=== PATIENT | male | born 1960 | race Hispanic/Latino ===

== ENCOUNTER 2016-12-22 18:03 | Observation (INO) | payer MEDICAID, OTHER ==
[2016-12-22 18:03] VITALS: PULSE 73
[2016-12-22 18:16] VITALS: BMI 27.1
--- NOTE | 2016-12-22 18:36 | ED PDOC ---
Arrival/HPI - General Chief Complaint: Alcohol Ingestion Time Seen by Provider: 12/22/16 18:08 Historian: Patient - History of Present Illness Narrative History of Present Illness (Text): 12/22/16 18:32 56 year old male brought in by ambulance for alcohol intoxication. Patient admits to drinking today. No other complaints at this time. Time/Duration: 24 hours Symptom Onset: Gradual Modifying Factors (Text): None Associated Symptoms (Text): None Past Medical History - Provider Review Nursing Documentation Reviewed: Yes - Past History Past History: Unable to Obtain - Infectious Disease Hx of Infectious Diseases: None - Tetanus Immunization Tetanus Immunization: Unknown - Cardiac Hx Cardiac Disorders: Yes Hx Hypertension: Yes Hx Peripheral Edema: Yes - Pulmonary Hx Respiratory Disorders: No - Neurological Hx Neurological Disorder: No - HEENT Hx HEENT Disorder: No - Renal Hx Renal Disorder: No - Endocrine/Metabolic Hx Endocrine Disorders: No - Hematological/Oncological Hx Cancer: No - Integumentary Hx Dermatological Disorder: No - Musculoskeletal/Rheumatological Hx Musculoskeletal Disorders: Yes Hx Fractures: Yes - Gastrointestinal Hx Gastrointestinal Disorders: No - Genitourinary/Gynecological Hx Genitourinary Disorders: No Hx Reproductive Disorders: No - Psychiatric Hx Psychophysiologic Disorder: Yes Hx Anxiety: Yes Hx Bipolar Disorder: Yes Hx Depression: Yes Hx Substance Use: No - Past Surgical History Past Surgical History: Non-Contributing - Surgical History Hx Orthopedic Surgery: Yes - Anesthesia Hx Anesthesia: Yes Hx Anesthesia Reactions: No - Suicidal Assessment Feels Threatened In Home Enviroment: No Family/Social History - Physician Review Nursing Documentation Reviewed: Yes Family/Social History: Unknown Family HX Smoking Status: cigar Hx Alcohol Use: Yes Amount per day: 10 Hx Substance Use: No Hx Substance Use Treatment: No Allergies/Home Meds Allergies/Adverse Reactions: Allergies No Known Allergies Allergy (Verified 12/22/16 18:11) Home Medications: Home Meds Medication Instructions Recorded Confirmed Aspirin [Aspirin Chewable] 81 mg PO DAILY 10/24/16 10/24/16 Metoprolol Succinate [Toprol XL] 25 mg PO DAILY 10/24/16 10/24/16 QUEtiapine [SEROquel] 0.5 tab PO DAILY 10/24/16 10/24/16 Venlafaxine [Effexor 50 MG] 225 mg PO DAILY 10/24/16 10/24/16 Review of Systems - Physician Review All systems were reviewed & negative as marked: Yes - Review of Systems Respiratory: absent: SOB Cardiovascular: absent: Chest Pain Gastrointestinal: absent: Abdominal Pain Physical Exam - Physical Exam Narrative Physical Exam (Text): Constitutional: No acute distress. Alcohol on breath. Head: Normocephalic. Atraumatic. Eyes: PERRL. ENT: Moist mucous membranes. Neck: Supple. Cardiovascular: Regular rate. Chest: No tenderness. Respiratory: Clear to auscultation bilaterally. GI: Soft. Nontender. Nondistended. Multiple scratch shelton on abdomen. Back: No CVA tenderness. Musculoskeletal: No tenderness or swelling of extremities. Skin: No rash. Neurologic: Alert, no focal deficit. Unsteady gait. Vital Signs Reviewed: Yes Vital Signs Temp Pulse Resp BP Pulse Ox 12/22/16 18:44 97.7 F 12/22/16 18:14 94 H 20 141/80 100 Blood Pressure: Normal Pulse: Regular Respiratory Rate: Normal Appearance: Positive for: Well-Appearing, Non-Toxic, Comfortable Pain Distress: None Mental Status: Positive for: other (Awake, Alert) Finger Stick Blood Glucose: 97 Medical Decision Making ED Course and Treatment: Impression: 56 year old male brought in by ambulance for alcohol intoxication. Plan: -- EKG, Chest X-ray -- Labs -- OBS Progress Notes: ED OBSERVATION Date of observation admission: 12/22/16 Time of observation admission: 18:32 - Observation admission statement Patient is being placed in observation because:: alcohol intoxication - Goals of Observation Goals of observation are:: pending sobriety - Progress Note Progress Note: 12/22/16 18:36 On initial exam patient has unsteady gait, alcohol on breath. 12/22/16 20:46 Patient resting comfortably in no acute distress. 12/22/16 22:30 Unsteady gait. Will sign out to ER night team pending sobriety. - Scribe Statement The provider has reviewed the documentation as recorded by the Josi Phoenix Provider Scribe Attestation: All medical record entries made by the Scribe were at my direction and personally dictated by me. I have reviewed the chart and agree that the record accurately reflects my personal performance of the history, physical exam, medical decision making, and the department course for this patient. I have also personally directed, reviewed, and agree with the discharge instructions and disposition. Disposition/Present on Arrival - Present on Arrival Any Indicators Present on Arrival: No History of DVT/PE: No History of Uncontrolled Diabetes: No Urinary Catheter: No History of Decub. Ulcer: No History Surgical Site Infection Following: None - Disposition Have Diagnosis and Disposition been Completed?: Yes Diagnosis: Alcohol abuse Disposition Time: 18:32 Condition: STABLE
[2016-12-23 04:41] VITALS: BP 122/75; PULSE 112; RESP 18; TEMP 98.5; O2SAT 96
== END 2016-12-23 05:42 | disposition home or self-care (01) ==
LOC: ED 18:03 → EROBSV 18:32
PROVIDERS: ADMIT Student in an Organized Health Care Education/Training Program; ATTEND Student in an Organized Health Care Education/Training Program
DX: F10.10 Alcohol abuse, uncomplicated (principal); Y90.9 Presence of alcohol in blood, level not specified
CPT/HCPCS: 82948; 99283; G0378

== ENCOUNTER 2017-03-04 14:25 | Observation (INO) | payer MEDICAID, OTHER ==
[2017-03-04 14:25] VITALS: PULSE 73
[2017-03-04 14:33] VITALS: BMI 34.0
--- NOTE | 2017-03-04 14:46 | ED PDOC ---
Arrival/HPI - General Chief Complaint: Alcohol Ingestion Time Seen by Provider: 03/04/17 14:30 Historian: Patient - History of Present Illness Narrative History of Present Illness (Text): 03/04/17 15:00 56yo male BIBA for alcohol intoxication. Per the RN EMS states they found patient sleeping in a [place] intoxicated. Patient is a known alcoholic to the ED. He admitted drinking pint of Vodka in ED. He appeared somnolent, but arousable and answering questions. He denies any somatic complaint. Past Medical History - Provider Review Nursing Documentation Reviewed: Yes - Past History Past History: Unable to Obtain - Infectious Disease Hx of Infectious Diseases: None - Tetanus Immunization Tetanus Immunization: Unknown - Cardiac Hx Hypertension: Yes Hx Peripheral Edema: Yes - Pulmonary Hx Tuberculosis: No - Neurological HX Cerebrovascular Accident: No Hx Seizures: No - HEENT Hx HEENT Disorder: No - Renal Hx Renal Disorder: No - Endocrine/Metabolic Hx Endocrine Disorders: No - Hematological/Oncological Hx Cancer: No - Integumentary Hx Dermatological Disorder: No - Musculoskeletal/Rheumatological Hx Fractures: Yes - Gastrointestinal Hx Gastrointestinal Disorders: No - Genitourinary/Gynecological Hx Sexually Transmitted Diseases: No - Psychiatric Hx Anxiety: Yes Hx Bipolar Disorder: Yes Hx Depression: Yes Hx Substance Use: No - Past Surgical History Past Surgical History: Non-Contributing - Surgical History Other/Comment: had sx to drain left elbow infection 10 yrs ago - Anesthesia Hx Anesthesia: Yes Hx Anesthesia Reactions: No Hx Malignant Hyperthermia: No - Suicidal Assessment Feels Threatened In Home Enviroment: No Family/Social History - Physician Review Nursing Documentation Reviewed: Yes Family/Social History: Unknown Family HX Smoking Status: Light Smoker < 10 Cigarettes Daily Hx Alcohol Use: Yes Amount per day: 10 Hx Substance Use: No Hx Substance Use Treatment: No Allergies/Home Meds Allergies/Adverse Reactions: Allergies No Known Allergies Allergy (Verified 12/27/16 12:05) Review of Systems - Review of Systems Systems not reviewed;Unavailable: Intoxicated Physical Exam - Physical Exam Physical Exam Limitations: Intoxication Vital Signs Reviewed: Yes Vital Signs Temp Pulse Resp BP Pulse Ox 03/04/17 17:51 98.3 F 100 H 18 122/79 98 03/04/17 14:41 97.6 F 106 H 16 126/77 94 L Temperature: Afebrile Blood Pressure: Normal Pulse: Regular Respiratory Rate: Normal Appearance: Positive for: Well-Appearing, Non-Toxic, Comfortable, Other ( Alcohol breathe and somnolent) Pain Distress: None Mental Status: Positive for: Alert and Oriented X 3 - Systems Exam Head: Present: Atraumatic, Normocephalic Respiratory/Chest: Present: Clear to Auscultation, Good Air Exchange. No: Respiratory Distress, Accessory Muscle Use Cardiovascular: Present: Regular Rate and Rhythm, Normal S1, S2. No: Murmurs Abdomen: Present: Normal Bowel Sounds. No: Tenderness, Distention, Peritoneal Signs Upper Extremity: Present: Normal Inspection. No: Cyanosis, Edema Lower Extremity: Present: Normal Inspection. No: Edema Neurological: No: Speech Normal (slow) Skin: Present: Warm, Dry, Normal Color, Abrasion (Multiple healing abrasions noted to b/l arm and face). No: Rashes Psychiatric: Present: Intoxicated Medical Decision Making ED Course and Treatment: 03/05/17 01:58 Pt a known alcoholic user to ED, biba for alcohol intoxication. He was lethargic/somnolent on presentation, but became more alert while in ED. He complained of right shoulder pain and was given Tylenol. right shoulder xray and Head Ct was negative. He was noted to be ambulatory with a stable gait in ED. Requested for food and was fed. He demanded to be DC home and was Discharged home. - Medication Orders Current Medication Orders: Discontinued Medications Acetaminophen (Tylenol 325mg Tab) 650 mg PO ONCE STA Stop: 03/04/17 16:35 Last Admin: 03/04/17 16:53 Dose: 650 mg ED OBSERVATION Discharge: Yes Date of observation admission: 03/04/17 Time of observation admission: 14:45 - Observation admission statement Patient is being placed in observation because:: Observe for sobriety - Goals of Observation Goals of observation are:: Observe for sobriety Disposition/Present on Arrival - Present on Arrival Any Indicators Present on Arrival: No History of DVT/PE: No History of Uncontrolled Diabetes: No Urinary Catheter: No History of Decub. Ulcer: No History Surgical Site Infection Following: None - Disposition Have Diagnosis and Disposition been Completed?: Yes Diagnosis: Alcohol intoxication Disposition: HOME/ ROUTINE Disposition Time: 18:15 Patient Plan: Discharge Condition: STABLE
--- NOTE | 2017-03-04 17:23 | CT ---
PROCEDURE: CT HEAD WITHOUT CONTRAST. HISTORY: Head injury COMPARISON: None available. TECHNIQUE: Axial computed tomography images were obtained through the head/brain without intravenous contrast. Radiation dose: Total exam DLP = 822.62 mGy-cm. This CT exam was performed using one or more of the following dose reduction techniques: Automated exposure control, adjustment of the mA and/or kV according to patient size, and/or use of iterative reconstruction technique. FINDINGS: HEMORRHAGE: No intracranial hemorrhage. BRAIN: Lockhart-white matter differentiation is preserved. There is no mass, mass effect or abnormal extra-axial fluid collection. VENTRICLES: The ventricles are normal in size, shape and configuration. CALVARIUM: There is no calvarial fracture or extracranial soft tissue swelling. PARANASAL SINUSES: Predominantly clear. MASTOID AIR CELLS: Predominantly clear. OTHER FINDINGS: None. IMPRESSION: No acute intracranial abnormality.
[2017-03-04 17:53] VITALS: BP 122/79; PULSE 100; RESP 18; TEMP 98.3; O2SAT 98
--- NOTE | 2017-03-05 09:53 | RAD ---
PROCEDURE: Radiographs of the Right Shoulder HISTORY: Shoulder Pain. No history of recent/ related trauma provided COMPARISON: No prior. FINDINGS: BONES: No acute fracture. JOINTS: Preserved glenohumeral relationship, acromioclavicular degenerative change: Mild. SOFT TISSUES: Normal. OTHER FINDINGS: None. IMPRESSION: No acute findings related to/accounting for the clinical presentation.
--- NOTE | 2017-03-05 10:12 | CARD ---
APPROVED REPORT EKG Measurement Heart [id number] <Conclusion> Sinus tachycardia with PVC's RVCD Laftward axis NSSTW changes Prolonged QTc No change
== END 2017-03-04 18:21 | disposition home or self-care (01) ==
LOC: ED 14:25 → EROBSV 14:45
PROVIDERS: ADMIT Student in an Organized Health Care Education/Training Program; ATTEND Student in an Organized Health Care Education/Training Program
DX: F10.129 Alcohol abuse with intoxication, unspecified (principal); F17.210 Nicotine dependence, cigarettes, uncomplicated; I10 Essential (primary) hypertension
CPT/HCPCS: 70450; 73030; 93005; 99282; G0378

== ENCOUNTER 2017-05-16 12:36 | Observation (INO) | payer OTHER ==
[2017-05-16 12:37] VITALS: PULSE 73; BMI 34.0
[2017-05-16 13:00] VITALS: PULSE 72; RESP 16; O2SAT 98
[2017-05-16 13:01] VITALS: BP 90/68; TEMP 98.3
--- NOTE | 2017-05-16 13:01 | ED PDOC ---
Arrival/HPI - General Time Seen by Provider: 05/16/17 12:38 Historian: Patient, EMS - History of Present Illness Narrative History of Present Illness (Text): 05/16/17 12:57 56 y/o male, not on any anticoagulant, biba for etoh intoxication in the public with alcohol on breath. Pt. stated that he did drink today, sleeping on the street, no fall or trauma, no pain or discomfort, last tetanus doesn't remember as he has old abrasion wound on the rt. knee but able to walk without any pain. Pt. has no homicidal or suicidal ideation, no head/neck injury, no auditory or visual hallucination, no night sweat, no rash, no other medical or psychological complaints. Past Medical History - Provider Review Nursing Documentation Reviewed: Yes - Past History Past History: Unable to Obtain - Infectious Disease Hx of Infectious Diseases: None - Tetanus Immunization Tetanus Immunization: Unknown - Cardiac Hx Hypertension: Yes Hx Peripheral Edema: Yes - Pulmonary Hx Tuberculosis: No - Neurological HX Cerebrovascular Accident: No Hx Seizures: No - HEENT Hx HEENT Disorder: No - Renal Hx Renal Disorder: No - Endocrine/Metabolic Hx Endocrine Disorders: No - Hematological/Oncological Hx Cancer: No - Integumentary Hx Dermatological Disorder: No - Musculoskeletal/Rheumatological Hx Fractures: Yes - Gastrointestinal Hx Gastrointestinal Disorders: No - Genitourinary/Gynecological Hx Sexually Transmitted Diseases: No - Psychiatric Hx Anxiety: Yes Hx Bipolar Disorder: Yes Hx Depression: Yes Hx Substance Use: No - Past Surgical History Past Surgical History: Non-Contributing - Surgical History Other/Comment: had sx to drain left elbow infection 10 yrs ago - Anesthesia Hx Anesthesia: Yes Hx Anesthesia Reactions: No Hx Malignant Hyperthermia: No - Suicidal Assessment Feels Threatened In Home Enviroment: No Family/Social History - Physician Review Nursing Documentation Reviewed: Yes Family/Social History: Unknown Family HX Smoking Status: Light Smoker < 10 Cigarettes Daily Hx Alcohol Use: Yes Amount per day: 10 Hx Substance Use: No Hx Substance Use Treatment: No Allergies/Home Meds Allergies/Adverse Reactions: Allergies No Known Allergies Allergy (Verified 12/27/16 12:05) Home Medications: Home Meds Medication Instructions Recorded Confirmed Unobtainable 05/16/17 05/16/17 Review of Systems - Review of Systems Constitutional: absent: Fatigue, Fevers Eyes: absent: Vision Changes ENT: absent: Hearing Changes Respiratory: absent: SOB, Cough Cardiovascular: absent: Chest Pain Gastrointestinal: absent: Abdominal Pain, Diarrhea, Nausea, Vomiting Musculoskeletal: absent: Arthralgias, Back Pain, Myalgias Skin: absent: Rash, Pruritis Neurological: absent: Headache, Focal Weakness, Speech Changes, Facial Droop Physical Exam Vital Signs Temp Pulse Resp BP Pulse Ox 05/16/17 12:55 98.3 F 72 16 90/68 L 98 - Systems Exam Head: Present: Atraumatic, Normocephalic. No: Tenderness, Contusion, Swelling, Ecchymosis, Abrasion, Laceration, Other Pupils: Present: PERRL Extroacular Muscles: Present: EOMI Conjunctiva: Present: Normal Mouth: Present: Moist Mucous Membranes Nose (External): Present: Atraumatic. No: Abrasion, Laceration, Lesions Nose (Internal): Present: Normal Inspection, No Active Bleeding. No: Rhinorrhea , Septal Hematoma, Epistaxis Neck: Present: Normal Range of Motion, Trachea Midline. No: MIDLINE TENDERNESS , Paraspinal Tenderness, Lymphadenopathy Respiratory/Chest: Present: Clear to Auscultation, Good Air Exchange. No: Respiratory Distress, Accessory Muscle Use Cardiovascular: Present: Regular Rate and Rhythm, Normal S1, S2. No: Murmurs Abdomen: Present: Normal Bowel Sounds. No: Tenderness, Distention, Peritoneal Signs Back: Present: Normal Inspection Upper Extremity: Present: Normal Inspection. No: Cyanosis, Edema Lower Extremity: Present: Normal Inspection, Other (Rt. knee: visible superficial healing abrasion approx. 2cm diameter with no cellulitis or streaking, no ulcers, no bony tenderness or deformities, FROM without limitation , sensation intact, motor 5/5, +DPPT pulses, no focal neurological deficits. ). No: Edema Neurological: Present: GCS=15, Speech Normal, Motor Func Grossly Intact, Gait Normal, Memory Normal Skin: Present: Warm, Dry, Normal Color. No: Rashes Psychiatric: Present: Alert, Oriented x 3, Normal Insight, Normal Concentration Medical Decision Making ED Course and Treatment: 05/16/17 13:00 -tdap -wound irrigate with normal saline, clean with betadine, bacitracin and gauze dressing -will check electrolytes and IV banana bag. - Lab Interpretations Lab Results: 05/16/17 13:35 05/16/17 13:35 Lab Results 05/16/17 13:35: Salicylates < 1 L, Acetaminophen < 10.0 L 05/16/17 13:35: Sodium 147, Potassium 3.4 L, Chloride 106, Carbon Dioxide 25, Anion Gap 19, BUN 6 L, Creatinine 1.1, Est GFR ( Amer) > 60, Est GFR (Non -Af Amer) > 60, Random Glucose 97, Calcium 8.6, Magnesium 1.9, Total Bilirubin 0.5, AST 62 H, ALT 47, Alkaline Phosphatase 126, Total Creatine Kinase 187, Total Protein 7.0, Albumin 4.2, Globulin 2.8, Albumin/Globulin Ratio 1.5 05/16/17 13:35: WBC 6.1, RBC 4.60, Hgb 14.3, Hct 40.8 L, MCV 88.7, MCH 31.1, MCHC 35.0, RDW 14.9 H, Plt Count 138, MPV 9.5, Gran % 54.9, Lymph % (Auto) 32.9 , [place] % (Auto) 10.7 H, Eos % (Auto) 1.3 L, Baso % (Auto) 0.2, Gran # 3.32, Lymph # 2.0, [place] # 0.7 H, Eos # 0.1, Baso # 0.01 I have reviewed the lab results: Yes Interpretation: Abnormal lab values (K+ 3.4) - Medication Orders Current Medication Orders: Discontinued Medications Multivitamins/Vitamin C 10 ml/Thiamine HCl 100 mg/ Folic Acid 1 mg/ Dextrose 1, 011.2 mls @ 500 mls/hr IV .Q2H2M ONE Stop: 05/16/17 15:03 Last Admin: 05/16/17 14:02 Dose: 500 mls/hr Potassium Chloride (K-Dur 20 Meq Er Tab) 20 meq PO STAT STA Stop: 05/16/17 13:57 Tetanus/Reduced Diphtheria/Acell Pertussis (Boostrix Vaccine Inj) 0.5 ml IM .ONCE ONE Stop: 05/16/17 13:03 Last Admin: 05/16/17 14:02 Dose: 0.5 ml ED OBSERVATION Date of observation admission: 05/16/17 Time of observation admission: 14:00 - Observation admission statement Patient is being placed in observation because:: alcohol intoxication - Goals of Observation Goals of observation are:: sober - Progress Note Progress Note: 05/16/17 14:00 -Labs are non-significant except K+ 3.4, correct with potassium chloride 20meq po. -Pt. is sleeping well. 05/16/17 16:00 -Pt. is sleeping, no medical or psychological complaints. 05/16/17 17:44 -Pt. is awake from the sleep. -Pt. is sobered, walking with normal gait and posture independently, no tremors or tongue fasciculation, no facial twitching, no nausea or vomiting, no diarrhea , food and juice given which he tolerated well, will discharge home. -Discharge home with education on stay hydrated, avoid drinking and publicly intoxicated, follow up with your own pmd within 2 days, return to the ER for any new or worsening signs or symptoms. - PA / CENTRIFUGAL SEPARATOR / Resident Statement / has reviewed & agrees with the documentation as recorded. Disposition/Present on Arrival - Present on Arrival Any Indicators Present on Arrival: No History of DVT/PE: No History of Uncontrolled Diabetes: No Urinary Catheter: No History of Decub. Ulcer: No History Surgical Site Infection Following: None - Disposition Have Diagnosis and Disposition been Completed?: Yes Diagnosis: Abrasion, Alcohol intoxication, Hypokalemia Disposition: HOME/ ROUTINE Disposition Time: 13:01 Patient Plan: Discharge Patient Problems: Current Active Problems Problem Status Onset Alcohol intoxication Acute Abrasion Acute Hypokalemia Acute Condition: IMPROVED
[2017-05-16] MEDS ORDERED: TDAP Vaccine 0.5 mL Syr IM ONE (13:02)
[2017-05-16] MEDS ORDERED: Multivitamin (MVI) 10 ML, Thiamine 100 MG, Folic Acid 1 MG in Dextrose 5% In Water 1,00... IV ONE (13:02)
[2017-05-16 13:43] LABS: BASO # 0.01 K/mm3 (0.0-2.0); BASO % 0.2 % (0.0-3.0); EOS # 0.1 (0.0-0.7); EOS % 1.3 % (1.5-5.0); GRAN # 3.32 (1.4-6.5); GRAN % 54.9 % (50.0-68.0); HEMATOCRIT 40.8 % (42.0-52.0); LYMPH % 32.9 % (22.0-35.0); MEAN CELL VOLUME 88.7 fl (80.0-105.0); MEAN CORPUSCULAR HEMOGLOBIN 31.1 pg (25.0-35.0); MEAN PLATELET VOLUME 9.5 fl (7.0-11.0); MONO # 0.7 (0.1-0.6); MONO % 10.7 % (1.0-6.0); RED CELL DISTRIBUTION WIDTH 14.9 % (11.5-14.5); WHITE BLOOD COUNT 6.1 10^3/ul (4.5-11.0)
[2017-05-16 13:50] LABS: ALB/GLOB RATIO 1.5 (1.1-1.8); ALKALINE PHOSPHATASE 126 U/L (38-133); ALT/SGPT 47 U/L (7-56); AST/SGOT 62 U/L (15-59); BILIRUBIN,TOTAL 0.5 mg/dL (0.2-1.3); BLOOD UREA NITROGEN 6 mg/dL (7-21); CALCIUM 8.6 mg/dL (8.4-10.5); CARBON DIOXIDE 25 mmol/L (21-33); CHLORIDE 106 mmol/L (98-107); GFR AFRICAN-AMERICAN > 60; GLUCOSE,RANDOM 97 mg/dL (70-110); MAGNESIUM 1.9 mg/dL (1.7-2.2); POTASSIUM 3.4 mmol/L (3.6-5.0); SODIUM 147 mmol/L (132-148)
[2017-05-16] MEDS ORDERED: Potassium Chloride 20 mEq ER Tab PO STA (13:56)
== END 2017-05-16 18:05 | disposition home or self-care (01) ==
LOC: ED 12:36 → EROBSV 14:28
PROVIDERS: ADMIT Student in an Organized Health Care Education/Training Program; ATTEND Student in an Organized Health Care Education/Training Program
DX: F10.129 Alcohol abuse with intoxication, unspecified (principal); E87.6 Hypokalemia; Z23 Encounter for immunization; S80.211A Abrasion, right knee, initial encounter; X58.XXXA Exposure to other specified factors, initial encounter
CPT/HCPCS: 80053; 80329; 82550; 83735; 85025; 90471; 90715; 96360; 96361; 99282; J3411; J7070

== ENCOUNTER 2017-05-16 19:11 | Observation (INO) | payer OTHER ==
[2017-05-16 19:12] VITALS: PULSE 73; BMI 34.0
--- NOTE | 2017-05-16 19:51 | ED PDOC ---
Arrival/HPI - General Chief Complaint: Alcohol Ingestion Time Seen by Provider: 05/16/17 19:12 Historian: Patient - History of Present Illness Narrative History of Present Illness (Text): 05/16/17 19:46 A 56 year old male, whose past medical history includes alcohol abuse, hypertension, CHF, atrial fibrillation and depression, was brought into the emergency department by EMS for alcohol intoxication. Patient was recently discharged from the emergency room earlier this evening. Patient reports he went to the liquor store and purchased more alcohol. He states while walking he stumbled and fell to his knees. Patient is unsure if he hit his head but denies any loss of consciousness, headache, dizziness, visual changes, neck pain, fever , chills, nausea, vomiting, abdominal pain, urinary symptoms, back pain, chest pain, shortness of breath, suicidal ideation, homicidal ideation or any other complaints. Time/Duration: Prior to Arrival Symptom Course: Unchanged Quality: Other Context: Other Past Medical History - Provider Review Nursing Documentation Reviewed: Yes - Past History Past History: Unable to Obtain - Infectious Disease Hx of Infectious Diseases: None - Tetanus Immunization Tetanus Immunization: Unknown - Cardiac Hx Hypertension: Yes Hx Peripheral Edema: Yes - Pulmonary Hx Tuberculosis: No - Neurological HX Cerebrovascular Accident: No Hx Seizures: No - HEENT Hx HEENT Disorder: No - Renal Hx Renal Disorder: No - Endocrine/Metabolic Hx Endocrine Disorders: No - Hematological/Oncological Hx Cancer: No - Integumentary Hx Dermatological Disorder: No - Musculoskeletal/Rheumatological Hx Fractures: Yes - Gastrointestinal Hx Gastrointestinal Disorders: No - Genitourinary/Gynecological Hx Sexually Transmitted Diseases: No - Psychiatric Hx Anxiety: Yes Hx Bipolar Disorder: Yes Hx Depression: Yes Hx Substance Use: No - Past Surgical History Past Surgical History: Non-Contributing - Surgical History Other/Comment: had sx to drain left elbow infection 10 yrs ago - Anesthesia Hx Anesthesia: Yes Hx Anesthesia Reactions: No Hx Malignant Hyperthermia: No - Suicidal Assessment Feels Threatened In Home Enviroment: No Family/Social History - Physician Review Nursing Documentation Reviewed: Yes Family/Social History: No Known Family HX Smoking Status: Light Smoker < 10 Cigarettes Daily Hx Alcohol Use: Yes Amount per day: 10 Hx Substance Use: No Hx Substance Use Treatment: No Allergies/Home Meds Allergies/Adverse Reactions: Allergies No Known Allergies Allergy (Verified 12/27/16 12:05) Home Medications: Home Meds Medication Instructions Recorded Confirmed Unobtainable 05/16/17 05/16/17 Review of Systems - Physician Review All systems were reviewed & negative as marked: Yes - Review of Systems Constitutional: absent: Fevers, Night Sweats Eyes: absent: Vision Changes Respiratory: absent: SOB Cardiovascular: absent: Chest Pain Gastrointestinal: absent: Abdominal Pain, Nausea, Vomiting Musculoskeletal: Other (Bilateral knee pain). absent: Back Pain, Neck Pain Neurological: absent: Headache, Dizziness Psychiatric: absent: Suicidal Ideation (/Homicidal ideation) Physical Exam Vital Signs Reviewed: Yes Vital Signs Temp Pulse Resp BP Pulse Ox 05/17/17 00:00 98.1 F 84 18 122/74 99 05/16/17 22:57 82 16 95/41 L 93 L 05/16/17 19:22 98.2 F 84 18 124/72 100 Temperature: Afebrile Blood Pressure: Normal Pulse: Regular Respiratory Rate: Normal Appearance: Positive for: Other (Alcohol on breath, disheveled) Pain Distress: None Mental Status: Positive for: Alert and Oriented X 3 - Systems Exam Head: Present: Normocephalic, Abrasion (R mid parietal area) Pupils: Present: PERRL Extroacular Muscles: Present: EOMI Conjunctiva: Present: Normal Mouth: Present: Moist Mucous Membranes Pharnyx: No: ERYTHEMA, EXUDATE, TONSILS ENLARGED Neck: Present: Normal Range of Motion Respiratory/Chest: Present: Clear to Auscultation, Good Air Exchange. No: Respiratory Distress, Accessory Muscle Use Cardiovascular: Present: Regular Rate and Rhythm, Normal S1, S2. No: Murmurs Abdomen: Present: Normal Bowel Sounds. No: Tenderness, Distention, Peritoneal Signs Back: Present: Normal Inspection Upper Extremity: Present: Normal Inspection. No: Cyanosis, Edema Lower Extremity: Present: NORMAL PULSES, Normal ROM, Neurovascularly Intact, Other (bilateral infrapatellar abrasions on knees). No: Edema, CALF TENDERNESS , Deformity, Temperature Abnormalties Neurological: Present: GCS=15, CN II-XII Intact, Speech Normal Skin: Present: Warm, Dry, Normal Color. No: Rashes Psychiatric: Present: Alert, Oriented x 3, Normal Insight, Normal Concentration Medical Decision Making ED Course and Treatment: 05/16/17 19:46 Impression: A 56 year old male brought in for alcohol intoxication. Patient notes bilateral knee pain after mechanical fall. Plan: -- Head CT -- Bilateral knee xray -- Reassess and disposition Progress Notes: 05/16/17 21:[address] without contrast: Creator : KAHLIL ADAMS COMPARISON: CT - HEAD W/O CONTRAST 03/04/2017 4:58:05 PM FINDINGS: Brain: Ventricles are normal in size and configuration. There is no midline shift. There are no intra-axial or extra-axial mass lesions or areas of hemorrhage. There are no abnormal fluid collections. Lockhart-white differentiation is maintained. Ventricles: See above. Bones: Cranial vault is intact. Soft tissues: unremarkable Sinuses: There is no acute sinusitis. Ears and mastoids: Middle ears and mastoids are unremarkable Orbits: Orbital contents are unremarkable. Dental: Motion artifact degrades image quality. The Streak artifact from dental fillings degrades image quality. IMPRESSION: Limited by patient motion, no acute intracranial abnormality 05/16/17 21:20 Knee X-ray: No fractures. 05/17/17 06:08 CXR: nad as read by me; EKG: NSR @ 94 with PACs with QTC of 487; no ST/T changes - RAD Interpretation Compressor Engineer: ED Physician (Knee X-ray), Radiologist - Medication Orders Current Medication Orders: Discontinued Medications Chlordiazepoxide (Librium) 25 mg PO STAT STA PRN Reason: Protocol Stop: 05/16/17 22:35 Last Admin: 05/16/17 23:02 Dose: 25 mg Folic Acid 1 mg/ Thiamine HCl 100 mg/ Multivitamins/Vitamin C 10 ml/ Magnesium Sulfate 2 gm/ Dextrose/Sodium Chloride 1,015.2 mls @ 500 mls/hr IV ONCE ONE Stop: 05/17/17 00:34 Last Admin: 05/17/17 00:40 Dose: 500 mls/hr ED OBSERVATION Discharge: Yes Date of observation admission: 05/16/17 Time of observation admission: 19:30 - Observation admission statement Patient is being placed in observation because:: ETOH intoxication - Goals of Observation Goals of observation are:: waiting for sobriety and relief of pain symptoms on bilateral knees - Progress Note Progress Note: 05/16/17 22:36 Patient currently has normal speech and is able to ambulate, but states his legs are weak and his knees are about to give out. 05/17/17 12:20 Labs ordered; unremarkable. Alcohol level of 336; awaiting banana bag 05/17/17 2:10 Resting comfortably, Still receiving banana bag. 05/17/17 04:10 Banana bag near complete; resting comfortably; patient saying he wants inpatient etoh detox. Spoke with [facility] ([facility] who said they have beds, and patient will need PES eval. 05/17/17 06:00 Patient is medically cleared for alcohol detox. PES has seen patient. 05/17/17 07:00 Patient was endorsed to Dr. Goldsmith. - Scribe Statement The provider has reviewed the documentation as recorded by the Scribe Jessica Colby Provider Scribe Attestation: All medical record entries made by the Scribe were at my direction and personally dictated by me. I have reviewed the chart and agree that the record accurately reflects my personal performance of the history, physical exam, medical decision making, and the department course for this patient. I have also personally directed, reviewed, and agree with the discharge instructions and disposition. Disposition/Present on Arrival - Present on Arrival Any Indicators Present on Arrival: No History of DVT/PE: No History of Uncontrolled Diabetes: No Urinary Catheter: No History of Decub. Ulcer: No History Surgical Site Infection Following: None - Disposition Have Diagnosis and Disposition been Completed?: Yes Diagnosis: Alcohol abuse Disposition: Transfer [facility] ([facility] Disposition Time: 07:30 Patient Plan: Transfer To ([facility]) Patient Problems: Current Active Problems Problem Status Onset Abrasion Acute Alcohol intoxication Acute Hypokalemia Acute Condition: FAIR
--- NOTE | 2017-05-16 21:12 | CT ---
EXAM: CT Head Without Intravenous Contrast EXAM DATE/TIME: 05/16/2017 7:40 PM CLINICAL HISTORY: 56 years old, male; Injury or trauma; Fall; Initial encounter; Abrasion; Head, generalized; Additional info: ETOH, fall TECHNIQUE: Axial computed tomography images of the head/brain without intravenous contrast. All CT scans at this facility use one or more dose reduction techniques, viz.: automated exposure control; ma/kV adjustment per patient size (including targeted exams where dose is matched to indication; i.e. head); or iterative reconstruction technique. COMPARISON: CT - HEAD W/O CONTRAST 03/04/2017 4:58:05 PM FINDINGS: Brain: Ventricles are normal in size and configuration. There is no midline shift. There are no intra-axial or extra-axial mass lesions or areas of hemorrhage. There are no abnormal fluid collections. Lockhart-white differentiation is maintained. Ventricles: See above. Bones: Cranial vault is intact. Soft tissues: unremarkable Sinuses: There is no acute sinusitis. Ears and mastoids: Middle ears and mastoids are unremarkable Orbits: Orbital contents are unremarkable. Dental: Motion artifact degrades image quality. The Streak artifact from dental fillings degrades image quality. IMPRESSION: Limited by patient motion, no acute intracranial abnormality
[2017-05-16] MEDS ORDERED: Folic Acid 1 MG, Thiamine 100 MG, Multivitamin (MVI) 10 ML, Magnesium Sulfate 2 GM in D... IV ONE (22:33)
[2017-05-16 23:21] LABS: ALB/GLOB RATIO 1.4 (1.1-1.8); ALKALINE PHOSPHATASE 113 U/L (38-133); ALT/SGPT 46 U/L (7-56); AMYLASE 45 U/L (35-125); AST/SGOT 64 U/L (15-59); BILIRUBIN,TOTAL 0.6 mg/dL (0.2-1.3); BLOOD UREA NITROGEN 6 mg/dL (7-21); CALCIUM 8.5 mg/dL (8.4-10.5); CARBON DIOXIDE 29 mmol/L (21-33); CHLORIDE 104 mmol/L (98-107); GFR AFRICAN-AMERICAN > 60; GLUCOSE,RANDOM 100 mg/dL (70-110); LIPASE 207 U/L (23-300); POTASSIUM 3.9 mmol/L (3.6-5.0); TOTAL PROTEIN 6.9 g/dL (5.8-8.3)
[2017-05-16 23:22] LABS: BASO # 0.02 K/mm3 (0.0-2.0); BASO % 0.2 % (0.0-3.0); EOS # 0.1 (0.0-0.7); EOS % 0.8 % (1.5-5.0); GRAN # 5.75 (1.4-6.5); GRAN % 67.9 % (50.0-68.0); LYMPH # 1.9 (1.2-3.4); MEAN CELL VOLUME 88.9 fl (80.0-105.0); MEAN CORPUSCULAR HEMOGLOBIN 31.1 pg (25.0-35.0); MEAN PLATELET VOLUME 9.9 fl (7.0-11.0); MONO # 0.8 (0.1-0.6); MONO % 9.1 % (1.0-6.0); WHITE BLOOD COUNT 8.5 10^3/ul (4.5-11.0)
[2017-05-16 23:24] LABS: SODIUM 145 mmol/L (132-148)
[2017-05-16 23:30] LABS: INR 0.96 (0.93-1.08); PARTIAL THROMBOPLASTIN TIME 26.1 Seconds (23.7-30.8)
[2017-05-16 23:32] LABS: TROPONIN I < 0.01 ng/mL
[2017-05-17 04:56] LABS: URINE BILIRUBIN NEGATIVE (NEGATIVE); URINE BLOOD NEGATIVE (NEGATIVE); URINE GLUCOSE (UA) NEGATIVE (NEGATIVE); URINE KETONE NEGATIVE (NEGATIVE); URINE LEUKOCYTE ESTERASE NEGATIVE Leu/uL (NEGATIVE); URINE PROTEIN TRACE mg/dL (<30 mg/dL); URINE UROBILINOGEN 0.2 E.U./dL (<1 E.U./dL)
[2017-05-17 05:10] LABS: URINE APPEARANCE CLEAR (CLEAR); URINE COLOR YELLOW (YELLOW)
[2017-05-17 05:11] LABS: URINE RBC 0 - 2 /hpf (0-2)
[2017-05-17 05:12] LABS: URINE BACTERIA RARE (NEG)
[2017-05-17 06:37] VITALS: RESP 18; TEMP 98.1
--- NOTE | 2017-05-17 07:03 | RAD ---
HISTORY: etoh abuse; psych COMPARISON: 05/12/2016 TECHNIQUE: Chest PA and lateral FINDINGS: LUNGS: No active pulmonary disease. PLEURA: No significant pleural effusion identified. No pneumothorax apparent. CARDIOVASCULAR: Normal. OSSEOUS STRUCTURES: No significant abnormalities. VISUALIZED UPPER ABDOMEN: Normal. OTHER FINDINGS: None. IMPRESSION: No active disease. No interval change
--- NOTE | 2017-05-17 07:12 | ED PDOC ---
Physical Exam Vital Signs Temp Pulse Resp BP Pulse Ox 05/17/17 09:23 74 18 150/82 96 05/17/17 07:28 87 18 120/70 98 05/17/17 00:00 98.1 F 84 18 122/74 99 05/16/17 22:57 82 16 95/41 L 93 L 05/16/17 19:22 98.2 F 84 18 124/72 100 Medical Decision Making ED Course and Treatment: 05/17/17 07:00 Patient signed out to me by Dr. Moran. Pending Manuel acceptance for alcohol detox. On reevaluation, patient is in no distress. Patient is A&O x3, no signs or symptoms of ETOH withdrawal. 05/17/17 11:10 Patient medically cleared for psychiatric evaluation 05/17/17 12:28 accepted to detox, pending transport, under Dr. Piña's service (per PES) - Medication Orders Current Medication Orders: Discontinued Medications Chlordiazepoxide (Librium) 25 mg PO STAT STA PRN Reason: Protocol Stop: 05/16/17 22:35 Last Admin: 05/16/17 23:02 Dose: 25 mg Chlordiazepoxide (Librium) 50 mg PO STAT STA PRN Reason: Protocol Stop: 05/17/17 08:52 Last Admin: 05/17/17 09:32 Dose: 50 mg Folic Acid 1 mg/ Thiamine HCl 100 mg/ Multivitamins/Vitamin C 10 ml/ Magnesium Sulfate 2 gm/ Dextrose/Sodium Chloride 1,015.2 mls @ 500 mls/hr IV ONCE ONE Stop: 05/17/17 00:34 Last Admin: 05/17/17 00:40 Dose: 500 mls/hr - Scribe Statement The provider has reviewed the documentation as recorded by the Josi Smyth Provider Scribe Attestation: All medical record entries made by the Scribe were at my direction and personally dictated by me. I have reviewed the chart and agree that the record accurately reflects my personal performance of the history, physical exam, medical decision making, and the department course for this patient. I have also personally directed, reviewed, and agree with the discharge instructions and disposition. Disposition/Present on Arrival - Present on Arrival Any Indicators Present on Arrival: No History of DVT/PE: No History of Uncontrolled Diabetes: No Urinary Catheter: No History of Decub. Ulcer: No History Surgical Site Infection Following: None - Disposition Have Diagnosis and Disposition been Completed?: Yes Diagnosis: Alcohol abuse Disposition: Transfer [facility] Disposition Time: 12:28 Patient Plan: Transfer To ([facility]) Patient Problems: Current Active Problems Problem Status Onset Abrasion Acute Alcohol abuse Acute Alcohol intoxication Acute Hypokalemia Acute Condition: FAIR
[2017-05-17 12:41] VITALS: O2SAT 98
[2017-05-17 14:35] VITALS: BP 134/71; PULSE 74
--- NOTE | 2017-05-17 14:48 | RAD ---
PROCEDURE: Bilateral Knee Radiographs. HISTORY: b/L knee pain s/p fall COMPARISON: None. FINDINGS: BONES: No fracture or subluxation. Each medial femoral compartment joint space appears narrowed. There is bilateral mild valgus orientation also suggested JOINTS: Mild medial femoral tibial bilateral joint space narrowing consistent with degenerative changes SOFT TISSUES: Right Knee: Normal. Left Knee: Normal. JOINT EFFUSION: Right Knee: None. Left Knee: None. OTHER FINDINGS: No patellar subluxation. Possible minimal patellar trochlear joint space narrowing IMPRESSION: No fracture. Bilateral medial femoral tibial compartment dull degenerative joint space narrowing
--- NOTE | 2017-05-17 19:18 | CARD ---
APPROVED REPORT EKG Measurement Heart [id number] <Conclusion> Sinus rhythm with PVCs Prolonged QT Abnormal ECG
== END 2017-05-17 14:40 | disposition short-term general hospital (02) ==
LOC: ED 19:11 → EROBSV 19:30
PROVIDERS: ADMIT Emergency Medicine; ATTEND Emergency Medicine
DX: F10.10 Alcohol abuse, uncomplicated (principal); Y90.8 Blood alcohol level of 240 mg/100 ml or more; I10 Essential (primary) hypertension; I48.91 Unspecified atrial fibrillation
CPT/HCPCS: 36415; 70450; 71020; 73562; 80053; 80320; 80324; 80345; 80346; 80349; 80353; 80358; 80361; 81001; 82150; 82550; 83615; 83690; 83992; 84484; 85025; 85610; 85730; 90791; 93005; 96360; 99284; J3411; J3475

== ENCOUNTER 2017-07-27 22:41 | Emergency (ER) | payer MEDICAID, OTHER ==
[2017-07-27 22:41] VITALS: PULSE 73; BMI 34.0
[2017-07-27 23:07] VITALS: RESP 18; TEMP 97.4
--- NOTE | 2017-07-28 00:06 | ED PDOC ---
Arrival/HPI - General Historian: Patient, Police EM Caveat: Other (low blood pressure ) <SHIRA BLAIR - Last Filed: 07/28/17 00:44> <Jeronimo Patel - Last Filed: 07/28/17 00:47> - General Chief Complaint: Medical Clearance Time Seen by Provider: 07/27/17 22:56 - History of Present Illness Narrative History of Present Illness (Text): 07/28/17 00:10 55 y/o M with PMH HTN, afib, dyslipidemia, DM, alcohol abuse, CHF, and depression, brought in by police, for low blood pressure/medical clearance. Pt currently intoxicated, had 1.5 pint vodka this morning, BP found to be low 88/ 54 with mild dizziness. Currently, pt is asymptomatic, denies dizziness, chest pain, palpitations, sob, abdominal pain, n/v, sob. (SHIRA BLAIR) Past Medical History - Provider Review Nursing Documentation Reviewed: Yes - Past History Past History: Unable to Obtain - Infectious Disease Hx of Infectious Diseases: None - Tetanus Immunization Tetanus Immunization: Unknown - Cardiac Hx Atrial Fibrillation: Yes Hx Hypertension: Yes Hx Peripheral Edema: Yes - Pulmonary Hx Respiratory Disorders: No Hx Tuberculosis: No - Neurological Hx Neurological Disorder: No HX Cerebrovascular Accident: No - HEENT Hx HEENT Disorder: No - Renal Hx Renal Disorder: No - Endocrine/Metabolic Hx Endocrine Disorders: No - Hematological/Oncological Hx Blood Transfusions: No Hx Cancer: No - Integumentary Hx Dermatological Disorder: No - Musculoskeletal/Rheumatological Hx Falls: Yes (05/16/17) - Gastrointestinal Hx Gastrointestinal Disorders: No - Genitourinary/Gynecological Hx Genitourinary Disorders: No Hx Reproductive Disorders: No - Psychiatric Hx Anxiety: Yes Hx Bipolar Disorder: Yes Hx Depression: Yes Hx Substance Use: No - Past Surgical History Past Surgical History: Non-Contributing - Surgical History Hx Orthopedic Surgery: Yes Other/Comment: had sx to drain left elbow infection 10 yrs ago - Anesthesia Hx Anesthesia: Yes Hx Anesthesia Reactions: No Hx Malignant Hyperthermia: No - Suicidal Assessment Feels Threatened In Home Enviroment: No <SHIRA BLAIR - Last Filed: 07/28/17 00:44> Family/Social History - Physician Review Nursing Documentation Reviewed: Yes Family/Social History: No Known Family HX Smoking Status: Light Smoker < 10 Cigarettes Daily Hx Alcohol Use: Yes (holly cabello) Frequency of alcohol use: Daily Amount per day: 10 Hx Substance Use: No Hx Substance Use Treatment: No <JOHNNIESHIRA - Last Filed: 07/28/17 00:44> Allergies/Home Meds <JOHNNIESHIRA - Last Filed: 07/28/17 00:44> <Jeronimo Patel - Last Filed: 07/28/17 00:47> Allergies/Adverse Reactions: Allergies No Known Allergies Allergy (Verified 07/27/17 23:17) Home Medications: Home Meds Medication Instructions Recorded Confirmed Metoprolol Tartrate [Lopressor] 50 mg PO QAM 07/27/17 07/27/17 Venlafaxine [Effexor XR] 150 mg PO QAM 07/27/17 07/27/17 Review of Systems - Physician Review All systems were reviewed & negative as marked: Yes - Review of Systems Constitutional: Normal ENT: absent: Sore Throat, Sinus Congestion Respiratory: absent: SOB, Sputum, Wheezing Cardiovascular: absent: Chest Pain, Palpitations, Syncope Gastrointestinal: absent: Abdominal Pain Skin: absent: Rash Neurological: absent: Headache, Dizziness <JOHNNIESHIRA - Last Filed: 07/28/17 00:44> Physical Exam - Physical Exam Physical Exam Limitations: Intoxication Vital Signs Reviewed: Yes Temperature: Afebrile Blood Pressure: Normal Pulse: Tachycardic Respiratory Rate: Normal Appearance: Positive for: Other (intoxicated, sleepy) Pain Distress: None Mental Status: Positive for: Alert and Oriented X 3 - Systems Exam Head: Present: Atraumatic, Normocephalic Pupils: Present: PERRL Extroacular Muscles: Present: EOMI Conjunctiva: Present: Normal Mouth: Present: Moist Mucous Membranes Pharnyx: Present: Normal. No: ERYTHEMA Neck: No: JVD Respiratory/Chest: Present: Clear to Auscultation Cardiovascular: Present: Irregular Rhythm Abdomen: Present: Normal Bowel Sounds. No: Tenderness, Distention, Rebound Back: Present: Normal Inspection Upper Extremity: Present: Normal Inspection. No: Edema Lower Extremity: Present: Normal Inspection. No: CALF TENDERNESS Neurological: Present: GCS=15 Skin: Present: Warm, Dry Psychiatric: Present: Alert, Oriented x 3, Intoxicated <JOHNNIESHIRA - Last Filed: 07/28/17 00:44> Vital Signs Temp Pulse Resp BP Pulse Ox 07/28/17 00:11 105 H 18 141/95 H 98 07/27/17 23:06 97.4 F L 102 H 18 153/96 H 96 Medical Decision Making <SHIRA BLAIR - Last Filed: 07/28/17 00:44> <Jeronimo Patel - Last Filed: 07/28/17 00:47> ED Course and Treatment: 56 years old intoxicated male, presents for medical clearance: - Vital signs stable, BP 153/96. Pt asymtomatic currently. - Pt medically cleared - Disposition 07/28/17 00:17 (SHIRA BLAIR) Impression: Pt seen and evaluated with medical director. Pt, whose past medical history include alcohol abuse, hypertension, diabetes, hyperlipidemia, presented for medical clearance. As per [place] [employer], pt had low blood pressure earlier tonight. Pt admits to drinking alcohol tonight. Aware and agree with HPI, clinical findings, plan, and management. Plan: -- Reassess and disposition Pt asymptomatic in Emergency department, in no acute distress. Pt medically cleared for incarceration. (Jeronimo Patel) - PA / ANTHROPOLOGIST PHYSICAL / Resident Statement / has reviewed & agrees with the documentation as recorded. / has examined the patient and agrees with the treatment plan. <Jeronimo Patel - Last Filed: 07/28/17 00:47> Disposition/Present on Arrival - Present on Arrival Any Indicators Present on Arrival: No History of DVT/PE: No History of Uncontrolled Diabetes: No Urinary Catheter: No History of Decub. Ulcer: No History Surgical Site Infection Following: None - Disposition Have Diagnosis and Disposition been Completed?: Yes Disposition Time: 00:19 Patient Plan: Discharge <JOHNNIESHIRA - Last Filed: 07/28/17 00:44> <Jeronimo Patel - Last Filed: 07/28/17 00:47> - Disposition Diagnosis: Alcohol intoxication Disposition: RELEASED IN POLICE CUSTODY Patient Problems: Current Active Problems Problem Status Onset Alcohol intoxication Acute Condition: STABLE Discharge Instructions (ExitCare): Alcohol Intoxication (ED) Print Language: ANDORRAN Additional Instructions: Pt normotensive in the emergency room. Pt medically cleared for incarceration. Referrals: Mauricio Mensah MD [Primary Care Provider] - Follow up with primary Alcoholics Anonymous [Outside] - Follow up with primary Forms: [employer] ([place])
[2017-07-28 00:14] VITALS: BP 141/95; PULSE 105; O2SAT 98
== END 2017-07-28 00:54 ==
LOC: ED 22:41
DX: F10.129 Alcohol abuse with intoxication, unspecified (principal); E11.9 Type 2 diabetes mellitus without complications; E78.5 Hyperlipidemia, unspecified; I48.91 Unspecified atrial fibrillation; I50.9 Heart failure, unspecified; I10 Essential (primary) hypertension; F17.210 Nicotine dependence, cigarettes, uncomplicated

== ENCOUNTER 2017-07-28 02:46 | Emergency (ER) | payer OTHER ==
[2017-07-28 02:46] VITALS: PULSE 73
[2017-07-28 02:56] VITALS: BMI 31.6
[2017-07-28 03:02] VITALS: TEMP 98.2; O2SAT 96
--- NOTE | 2017-07-28 03:21 | ED PDOC ---
Arrival/HPI - General Historian: Patient EM Caveat: Intoxicated <SHIRA BLAIR - Last Filed: 07/28/17 06:21> <Jeronimo Patel - Last Filed: 07/28/17 07:05> - General Chief Complaint: Medical Clearance Time Seen by Provider: 07/28/17 02:49 - History of Present Illness Narrative History of Present Illness (Text): 55 y/o M with PMH HTN, afib, dyslipidemia, DM, alcohol abuse, CHF, and depression, brought in by police for mental/psych clearance for incarceration. This evening, pt was brought to the ER and was medically cleared. As per police , pt stated that he is "depressed" and police want the patient to be mentally cleared. Currently, pt is intoxicated and sleepy, unable to answer if he is depressed. (SHIRA BLAIR) Past Medical History - Provider Review Nursing Documentation Reviewed: Yes - Past History Past History: Unable to Obtain - Infectious Disease Hx of Infectious Diseases: None - Tetanus Immunization Tetanus Immunization: Unknown - Cardiac Hx Atrial Fibrillation: Yes Hx Hypertension: Yes Hx Peripheral Edema: Yes - Pulmonary Hx Respiratory Disorders: No Hx Tuberculosis: No - Neurological Hx Neurological Disorder: No HX Cerebrovascular Accident: No - HEENT Hx HEENT Disorder: No - Renal Hx Renal Disorder: No - Endocrine/Metabolic Hx Endocrine Disorders: No - Hematological/Oncological Hx Blood Disorders: No Hx Blood Transfusions: No Hx Cancer: No - Integumentary Hx Dermatological Disorder: No - Musculoskeletal/Rheumatological Hx Falls: Yes (05/16/17) - Gastrointestinal Hx Gastrointestinal Disorders: No - Genitourinary/Gynecological Hx Genitourinary Disorders: No Hx Reproductive Disorders: No - Psychiatric Hx Anxiety: Yes Hx Bipolar Disorder: Yes Hx Depression: Yes Hx Substance Use: No - Past Surgical History Past Surgical History: Non-Contributing - Surgical History Hx Orthopedic Surgery: Yes Other/Comment: had sx to drain left elbow infection 10 yrs ago - Anesthesia Hx Anesthesia: Yes Hx Anesthesia Reactions: No Hx Malignant Hyperthermia: No - Suicidal Assessment Feels Threatened In Home Enviroment: No <SHIRA BLAIR - Last Filed: 07/28/17 06:21> Family/Social History - Physician Review Nursing Documentation Reviewed: Yes Family/Social History: No Known Family HX Smoking Status: Light Smoker < 10 Cigarettes Daily Hx Alcohol Use: Yes (pint vodka) Amount per day: 10 Hx Substance Use: No Hx Substance Use Treatment: No <SHIRA BLAIR - Last Filed: 07/28/17 06:21> Allergies/Home Meds <SHIRA BLAIR - Last Filed: 07/28/17 06:21> <AmandaJeronimo - Last Filed: 07/28/17 07:05> Allergies/Adverse Reactions: Allergies No Known Allergies Allergy (Verified 07/27/17 23:17) Home Medications: Home Meds Medication Instructions Recorded Confirmed Metoprolol Tartrate [Lopressor] 50 mg PO QAM 07/27/17 07/28/17 Venlafaxine [Effexor XR] 150 mg PO QAM 07/27/17 07/28/17 Review of Systems - Review of Systems Systems not reviewed;Unavailable: Intoxicated <SHIRA BLAIR - Last Filed: 07/28/17 06:21> Physical Exam - Physical Exam Physical Exam Limitations: Intoxication Vital Signs Reviewed: Yes Temperature: Afebrile Blood Pressure: Normal Pulse: Regular Respiratory Rate: Normal Appearance: Positive for: Other (intoxicated, sleepy) Pain Distress: None Mental Status: Positive for: Alert and Oriented X 3 - Systems Exam Head: Present: Atraumatic, Normocephalic Pupils: Present: PERRL Extroacular Muscles: Present: EOMI Conjunctiva: Present: Normal Mouth: Present: Moist Mucous Membranes Neck: Present: Normal Range of Motion Respiratory/Chest: Present: Clear to Auscultation, Good Air Exchange. No: Accessory Muscle Use Cardiovascular: Present: Regular Rate and Rhythm, Normal S1, S2. No: Murmurs Abdomen: Present: Normal Bowel Sounds. No: Tenderness, Distention Back: No: CVA Tenderness Upper Extremity: Present: Normal Inspection, NORMAL PULSES. No: Edema Lower Extremity: Present: Normal Inspection, NORMAL PULSES. 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 - Reassess 07/28/17 05:48 Pt's ETOH level low. Called PES to evaluate patient. 07/28/17 05:54 (SHIRA BLAIR) Impression: Pt seen and evaluated with medical sales specialist. Pt, whose past medical history includes hypertension, atrial fibrillation, hyperlipidemia, diabetes, CHF, and depression, brought in under police custody for psychiatric clearance. As per police, patient stated he was depressed. Aware and agree with HPI, clinical findings, plan, and management. Plan: -- EKG -- CXR -- Labs, alcohol level -- Urine drug screen -- Reassess and disposition 07/28/17 07:00 Pt. seen and evaluated by PES.Cleared psychiatrically for discharge. (Jeronimo Patel) - Lab Interpretations Narrative Lab Interpretation (Text): 07/28/17 05:51 Urine tox positive for cocaine. ETOH level 11 (SHIRA BLAIR) Lab Results: 07/28/17 04:00 07/28/17 04:00 Lab Results 07/28/17 04:20: Urine Opiates Screen Negative, Urine Methadone Screen Negative, Ur Barbiturates Screen Negative, Ur Phencyclidine Scrn Negative, Ur Amphetamines Screen Negative, U Benzodiazepines Scrn Negative, U Oth Cocaine Metabols Positive H, U Cannabinoids Screen Negative 07/28/17 04:15: Alcohol, Quantitative 11 H 07/28/17 04:00: Salicylates < 1 L, Acetaminophen < 10.0 L 07/28/17 04:00: Sodium 139, Potassium 4.3, Chloride 105, Carbon Dioxide 21, Anion Gap 17, BUN 16, Creatinine 0.9, Est GFR ( Amer) > 60, Est GFR (Non- Af Amer) > 60, Random Glucose 110, Calcium 9.4, Total Bilirubin 0.8, AST 35, ALT 29, Alkaline Phosphatase 92, Total Protein 7.6, Albumin 4.5, Globulin 3.0, Albumin/Globulin Ratio 1.5 07/28/17 04:00: WBC 7.9, RBC 4.28, Hgb 13.2 L, Hct 38.3 L, MCV 89.5, MCH 30.8, MCHC 34.5, RDW 14.1, Plt Count 153, MPV 10.0, Gran % 70.0 H, Lymph % (Auto) 21.0 L, [place] % (Auto) 8.0 H, Eos % (Auto) 0.9 L, Baso % (Auto) 0.1, Gran # 5.50 , Lymph # 1.7, [place] # 0.6, Eos # 0.1, Baso # 0.01 - RAD Interpretation Narrative RAD Interpretations (Text): 07/28/17 05:53 Chest X-ray neg for acute changes. (SHIRA BLAIR) Radiology Orders: 07/28/17 03:26 CXR (PA/LAT) [CHEST TWO VIEWS (PA/LAT)] [RAD] Stat - EKG Interpretation EKG Interpretation (Text): 07/28/17 05:51 EKG HR 111, Sinus tachy with PVCs (SHIRA BLAIR) - PA / NETWORK PLANNER / Resident Statement / has reviewed & agrees with the documentation as recorded. / has examined the patient and agrees with the treatment plan. <Jeronimo Patel - Last Filed: 07/28/17 07:05> Disposition/Present on Arrival - Present on Arrival Any Indicators Present on Arrival: No History of DVT/PE: No History of Uncontrolled Diabetes: No Urinary Catheter: No History of Decub. Ulcer: No History Surgical Site Infection Following: None - Disposition Have Diagnosis and Disposition been Completed?: No Disposition Time: 07:00 Patient Plan: Discharge <SHIRA BLAIR - Last Filed: 07/28/17 06:21> - Present on Arrival Any Indicators Present on Arrival: No - Disposition Have Diagnosis and Disposition been Completed?: Yes <Jeronimo Patel - Last Filed: 07/28/17 07:05> - Disposition Diagnosis: Depression, Alcohol use disorder Disposition: RELEASED IN POLICE CUSTODY Condition: STABLE Discharge Instructions (ExitCare): Cocaine Abuse (ED), Abuse of Alcohol (ED), Depression (ED) Additional Instructions: Patient medically/psychiatrically cleared for discharge Referrals: Sully Mendiola MD [Primary Care Provider] - Follow up with primary Alcoholics Anonymous [Outside] - Follow up with primary [facility] [Outside] - Follow up with primary Forms: [employer] ([place])
[2017-07-28 04:13] LABS: BASO # 0.01 K/mm3 (0.0-2.0); BASO % 0.1 % (0.0-3.0); EOS # 0.1 (0.0-0.7); EOS % 0.9 % (1.5-5.0); GRAN # 5.5 (1.4-6.5); HEMATOCRIT 38.3 % (42.0-52.0); LYMPH # 1.7 (1.2-3.4); MEAN CELL VOLUME 89.5 fl (80.0-105.0); MEAN CORPUSCULAR HEMOGLOBIN 30.8 pg (25.0-35.0); MEAN CORPUSCULAR HGB CONC 34.5 g/dl (31.0-37.0); MONO # 0.6 (0.1-0.6); RED CELL DISTRIBUTION WIDTH 14.1 % (11.5-14.5); WHITE BLOOD COUNT 7.9 10^3/ul (4.5-11.0)
[2017-07-28 04:29] LABS: ALB/GLOB RATIO 1.5 (1.1-1.8); ALKALINE PHOSPHATASE 92 U/L (38-126); ALT/SGPT 29 U/L (7-56); AST/SGOT 35 U/L (17-59); BILIRUBIN,TOTAL 0.8 mg/dL (0.2-1.3); BLOOD UREA NITROGEN 16 mg/dL (7-21); CALCIUM 9.4 mg/dL (8.4-10.5); CARBON DIOXIDE 21 mmol/L (21-33); CHLORIDE 105 mmol/L (98-107); GFR AFRICAN-AMERICAN > 60; GLUCOSE,RANDOM 110 mg/dL (70-110); POTASSIUM 4.3 mmol/L (3.6-5.0); SODIUM 139 mmol/L (132-148); TOTAL PROTEIN 7.6 g/dL (5.8-8.3)
[2017-07-28 07:24] VITALS: BP 140/72; PULSE 85; RESP 18
--- NOTE | 2017-07-28 08:30 | RAD ---
HISTORY: clearance COMPARISON: 05/17/2017 TECHNIQUE: Chest PA and lateral FINDINGS: LUNGS: No active pulmonary disease. PLEURA: No significant pleural effusion identified. No pneumothorax apparent. CARDIOVASCULAR: Normal. OSSEOUS STRUCTURES: No significant abnormalities. VISUALIZED UPPER ABDOMEN: Normal. OTHER FINDINGS: None. IMPRESSION: No active disease.
--- NOTE | 2017-07-28 20:31 | CARD ---
APPROVED REPORT EKG Measurement Heart [id number] <Conclusion> Sinus tachycardia with frequent PVCs RSR' or QR pattern in V1 suggests right ventricular conduction delay Borderline ECG
== END 2017-07-28 07:18 ==
LOC: ED 02:46
DX: F10.10 Alcohol abuse, uncomplicated (principal); F32.9 Major depressive disorder, single episode, unspecified; E11.9 Type 2 diabetes mellitus without complications; E78.5 Hyperlipidemia, unspecified; F17.210 Nicotine dependence, cigarettes, uncomplicated; I48.91 Unspecified atrial fibrillation; I50.9 Heart failure, unspecified; I10 Essential (primary) hypertension

== ENCOUNTER 2017-07-31 13:35 | Emergency (ER) | payer OTHER ==
[2017-07-31 13:35] VITALS: PULSE 73; BMI 31.6
--- NOTE | 2017-07-31 14:29 | ED PDOC ---
Arrival/HPI - General Chief Complaint: Alcohol Ingestion Time Seen by Provider: 07/31/17 13:36 Historian: EMS, Police EM Caveat: Intoxicated - History of Present Illness Narrative History of Present Illness (Text): 07/31/17 14:27 A 56 year old male, whose past medical history includes hypertension, A- Fib, dyslipidemia, diabetes, alcohol abuse, CHF, and depression, presents to the emergency department for ETOH intoxication. As per [place] [employer] and EMS, the patient was found at his girlfriend's house. She called the [place] [employer] and they called EMS for the patient to be removed from her home and was brought to the emergency department. The HPI and ROS due to patients condition. Time/Duration: Prior to Arrival Symptom Onset: Sudden Symptom Course: Unchanged Context: Other (Girlfriend's House) Past Medical History - Provider Review Nursing Documentation Reviewed: Yes - Past History Past History: Unable to Obtain - Infectious Disease Hx of Infectious Diseases: None - Tetanus Immunization Tetanus Immunization: Unknown - Cardiac Hx Atrial Fibrillation: Yes Hx Hypertension: Yes Hx Peripheral Edema: Yes - Pulmonary Hx Respiratory Disorders: No Hx Tuberculosis: No - Neurological Hx Neurological Disorder: No HX Cerebrovascular Accident: No - HEENT Hx HEENT Disorder: No - Renal Hx Renal Disorder: No - Endocrine/Metabolic Hx Endocrine Disorders: No - Hematological/Oncological Hx Blood Disorders: No Hx Blood Transfusions: No Hx Cancer: No - Integumentary Hx Dermatological Disorder: No - Musculoskeletal/Rheumatological Hx Falls: Yes (05/16/17) - Gastrointestinal Hx Gastrointestinal Disorders: No - Genitourinary/Gynecological Hx Genitourinary Disorders: No Hx Reproductive Disorders: No - Psychiatric Hx Anxiety: Yes Hx Bipolar Disorder: Yes Hx Depression: Yes Hx Substance Use: No - Past Surgical History Past Surgical History: Non-Contributing - Surgical History Hx Orthopedic Surgery: Yes Other/Comment: had sx to drain left elbow infection 10 yrs ago - Anesthesia Hx Anesthesia: Yes Hx Anesthesia Reactions: No Hx Malignant Hyperthermia: No - Suicidal Assessment Feels Threatened In Home Enviroment: No Family/Social History - Physician Review Nursing Documentation Reviewed: Yes Family/Social History: No Known Family HX Smoking Status: Light Smoker < 10 Cigarettes Daily Hx Alcohol Use: Yes (pint vodka) Amount per day: 10 Hx Substance Use: No Hx Substance Use Treatment: No Allergies/Home Meds Allergies/Adverse Reactions: Allergies No Known Allergies Allergy (Verified 08/11/17 15:55) Review of Systems - Physician Review All systems were reviewed & negative as marked: Yes - Review of Systems Systems not reviewed;Unavailable: Intoxicated Physical Exam - Physical Exam Physical Exam Limitations: Intoxication Vital Signs Reviewed: Yes Vital Signs Temp Pulse Resp BP Pulse Ox 07/31/17 21:51 76 16 122/82 99 07/31/17 17:44 98 F 81 20 114/80 98 07/31/17 13:47 97.7 F 88 19 121/63 98 Temperature: Afebrile Blood Pressure: Normal Pulse: Regular Respiratory Rate: Normal Appearance: Positive for: Other (Intoxicated) Pain Distress: None Medical Decision Making ED Course and Treatment: 07/31/17 14:28 Impression: A 56 year old male brought into the emergency department for ETOH intoxication. Plan: -- Brain CT -- EKG -- Labs -- Reassess and disposition Prior Visits: Notes and results from previous visits were reviewed. On 07/28/2017 patient was brought in by police for mental/psych clearance for incarceration. Patient was released in police custody. 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 This represents a new finding compared to the prior CT scans including the most recent examination performed 05/16/2017. EKG: Ordered, reviewed, and independently interpreted the EKG. Rate : 88 BPM Rhythm : NSR Interpretation : QRS, RBBB, ST- normal, T- waves normal. - Lab Interpretations Lab Results: 07/31/17 15:00 07/31/17 15:00 Lab Results 07/31/17 15:00: Alcohol, Quantitative 260 H 07/31/17 15:00: Sodium 143, Potassium 4.5, Chloride 105, Carbon Dioxide 26, Anion Gap 17, BUN 15, Creatinine 1.0, Est GFR ( Amer) > 60, Est GFR (Non- Af Amer) > 60, Random Glucose 89, Calcium 8.7, Total Bilirubin 1.0, AST 39, ALT 26, Alkaline Phosphatase 75, Total Protein 7.7, Albumin 4.5, Globulin 3.2, Albumin/Globulin Ratio 1.4 07/31/17 15:00: WBC 8.3, RBC 4.43, Hgb 13.7 L, Hct 39.8 L, MCV 89.8, MCH 30.9, MCHC 34.4, RDW 13.6, Plt Count 162, MPV 10.2, Gran % 52.0, Lymph % (Auto) 39.8 H , [place] % (Auto) 5.8, Eos % (Auto) 2.2, Baso % (Auto) 0.2, Gran # 4.34, Lymph # 3.3, [place] # 0.5, Eos # 0.2, Baso # 0.02 I have reviewed the lab results: Yes - RAD Interpretation Radiology Orders: 07/31/17 14:20 Brain [HEAD W/O CONTRAST] [CT] Stat - EKG Interpretation Interpreted by ED Physician: Yes Type: 12 lead EKG - Medication Orders Current Medication Orders: Discontinued Medications Multivitamins/Vitamin C 10 ml/Thiamine HCl 100 mg/ Folic Acid 1 mg/ Sodium Chloride 1,011.2 mls @ 1,000 mls/hr IV .Q1H1M ONE Stop: 07/31/17 15:39 Last Admin: 07/31/17 17:41 Dose: 1,000 mls/hr eMAR Start Stop Document 07/31/17 17:41 MR (Rec: 07/31/17 17:42 MR [id number]) Intravenous Solution Start Date 07/31/17 Start Time 16:41 End Date 07/31/17 End time 17:41 Total Infusion Time 60 - Scribe Statement The provider has reviewed the documentation as recorded by the Josi An Provider Scribe Attestation: All medical record entries made by the Scribe were at my direction and personally dictated by me. I have reviewed the chart and agree that the record accurately reflects my personal performance of the history, physical exam, medical decision making, and the department course for this patient. I have also personally directed, reviewed, and agree with the discharge instructions and disposition. Disposition/Present on Arrival - Present on Arrival Any Indicators Present on Arrival: No History of DVT/PE: No History of Uncontrolled Diabetes: No Urinary Catheter: No History of Decub. Ulcer: No History Surgical Site Infection Following: None - Disposition Have Diagnosis and Disposition been Completed?: Yes Diagnosis: Alcohol abuse Disposition: HOME/ ROUTINE Disposition Time: 21:51 Condition: IMPROVED Discharge Instructions (ExitCare): Alcohol Intoxication (ED) Referrals: Sonny Welch [Medical Doctor] - Follow up with primary Forms: [employer] ([place])
[2017-07-31] MEDS ORDERED: Multivitamin (MVI) 10 ML, Thiamine 100 MG, Folic Acid 1 MG in Sodium Chloride 0.9% 1,00... IV ONE (14:39)
[2017-07-31 15:22] LABS: BASO # 0.02 K/mm3 (0.0-2.0); BASO % 0.2 % (0.0-3.0); EOS # 0.2 (0.0-0.7); EOS % 2.2 % (1.5-5.0); GRAN # 4.34 (1.4-6.5); HEMATOCRIT 39.8 % (42.0-52.0); LYMPH # 3.3 (1.2-3.4); LYMPH % 39.8 % (22.0-35.0); MEAN CELL VOLUME 89.8 fl (80.0-105.0); MEAN CORPUSCULAR HEMOGLOBIN 30.9 pg (25.0-35.0); MEAN CORPUSCULAR HGB CONC 34.4 g/dl (31.0-37.0); MEAN PLATELET VOLUME 10.2 fl (7.0-11.0); MONO # 0.5 (0.1-0.6); MONO % 5.8 % (1.0-6.0); RED CELL DISTRIBUTION WIDTH 13.6 % (11.5-14.5); WHITE BLOOD COUNT 8.3 10^3/ul (4.5-11.0)
--- NOTE | 2017-07-31 15:24 | CT ---
PROCEDURE: CT HEAD WITHOUT CONTRAST. HISTORY: mental status change COMPARISON: 03/04/2017, 05/16/[address] scans of the brain. TECHNIQUE: Axial computed tomography images were obtained through the head/brain without intravenous contrast. Radiation dose: Total exam DLP = 823.45 mGy-cm. This CT exam was performed using one or more of the following dose reduction techniques: Automated exposure control, adjustment of the mA and/or kV according to patient size, and/or use of iterative reconstruction technique. FINDINGS: HEMORRHAGE: No intracranial hemorrhage. BRAIN: Small focus of diminished attenuation deep left parietal lobe adjacent to the posterior posterior limb of the internal capsule and posteroanterior horn of the left lateral ventricle likely a small nonhemorrhagic infarcts. The finding was not seen previously. Please refer to axial series 2, image 37. VENTRICLES: Unremarkable. No hydrocephalus. CALVARIUM: Unremarkable. PARANASAL SINUSES: Unremarkable as visualized. No significant inflammatory changes. MASTOID AIR CELLS: Unremarkable as visualized. No inflammatory changes. OTHER FINDINGS: None. 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 This represents a new finding compared to the prior CT scans including the most recent examination performed 05/16/2017.
[2017-07-31 15:35] LABS: ALB/GLOB RATIO 1.4 (1.1-1.8); ALKALINE PHOSPHATASE 75 U/L (38-126); ALT/SGPT 26 U/L (7-56); AST/SGOT 39 U/L (17-59); BLOOD UREA NITROGEN 15 mg/dL (7-21); CALCIUM 8.7 mg/dL (8.4-10.5); CARBON DIOXIDE 26 mmol/L (21-33); CHLORIDE 105 mmol/L (98-107); GFR AFRICAN-AMERICAN > 60; GLUCOSE,RANDOM 89 mg/dL (70-110); POTASSIUM 4.5 mmol/L (3.6-5.0); SODIUM 143 mmol/L (132-148); TOTAL PROTEIN 7.7 g/dL (5.8-8.3)
[2017-07-31 17:44] VITALS: TEMP 98
[2017-07-31 21:51] VITALS: BP 122/82; PULSE 76; RESP 16; O2SAT 99
--- NOTE | 2017-08-01 22:22 | CARD ---
APPROVED REPORT EKG Measurement Heart [id number] <Conclusion> Sinus rhythm with occasional premature ventricular complexes Incomplete right bundle branch block Prolonged QT Abnormal ECG
== END 2017-07-31 21:51 | disposition home or self-care (01) ==
LOC: ED 13:35
DX: F10.10 Alcohol abuse, uncomplicated (principal); Y90.8 Blood alcohol level of 240 mg/100 ml or more; I10 Essential (primary) hypertension; I48.91 Unspecified atrial fibrillation; E11.9 Type 2 diabetes mellitus without complications; F17.210 Nicotine dependence, cigarettes, uncomplicated
CPT/HCPCS: 70450; 80053; 80320; 85025; 93005; 96360; 99283; J3411; J7040

== ENCOUNTER 2017-08-04 16:27 | Inpatient (IN) | payer OTHER ==
[2017-08-04 16:27] VITALS: PULSE 73
[2017-08-04] MEDS ORDERED: Multivitamin (MVI) 10 ML, Thiamine 100 MG, Folic Acid 1 MG in Dextrose 5% In Water 1,00... IV ONE (16:43)
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
[2017-08-04 17:16] LABS: BASO # 0.02 K/mm3 (0.0-2.0); BASO % 0.2 % (0.0-3.0); EOS % 0.5 % (1.5-5.0); GRAN # 4.96 (1.4-6.5); HEMATOCRIT 38.3 % (42.0-52.0); LYMPH # 2.6 (1.2-3.4); LYMPH % 31.3 % (22.0-35.0); MEAN CELL VOLUME 89.9 fl (80.0-105.0); MEAN CORPUSCULAR HEMOGLOBIN 31.2 pg (25.0-35.0); MEAN CORPUSCULAR HGB CONC 34.7 g/dl (31.0-37.0); MEAN PLATELET VOLUME 9.8 fl (7.0-11.0); MONO # 0.7 (0.1-0.6); RED CELL DISTRIBUTION WIDTH 13.9 % (11.5-14.5); WHITE BLOOD COUNT 8.3 10^3/ul (4.5-11.0)
[2017-08-04 17:23] LABS: ALB/GLOB RATIO 1.3 (1.1-1.8); ALKALINE PHOSPHATASE 135 U/L (38-126); ALT/SGPT 50 U/L (7-56); AST/SGOT 53 U/L (17-59); BILIRUBIN,TOTAL 0.8 mg/dL (0.2-1.3); BLOOD UREA NITROGEN 14 mg/dL (7-21); CARBON DIOXIDE 29 mmol/L (21-33); CHLORIDE 103 mmol/L (98-107); GFR AFRICAN-AMERICAN > 60; GLUCOSE,RANDOM 118 mg/dL (70-110); MAGNESIUM 2.1 mg/dL (1.7-2.2); POTASSIUM 3.9 mmol/L (3.6-5.0); SODIUM 143 mmol/L (132-148); TOTAL PROTEIN 7.8 g/dL (5.8-8.3)
[2017-08-04] MEDS ORDERED: Sodium Chloride 0.9% 1,000 ML IV STA (17:26)
[2017-08-04 17:36] LABS: INR 0.96 (0.93-1.08); PARTIAL THROMBOPLASTIN TIME 28.2 Seconds (25.1-36.5)
[2017-08-04 20:06] LABS: TROPONIN I < 0.01 ng/mL
[2017-08-04 20:42] LABS: VENOUS BLOOD GAS BASE EXCESS 5.5 mmol/L (0.0-2.0)
[2017-08-04] MEDS ORDERED: Multivitamin (MVI) 10 ML, Thiamine 100 MG, Folic Acid 1 MG in Sodium Chloride 0.9% 1,00... IV ONE (21:22)
[2017-08-04] MEDS ORDERED: Bacitracin 500 Units/gm Oint Foilpak UD TOP ONE (21:25)
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
[2017-08-05 02:13] VITALS: BMI 31.1
[2017-08-05] MEDS: Insulin Lispro (humaLOG) LOW Coverage SC SCH ×5 (02:16→22:18)
[2017-08-05] MEDS ORDERED: diltiaZEM IVPB 100mg in NS 100 ML IV PRN (04:30)
[2017-08-05] MEDS: Pantoprazole 40 mg EC Tab PO SCH (06:07)
[2017-08-05 06:29] LABS: CHOLESTEROL 145 mg/dL (130-200)
[2017-08-05 07:01] LABS: TROPONIN I < 0.01 ng/mL
[2017-08-05 08:04] LABS: BASO # 0.01 K/mm3 (0.0-2.0); BASO % 0.2 % (0.0-3.0); EOS # 0.1 (0.0-0.7); EOS % 1.3 % (1.5-5.0); GRAN # 2.3 (1.4-6.5); LYMPH # 1.8 (1.2-3.4); LYMPH % 38.9 % (22.0-35.0); MEAN CELL VOLUME 89.8 fl (80.0-105.0); MEAN CORPUSCULAR HEMOGLOBIN 30.3 pg (25.0-35.0); MEAN CORPUSCULAR HGB CONC 33.8 g/dl (31.0-37.0); MONO # 0.5 (0.1-0.6); MONO % 10.6 % (1.0-6.0); RED CELL DISTRIBUTION WIDTH 13.8 % (11.5-14.5); WHITE BLOOD COUNT 4.7 10^3/ul (4.5-11.0)
[2017-08-05 08:12] LABS: ALB/GLOB RATIO 1.3 (1.1-1.8); ALKALINE PHOSPHATASE 92 U/L (38-126); ALT/SGPT 34 U/L (7-56); AST/SGOT 45 U/L (17-59); BILIRUBIN,TOTAL 0.8 mg/dL (0.2-1.3); BLOOD UREA NITROGEN 12 mg/dL (7-21); CALCIUM 8.5 mg/dL (8.4-10.5); CARBON DIOXIDE 26 mmol/L (21-33); CHLORIDE 106 mmol/L (98-107); GFR AFRICAN-AMERICAN > 60; GLUCOSE,RANDOM 109 mg/dL (70-110); PHOSPHOROUS 3.2 mg/dL (2.5-4.5); POTASSIUM 4.2 mmol/L (3.6-5.0); SODIUM 142 mmol/L (132-148); TOTAL PROTEIN 6.5 g/dL (5.8-8.3)
[2017-08-05] MEDS: Enoxaparin 120 mg Syringe SC SCH ×2 (08:19→22:24)
[2017-08-05] MEDS: Metoprolol Succinate 25 mg XL Tab PO SCH ×2 (09:41→17:35)
--- NOTE | 2017-08-05 12:31 | CARD ---
APPROVED REPORT EKG Measurement Heart [id number] <Conclusion> Atrial fibrillation with rapid ventricular response Aberrantly Conducted Beat.
--- NOTE | 2017-08-05 12:58 | CON ---
DATE: 08/05/2017 CONSULTATION INDICATIONS: Atrial fibrillation, rapid ventricular response. HISTORY OF PRESENT ILLNESS: This is a 56-year-old alcoholic, admitted with alcohol intoxication yesterday, found to be in atrial fibrillation. He has a long history of these problems including alcohol related cardiomyopathy. He is admitted to Telemetry. He states that he wishes to go into alcohol detox program. He is in atrial fibrillation with rapid ventricular response, on IV Cardizem drip. There is no chest pain, shortness of breath, orthopnea, PND, syncope, presyncope, lightheadedness, dizziness, vertigo, edema, claudication, fever, chills, cough, sputum production, hemoptysis, abdominal pain, nausea, vomiting, diarrhea, constipation, or melena. MEDICATIONS: Include IV Cardizem, Ativan, Effexor, insulin coverage, Librium, Neurontin, Protonix, IV fluids, metoprolol. ALLERGIES: THERE ARE NO KNOWN MEDICATION ALLERGIES. FAMILY HISTORY: Positive for heart disease. SOCIAL HISTORY: He is homeless. He is a smoker. He drinks daily. He is not employed. REVIEW OF SYSTEMS: Ten-point review of systems is otherwise unremarkable except as noted above. PHYSICAL EXAMINATION: GENERAL: He is a well-developed male, lying in bed on telemetry, in no acute distress. VITAL SIGNS: Heart rate in the 130s and 140s, AFib; afebrile; blood pressure 132/76; respirations 18 to 20; O2 sat 96% to 98%. HEENT: Reveals no neck vein distention, thyromegaly, or carotid bruits. Mucous membranes are moist. Conjunctivae pink. NECK: Supple. LUNGS: Lung krause are clear. HEART: Examination of the heart reveals a rapid irregular rhythm. Soft systolic murmur along the left sternal border. ABDOMEN: Soft. Bowel sounds are present. No mass, organomegaly, tenderness, rebound, guarding, CVA tenderness, or palpable abdominal aortic aneurysm. EXTREMITIES: Revealed no cyanosis, clubbing, or edema. NEUROLOGIC: He is awake, alert. PSYCHIATRIC: Appears depressed. SKIN: Warm and dry. No rash or cellulitis. LABORATORY AND IMAGING: Chest x-ray is not interpreted yet. It was a portable study on 08/04/2017. I do not see evidence of congestive heart failure, infiltrate, or effusion. EKG shows atrial fibrillation with rapid ventricular response. White count is normal, platelet count normal, hemoglobin 13.3, hematocrit 38.3. PT, PTT, INR unremarkable. Blood gases are noted. Electrolytes, BUN, creatinine, blood sugar, LFTs, magnesium are all unremarkable. Three troponins are negative. BNP is 88.3. Total cholesterol 145, triglycerides 295, LDL 49, HDL 67. TSH is normal. IMPRESSION: Ez Hutchinson is a 56-year-old male, alcoholic, who wishes to undergo alcohol detox. He is in atrial fibrillation with rapid ventricular response, on Cardizem drip, on telemetry unit. PLAN: I will review his old records. It is apparent that he has a cardiomyopathy and chronic atrial fibrillation. He has been in the hospital several times over the years. I will review these records. In the meantime, he is getting IV Cardizem, I will increase it to 10 mg/hour. He is getting metoprolol, Protonix, gabapentin, Librium, Ativan, and Effexor. I will add Lovenox to protect him from embolic event while he is in the hospital. Outpatient anticoagulation might be difficult and risky because of his chronic alcoholism. We will monitor inputs and outputs, daily labs. We will keep a watch out for delirium tremens. He is on seizure precautions. I will follow along with you. I will make additional recommendations based on his clinical course. He will have a psychiatric evaluation and referral for alcohol detoxification as appropriate. Jimbo Cheung MD TAMMY
--- NOTE | 2017-08-05 16:05 | CARD ---
APPROVED REPORT EKG Measurement Heart [id number] <Conclusion> Atrial fibrillation with rapid ventricular response Abnormal ECG
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
[2017-08-05] MEDS: diltiaZEM IVPB 100mg in NS 100 ML IV PRN (17:00)
--- NOTE | 2017-08-06 02:10 | CON ---
IDENTIFYING INFORMATION: The patient is a 56-year-old white male with a history of alcohol abuse. HISTORY OF PRESENT ILLNESS: This is a patient who also has paroxysmal atrial fibrillation, congestive heart failure, hypertension, diabetes mellitus, dyslipidemia, had come to the emergency room after having bought the quarter of vodka and was feeling depressed. He stated that he started drinking earlier on the day of his admission. He had been for alcohol detoxification the night previously, but it signed out because he wanted to continue drinking. Indicated he has been drinking and he is depressed because he is homeless, his dog and his girlfriend hates him. He last was detoxed this past April. He drinks approximately half or quarter vodka daily and has done so for the past 40 years. The patient is presently being treated on an Ativan IV push along with Librium, standing order (25 mg q.6 hours) along with Neurontin. He is presently sedate and not readily arousable. He is undergoing detoxification and his progress will be monitored, the more so he is more amenable to more verbal interaction. He has mildly a behavioral problem at the moment. He is presently also wanting Effexor 37.5 mg daily. Ousmane Orozco MD/ PhD
[2017-08-06] MEDS: Pantoprazole 40 mg EC Tab PO SCH (05:32)
[2017-08-06] MEDS: diltiaZEM IVPB 100mg in NS 100 ML IV PRN (05:33)
[2017-08-06 07:09] LABS: BASO # 0.01 K/mm3 (0.0-2.0); BASO % 0.2 % (0.0-3.0); EOS # 0.1 (0.0-0.7); EOS % 2.6 % (1.5-5.0); GRAN # 3.53 (1.4-6.5); HEMATOCRIT 36.5 % (42.0-52.0); LYMPH # 1.3 (1.2-3.4); LYMPH % 23.2 % (22.0-35.0); MEAN CELL VOLUME 88.8 fl (80.0-105.0); MEAN CORPUSCULAR HEMOGLOBIN 30.9 pg (25.0-35.0); MEAN CORPUSCULAR HGB CONC 34.8 g/dl (31.0-37.0); MEAN PLATELET VOLUME 10.5 fl (7.0-11.0); MONO # 0.5 (0.1-0.6); RED CELL DISTRIBUTION WIDTH 13.6 % (11.5-14.5); WHITE BLOOD COUNT 5.4 10^3/ul (4.5-11.0)
[2017-08-06] MEDS: Enoxaparin 120 mg Syringe SC SCH ×2 (07:09→21:48)
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
[2017-08-06 07:23] LABS: ALB/GLOB RATIO 1.3 (1.1-1.8); ALKALINE PHOSPHATASE 121 U/L (38-126); ALT/SGPT 41 U/L (7-56); AST/SGOT 43 U/L (17-59); BILIRUBIN,TOTAL 1.7 mg/dL (0.2-1.3); BLOOD UREA NITROGEN 10 mg/dL (7-21); CALCIUM 9.3 mg/dL (8.4-10.5); CARBON DIOXIDE 26 mmol/L (21-33); CHLORIDE 102 mmol/L (98-107); GFR AFRICAN-AMERICAN > 60; GLUCOSE,RANDOM 128 mg/dL (70-110); MAGNESIUM 1.8 mg/dL (1.7-2.2); PHOSPHOROUS 2.3 mg/dL (2.5-4.5); POTASSIUM 4.2 mmol/L (3.6-5.0); SODIUM 134 mmol/L (132-148); TOTAL PROTEIN 7.2 g/dL (5.8-8.3)
[2017-08-06] MEDS: Insulin Lispro (humaLOG) LOW Coverage SC SCH ×4 (08:00→21:41)
[2017-08-06] MEDS: Metoprolol Succinate 25 mg XL Tab PO SCH ×2 (09:08→18:14)
[2017-08-06] MEDS ORDERED: diltiaZEM IVPB 100mg in NS 100 ML IV PRN (10:00)
[2017-08-06] MEDS: Potassium & Sodium Phosphate PO SCH ×2 (13:58→18:16)
--- NOTE | 2017-08-06 15:39 | CP.PCM.PN ---
<Torito Pimentel - Last Filed: 08/06/17 15:35> Subjective - Date & Time of Evaluation Date of Evaluation: 08/06/17 Time of Evaluation: 15:35 - Subjective Subjective: Medicine Progress Note: Pt seen and examined at bedside. Pt denied any acute overnight events. Pt states that he still feels anxious. Pt HR in 100's overnight, but monitor shows NSR. Pt denied CP, SOB, nausea, vomiting, diarrhea, constipation, abdominal pain , CRANDALL, or dizziness. Objective - Vital Signs/Intake and Output Vital Signs (last 24 hours): Temp Pulse Resp BP Pulse Ox 98.1 F 94 H 18 155/86 H 97 08/06/17 12:00 08/06/17 14:00 08/06/17 12:00 08/06/17 12:00 08/06/17 06:00 Intake and Output: 08/06/17 08/06/17 06:59 18:59 Intake Total 1420 240 Output Total 900 Balance 1420 -660 - Medications Medications: Current Medications Chlordiazepoxide (Librium) 25 mg PO Q6 [facility] PRN Reason: Protocol Last Admin: 08/06/17 11:33 Dose: 25 mg Enoxaparin Sodium (Lovenox) 120 mg SC Q12H [facility] PRN Reason: Protocol Last Admin: 08/06/17 07:09 Dose: 120 mg Folic Acid (Folic Acid) 1 mg PO DAILY [facility] Last Admin: 08/06/17 11:33 Dose: 1 mg Gabapentin (Neurontin) 300 mg PO BID [facility] PRN Reason: Protocol Last Admin: 08/06/17 09:07 Dose: 300 mg diltiaZEM IVPB 100mg in NS (Cardizem 100mg In Ns) 100 mls @ 5 mls/hr IV .Q20H PRN; Protocol; 5 MG/HR PRN Reason: TITRATE PER MD ORDER Insulin Human Lispro (Humalog Low) 0 units SC ACHS [facility] PRN Reason: Protocol Last Admin: 08/06/17 12:20 Dose: Not Given Lorazepam (Ativan) 2 mg IVP Q3 PRN; Protocol PRN Reason: Agitation Last Admin: 08/06/17 13:58 Dose: 2 mg Metoprolol Succinate (Toprol Xl) 50 mg PO BID [facility] Last Admin: 08/06/17 09:08 Dose: 50 mg Multivitamins (Thera Tab) 1 tab PO 0800 [facility] Mupirocin (Bactroban Ointment) 5 gm TOP BID [facility] Last Admin: 08/06/17 09:07 Dose: 5 gm Pantoprazole Sodium (Protonix Ec Tab) 40 mg PO 0600 [facility] Last Admin: 08/06/17 05:32 Dose: 40 mg Potassium Phos/Sodium Phos (Neutra-Phos) 1 pkt PO TID [facility] Stop: 08/07/17 10:01 Last Admin: 08/06/17 13:58 Dose: 1 pkt Thiamine HCl (Vitamin B1 Tab) 100 mg PO DAILY [facility] Last Admin: 08/06/17 11:33 Dose: 100 mg Venlafaxine HCl (Effexor) 37.5 mg PO DAILY [facility] Last Admin: 08/06/17 09:07 Dose: 37.5 mg - Labs Labs: 08/06/17 06:00 08/06/17 06:00 PT 10.4 SECONDS (9.4-12.5) 08/04/17 16:50 INR 0.96 (0.93-1.08) 08/04/17 16:50 APTT 28.2 Seconds (25.1-36.5) 08/04/17 16:50 - Constitutional Appears: No Acute Distress - Head Exam Head Exam: ATRAUMATIC, NORMOCEPHALIC - Eye Exam Eye Exam: EOMI, Normal appearance, PERRL Pupil Exam: NORMAL ACCOMODATION - ENT Exam ENT Exam: Mucous Membranes Moist - Neck Exam Neck Exam: Full ROM. absent: Lymphadenopathy, Tenderness, Thyromegaly - Respiratory Exam Respiratory Exam: Clear to Ausculation Bilateral. absent: Accessory Muscle Use , Decreased Breath Sounds, Rales, Rhonchi, Wheezes, Respiratory Distress - Cardiovascular Exam Cardiovascular Exam: RRR, +S1, +S2. absent: Clicks, Diastolic murmur, Gallop, Rubs, Murmur - GI/Abdominal Exam GI & Abdominal Exam: Soft. absent: Distended, Rigid, Tenderness, Hernia, Rebound - Extremities Exam Extremities Exam: Full ROM Additional comments: b/l UE tremors - Back Exam Back Exam: NORMAL INSPECTION - Neurological Exam Neurological Exam: Alert, Awake, Oriented x3 - Psychiatric Exam Psychiatric exam: Anxious, Normal Affect - Skin Skin Exam: Diaphoretic, Intact, Normal Color, Warm Assessment and Plan - Assessment and Plan (Free Text) Assessment: 56 year old male with past medical history of ETOH abuse, paroxysmal afib (not on AC), CHF, HTN, DM, dyslipidemia presents to the ED for excessive alcohol intake and feeling depressed. Patient was found to be in Rapid Afib, which has resolved. Patient transitioned off of cardizem to metoprolol. Plan: 1. Afib with RVR -EKG showed atrial fibrillation at 147 BPM on admission, however tachycardia, NSR on monitor overnight -Likely 2/2 cardiomyopathy, may have component of holiday heart as patient admits increased amount of drinking (~2x his baseline intake) over last 2-3 days -Hemodynamically stable -Trops negative x3 -Cardio (Dr. Cheung) consulted, appreciate all recs Cardizem held Increased Metoprolol to 50 BID Lovenox 120 mg SC q12h 2. Alcohol intoxication -afebrile -Librium and Ativan maintained at same dose as patient is symptomatic and still requiring Librium increased to 25mg Q6H [facility] Ativan 2mg Q3H prn agitation/withdrawal -Thiamine, Folate, MV PO -Monitor electrolytes -Seizure precautions, fall precautions -CIWA protocol -SW consult ordered 3. Burn on dorsal aspect of L foot -mupricon -Wound care consulted 4. History of Diabetes Mellitus with peripheral neuropathy -HgbA1C 5.7 -Low dose ISS -Accuchecks -Gabapentin 300mg BID 5. History of depression -Continue Effexor 37.5 -Psych consulted, Dr. Orozco, follow recs 6. History Hypertension -Hemodynamically stable -Metoprolol 50mg BID, hold if HR<60, or BP<110 -Continue to monitor 7. History of systolic CHF; Dilated cardiomyopathy -alcohol induced -Last echo 04/2016 showed EF 31%, LV borderline dilated -Continue to monitor 8. History of dyslipidemia -elevated triglycerides and cholesterol, LDL and HDL within acceptable ranges -given hx of alcohol abuse, would be wary of using statins, already at increased risk for rhabdomyolysis and hepatic insult due to drinking -heart-healthy low fat diet Dispo: Telemetry, off drip for AFib with RVR, CIWA protocol for alcohol withdrawal, pending Psych eval and input FEN: Heart-healthy low fat Access: Peripheral IVs Consults: Cardio, Psych Ppx: Protonix for GI, SCDs/Lovenox for DVT Patient seen, reviewed, and discussed with attending, Dr. Dinero. <Farncis Dinero - Last Filed: 08/06/17 16:07> Objective - Vital Signs/Intake and Output Vital Signs (last 24 hours): Temp Pulse Resp BP Pulse Ox 98.1 F 94 H 18 155/86 H 97 08/06/17 12:00 08/06/17 14:00 08/06/17 12:00 08/06/17 12:00 08/06/17 06:00 Intake and Output: 08/06/17 08/06/17 06:59 18:59 Intake Total 1420 240 Output Total 900 Balance 1420 -660 - Medications Medications: Current Medications Chlordiazepoxide (Librium) 25 mg PO Q6 [facility] PRN Reason: Protocol Last Admin: 08/06/17 11:33 Dose: 25 mg Enoxaparin Sodium (Lovenox) 120 mg SC Q12H [facility] PRN Reason: Protocol Last Admin: 08/06/17 07:09 Dose: 120 mg Folic Acid (Folic Acid) 1 mg PO DAILY [facility] Last Admin: 08/06/17 11:33 Dose: 1 mg Gabapentin (Neurontin) 300 mg PO BID [facility] PRN Reason: Protocol Last Admin: 08/06/17 09:07 Dose: 300 mg diltiaZEM IVPB 100mg in NS (Cardizem 100mg In Ns) 100 mls @ 5 mls/hr IV .Q20H PRN; Protocol; 5 MG/HR PRN Reason: TITRATE PER MD ORDER Insulin Human Lispro (Humalog Low) 0 units SC ACHS [facility] PRN Reason: Protocol Last Admin: 08/06/17 12:20 Dose: Not Given Lorazepam (Ativan) 2 mg IVP Q3 PRN; Protocol PRN Reason: Agitation Last Admin: 08/06/17 13:58 Dose: 2 mg Metoprolol Succinate (Toprol Xl) 50 mg PO BID [facility] Last Admin: 08/06/17 09:08 Dose: 50 mg Multivitamins (Thera Tab) 1 tab PO 0800 [facility] Mupirocin (Bactroban Ointment) 5 gm TOP BID [facility] Last Admin: 08/06/17 09:07 Dose: 5 gm Pantoprazole Sodium (Protonix Ec Tab) 40 mg PO 0600 [facility] Last Admin: 08/06/17 05:32 Dose: 40 mg Potassium Phos/Sodium Phos (Neutra-Phos) 1 pkt PO TID [facility] Stop: 08/07/17 10:01 Last Admin: 08/06/17 13:58 Dose: 1 pkt Thiamine HCl (Vitamin B1 Tab) 100 mg PO DAILY [facility] Last Admin: 08/06/17 11:33 Dose: 100 mg Venlafaxine HCl (Effexor) 37.5 mg PO DAILY [facility] Last Admin: 08/06/17 09:07 Dose: 37.5 mg - Labs Labs: 08/06/17 06:00 08/06/17 06:00 PT 10.4 SECONDS (9.4-12.5) 08/04/17 16:50 INR 0.96 (0.93-1.08) 08/04/17 16:50 APTT 28.2 Seconds (25.1-36.5) 08/04/17 16:50 Attending/Attestation - Attestation I have personally seen and examined this patient.: Yes I have fully participated in the care of the patient.: Yes I have reviewed all pertinent clinical information, including history, physical exam and plan: Yes Notes (Text): 08/06/17 16:04 56 year old male with past medical history of alcohol withdrawal, paroxysmal afib, cardiomyopathy, depression and hypertension who presented with alcohol intoxication. He was admitted for Afib with RVR and alcohol withdrawal. Continue with librium and ativan prn for withdrawal symptoms. Continue with multivitamin, folic acid and thiamine. He was counselled on alcohol cessation. Psychiatry and social worker clinical evaluation were appreciated. Cardizem drip has been discontinued as HR was better controlled. Toprol Xl was increased by cardiology. He is not on anticoagulation at home due to chronic ETOH, high risk of falls and noncompliance. Francis Dinero MD Hospitalist.
[2017-08-07] MEDS: Pantoprazole 40 mg EC Tab PO SCH (05:35)
[2017-08-07 06:24] LABS: BASO # 0.01 K/mm3 (0.0-2.0); BASO % 0.2 % (0.0-3.0); EOS # 0.1 (0.0-0.7); EOS % 2.5 % (1.5-5.0); GRAN # 3.09 (1.4-6.5); GRAN % 59.1 % (50.0-68.0); HEMATOCRIT 36.5 % (42.0-52.0); LYMPH # 1.6 (1.2-3.4); LYMPH % 30.5 % (22.0-35.0); MEAN CELL VOLUME 89.5 fl (80.0-105.0); MEAN CORPUSCULAR HEMOGLOBIN 30.4 pg (25.0-35.0); MEAN PLATELET VOLUME 10.2 fl (7.0-11.0); MONO # 0.4 (0.1-0.6); MONO % 7.7 % (1.0-6.0); RED CELL DISTRIBUTION WIDTH 13.6 % (11.5-14.5); WHITE BLOOD COUNT 5.2 10^3/ul (4.5-11.0)
[2017-08-07 06:41] LABS: ALB/GLOB RATIO 1.2 (1.1-1.8); ALKALINE PHOSPHATASE 113 U/L (38-126); ALT/SGPT 45 U/L (7-56); AST/SGOT 42 U/L (17-59); BLOOD UREA NITROGEN 11 mg/dL (7-21); CALCIUM 8.8 mg/dL (8.4-10.5); CARBON DIOXIDE 26 mmol/L (21-33); CHLORIDE 102 mmol/L (98-107); GFR AFRICAN-AMERICAN > 60; GLUCOSE,RANDOM 103 mg/dL (70-110); MAGNESIUM 1.9 mg/dL (1.7-2.2); SODIUM 136 mmol/L (132-148); TOTAL PROTEIN 7.3 g/dL (5.8-8.3)
[2017-08-07] MEDS: Insulin Lispro (humaLOG) LOW Coverage SC SCH ×4 (08:07→21:33)
[2017-08-07] MEDS: Multivitamin Therapeutic Tab PO SCH (09:28)
[2017-08-07] MEDS: Metoprolol Succinate 25 mg XL Tab PO SCH ×2 (09:28→18:12)
[2017-08-07] MEDS: Potassium & Sodium Phosphate PO SCH (09:29)
--- NOTE | 2017-08-07 11:43 | CP.PCM.PN ---
<Torito Pimentel - Last Filed: 08/07/17 11:27> Subjective - Date & Time of Evaluation Date of Evaluation: 08/07/17 Time of Evaluation: 11:27 - Subjective Subjective: Medicine Progress Note: Pt seen and examined at bedside. Pt denied any acute overnight events. Pt states that he's feeling better overall. Pt states that he would like to shower , however it was explained to him that with his current presentation and medications that he's on it would be unsafe. Pt denied CP, SOB, nausea, vomiting , abdominal pain, fever, chills, CRANDALL, fatigue, dizziness. Objective - Vital Signs/Intake and Output Vital Signs (last 24 hours): Temp Pulse Resp BP Pulse Ox 98.0 F 102 H 19 125/88 98 08/07/17 06:00 08/07/17 09:28 08/07/17 06:00 08/07/17 09:28 08/07/17 06:00 - Medications Medications: Current Medications Apixaban (Eliquis) 5 mg PO BID [facility] PRN Reason: Protocol Last Admin: 08/07/17 09:29 Dose: 5 mg Chlordiazepoxide (Librium) 25 mg PO Q8 [facility] PRN Reason: Protocol Folic Acid (Folic Acid) 1 mg PO DAILY [facility] Last Admin: 08/07/17 09:28 Dose: 1 mg Gabapentin (Neurontin) 300 mg PO BID [facility] PRN Reason: Protocol Last Admin: 08/07/17 09:28 Dose: 300 mg diltiaZEM IVPB 100mg in NS (Cardizem 100mg In Ns) 100 mls @ 5 mls/hr IV .Q20H PRN; Protocol; 5 MG/HR PRN Reason: TITRATE PER MD ORDER Insulin Human Lispro (Humalog Low) 0 units SC ACHS [facility] PRN Reason: Protocol Last Admin: 08/07/17 08:07 Dose: Not Given Lorazepam (Ativan) 2 mg IVP Q6 [facility] PRN Reason: Protocol Metoprolol Succinate (Toprol Xl) 50 mg PO BID [facility] Last Admin: 08/07/17 09:28 Dose: 50 mg Multivitamins (Thera Tab) 1 tab PO 0800 [facility] Last Admin: 08/07/17 09:28 Dose: 1 tab Mupirocin (Bactroban Ointment) 5 gm TOP BID [facility] Last Admin: 08/07/17 09:29 Dose: 5 gm Pantoprazole Sodium (Protonix Ec Tab) 40 mg PO 0600 [facility] Last Admin: 08/07/17 05:35 Dose: 40 mg Thiamine HCl (Vitamin B1 Tab) 100 mg PO DAILY [facility] Last Admin: 08/07/17 09:28 Dose: 100 mg Venlafaxine HCl (Effexor) 37.5 mg PO DAILY [facility] Last Admin: 08/07/17 09:29 Dose: 37.5 mg - Labs Labs: 08/07/17 05:30 08/07/17 05:30 PT 10.4 SECONDS (9.4-12.5) 08/04/17 16:50 INR 0.96 (0.93-1.08) 08/04/17 16:50 APTT 28.2 Seconds (25.1-36.5) 08/04/17 16:50 - Constitutional Appears: No Acute Distress - Head Exam Head Exam: ATRAUMATIC, NORMOCEPHALIC - Eye Exam Eye Exam: EOMI, Normal appearance, PERRL - ENT Exam ENT Exam: Mucous Membranes Moist - Neck Exam Neck Exam: Full ROM. absent: Lymphadenopathy, Tenderness, Thyromegaly - Respiratory Exam Respiratory Exam: Clear to Ausculation Bilateral. absent: Accessory Muscle Use , Rales, Rhonchi, Wheezes, Respiratory Distress - Cardiovascular Exam Cardiovascular Exam: Tachycardia, REGULAR RHYTHM, +S1, +S2. absent: Diastolic murmur, Gallop, Rubs, Murmur - GI/Abdominal Exam GI & Abdominal Exam: Soft. absent: Distended, Guarding, Tenderness, Mass, Rebound - Extremities Exam Additional comments: b/l tremor UE - Back Exam Back Exam: NORMAL INSPECTION - Neurological Exam Neurological Exam: Alert, Awake, Oriented x3 - Psychiatric Exam Psychiatric exam: Normal Affect, Normal Mood - Skin Skin Exam: Dry, Intact, Normal Color, Warm Assessment and Plan - Assessment and Plan (Free Text) Assessment: 56 year old male with past medical history of ETOH abuse, paroxysmal afib (not on AC), CHF, HTN, DM, dyslipidemia presents to the ED for excessive alcohol intake and feeling depressed. Patient was found to be in Rapid Afib, which has resolved. Patient transitioned off of cardizem to metoprolol. Plan: 1. Afib with RVR -EKG showed atrial fibrillation at 147 BPM on admission, however tachycardia, NSR on monitor overnight -Likely 2/2 cardiomyopathy, may have component of holiday heart as patient admits increased amount of drinking (~2x his baseline intake) over last 2-3 days -Hemodynamically stable -Trops negative x3 -Cardio (Dr. Cheung) consulted, appreciate all recs Cardizem held Metoprolol 50 mg PO BID Eliquis 5 mg PO BID 2. Alcohol intoxication -Librium and Ativan tapered Librium 25mg Q8H PATRICK Ativan 2mg Q6H prn agitation/withdrawal -Thiamine, Folate, MV PO -Monitor electrolytes -Seizure precautions, fall precautions -CIWA protocol -SW consult ordered 3. Burn on dorsal aspect of L foot -mupricon -Wound care consulted 4. History of Diabetes Mellitus with peripheral neuropathy -HgbA1C 5.7 -Low dose ISS -Accuchecks -Gabapentin 300mg BID 5. History of depression -Continue Effexor 37.5 -Psych consulted, Dr. Orozco, follow recs 6. History Hypertension -Hemodynamically stable -Metoprolol 50mg BID, hold if HR<60, or BP<110 -Continue to monitor 7. History of systolic CHF; Dilated cardiomyopathy -alcohol induced -Last echo 04/2016 showed EF 31%, LV borderline dilated -Continue to monitor 8. History of dyslipidemia -elevated triglycerides and cholesterol, LDL and HDL within acceptable ranges -given hx of alcohol abuse, would be wary of using statins, already at increased risk for rhabdomyolysis and hepatic insult due to drinking -heart-healthy low fat diet Dispo: Telemetry, off drip for AFib with RVR, CIWA protocol for alcohol withdrawal, pending Psych eval and input FEN: Heart-healthy low fat Access: Peripheral IVs Consults: Cardio, Psych Ppx: Protonix for GI, SCDs/Eliquis for DVT Patient seen, reviewed, and discussed with attending, Dr. Dinero. <Francis Dinero - Last Filed: 08/07/17 12:44> Objective - Vital Signs/Intake and Output Vital Signs (last 24 hours): Temp Pulse Resp BP Pulse Ox 97.5 F L 94 H 20 143/81 98 08/07/17 11:43 08/07/17 11:43 08/07/17 11:43 08/07/17 11:43 08/07/17 06:00 - Medications Medications: Current Medications Apixaban (Eliquis) 5 mg PO BID [facility] PRN Reason: Protocol Last Admin: 08/07/17 09:29 Dose: 5 mg Chlordiazepoxide (Librium) 25 mg PO Q8 [facility] PRN Reason: Protocol Folic Acid (Folic Acid) 1 mg PO DAILY [facility] Last Admin: 08/07/17 09:28 Dose: 1 mg Gabapentin (Neurontin) 300 mg PO BID [facility] PRN Reason: Protocol Last Admin: 08/07/17 09:28 Dose: 300 mg diltiaZEM IVPB 100mg in NS (Cardizem 100mg In Ns) 100 mls @ 5 mls/hr IV .Q20H PRN; Protocol; 5 MG/HR PRN Reason: TITRATE PER MD ORDER Insulin Human Lispro (Humalog Low) 0 units SC ACHS [facility] PRN Reason: Protocol Last Admin: 08/07/17 12:13 Dose: 1 units Lorazepam (Ativan) 2 mg IVP Q6 [facility] PRN Reason: Protocol Last Admin: 08/07/17 12:14 Dose: 2 mg Metoprolol Succinate (Toprol Xl) 50 mg PO BID [facility] Last Admin: 08/07/17 09:28 Dose: 50 mg Multivitamins (Thera Tab) 1 tab PO 0800 [facility] Last Admin: 08/07/17 09:28 Dose: 1 tab Mupirocin (Bactroban Ointment) 5 gm TOP BID [facility] Last Admin: 08/07/17 09:29 Dose: 5 gm Pantoprazole Sodium (Protonix Ec Tab) 40 mg PO 0600 [facility] Last Admin: 08/07/17 05:35 Dose: 40 mg Thiamine HCl (Vitamin B1 Tab) 100 mg PO DAILY [facility] Last Admin: 08/07/17 09:28 Dose: 100 mg Venlafaxine HCl (Effexor) 37.5 mg PO DAILY [facility] Last Admin: 08/07/17 09:29 Dose: 37.5 mg - Labs Labs: 08/07/17 05:30 08/07/17 05:30 PT 10.4 SECONDS (9.4-12.5) 08/04/17 16:50 INR 0.96 (0.93-1.08) 08/04/17 16:50 APTT 28.2 Seconds (25.1-36.5) 08/04/17 16:50 Attending/Attestation - Attestation I have personally seen and examined this patient.: Yes I have fully participated in the care of the patient.: Yes I have reviewed all pertinent clinical information, including history, physical exam and plan: Yes Notes (Text): 08/07/17 12:43 56 year old male with past medical history of alcohol withdrawal, paroxysmal afib, cardiomyopathy, depression and hypertension who presented with alcohol intoxication. He was admitted for Afib with RVR and alcohol withdrawal. Continue with librium and ativan prn for withdrawal symptoms. Will begin to taper as tolerated. He is also on multivitamin, folic acid and thiamine. He was counselled on alcohol cessation. Psychiatry and socially responsible investment adviser evaluation were appreciated. He is being followed by cardiology. He is on toprol xl and also started on eliquis by cardiology today. Francis Dinero MD Hospitalist.
--- NOTE | 2017-08-07 15:25 | CON ---
DATE: HISTORY OF PRESENT ILLNESS: The patient is a 56-year-old white male with a history of depression and alcohol dependency who is being seen by Psychiatry because of depression. I reviewed Dr. Orozco's note from 2 days ago and the patient is at bedside today. The patient reports continued depression. He is tolerating his medications. He is also anxious specifically about uncertainly of the future. The patient wants to enter rehab. He is not suicidal. He is not homicidal. As mentioned, he is not hallucinating. Delusions are not listed, he has been in fair control in the unit. He continues to report multiple stressors including his homelessness, of his dog, and relationship issues. Thought process is coherent. Insight and judgment are considered to be fair at this time. Vital signs were reviewed. Labs were also reviewed by this provider. Relevant psychiatric medications include Effexor 37.5 mg p.o. daily. IMPRESSION: Major depression, severe alcohol use disorder, alcohol withdrawal, and substance-induced mood disorder. RECOMMENDATIONS: 1. Should continue handling the patient's alcohol withdrawal and taper benzos as comfort level and vitals tolerate. 2. We will increase Effexor to 75 mg daily. The patient reports prior dose with 150 mg. 3. The patient is open to psychiatric hospitalization once he was medically cleared. No bed is available at this time. Psychiatry will continue to follow up and assess needs for transfer. Carlos Enrique Hebert MD
[2017-08-08] MEDS: Pantoprazole 40 mg EC Tab PO SCH (05:51)
[2017-08-08 06:20] VITALS: O2SAT 98
--- NOTE | 2017-08-08 07:28 | CP.PCM.PN ---
Subjective - Date & Time of Evaluation Date of Evaluation: 08/07/17 Time of Evaluation: 07:00 - Subjective Subjective: Stable on 2R. No CP or SOB. Alert. V/S noted. RSR. No AF. PE: Lungs: clear Cor.: S1S2 Abd.: soft Ext.: no edema Neuro.: alert I/O= 240/900 recorded Labs noted. BC x2 NG at 48 hrs. ECG 08/05: AF with RVR Objective - Vital Signs/Intake and Output Vital Signs (last 24 hours): Temp Pulse Resp BP Pulse Ox 98.0 F 78 19 138/82 98 08/07/17 06:00 08/07/17 06:00 08/07/17 06:00 08/07/17 06:00 08/07/17 06:00 - Medications Medications: Current Medications Chlordiazepoxide (Librium) 25 mg PO Q6 [facility] PRN Reason: Protocol Last Admin: 08/07/17 05:35 Dose: 25 mg Enoxaparin Sodium (Lovenox) 120 mg SC Q12H [facility] PRN Reason: Protocol Last Admin: 08/06/17 21:48 Dose: 120 mg Folic Acid (Folic Acid) 1 mg PO DAILY [facility] Last Admin: 08/06/17 11:33 Dose: 1 mg Gabapentin (Neurontin) 300 mg PO BID [facility] PRN Reason: Protocol Last Admin: 08/06/17 18:55 Dose: 300 mg diltiaZEM IVPB 100mg in NS (Cardizem 100mg In Ns) 100 mls @ 5 mls/hr IV .Q20H PRN; Protocol; 5 MG/HR PRN Reason: TITRATE PER MD ORDER Insulin Human Lispro (Humalog Low) 0 units SC ACHS [facility] PRN Reason: Protocol Last Admin: 08/06/17 21:41 Dose: Not Given Lorazepam (Ativan) 2 mg IVP Q3 PRN; Protocol PRN Reason: Agitation Last Admin: 08/06/17 21:47 Dose: 2 mg Metoprolol Succinate (Toprol Xl) 50 mg PO BID [facility] Last Admin: 08/06/17 18:14 Dose: 50 mg Multivitamins (Thera Tab) 1 tab PO 0800 [facility] Mupirocin (Bactroban Ointment) 5 gm TOP BID [facility] Last Admin: 08/06/17 18:46 Dose: 5 gm Pantoprazole Sodium (Protonix Ec Tab) 40 mg PO 0600 [facility] Last Admin: 08/07/17 05:35 Dose: 40 mg Potassium Phos/Sodium Phos (Neutra-Phos) 1 pkt PO TID [facility] Stop: 08/07/17 10:01 Last Admin: 08/06/17 18:16 Dose: 1 pkt Thiamine HCl (Vitamin B1 Tab) 100 mg PO DAILY [facility] Last Admin: 08/06/17 11:33 Dose: 100 mg Venlafaxine HCl (Effexor) 37.5 mg PO DAILY [facility] Last Admin: 08/06/17 09:07 Dose: 37.5 mg - Labs Labs: 08/07/17 05:30 08/07/17 05:30 PT 10.4 SECONDS (9.4-12.5) 08/04/17 16:50 INR 0.96 (0.93-1.08) 08/04/17 16:50 APTT 28.2 Seconds (25.1-36.5) 08/04/17 16:50 Assessment and Plan - Assessment and Plan (Free Text) Assessment: Acute ETOH intoxication, Chronic Ethanolism Alcohol Withdrawl AF Burn/ulcer left foot CCM, ETOH related HBP Diabetes Depression HLD Smoker Plan: Continue metoprolol 50 BID. As per psychiatry and medical team Switch Lovenox to Eliquis 5 BID while in hospital/rehab. Risk assessment for out -pt A/C at time of discharge home. OOB as jonn. Sedation Watch for DT's. Seizure precautions. Cardiac f/u for CCM upon d/c home.
[2017-08-08 07:34] LABS: BASO # 0.01 K/mm3 (0.0-2.0); BASO % 0.2 % (0.0-3.0); EOS # 0.1 (0.0-0.7); EOS % 1.6 % (1.5-5.0); GRAN # 3.5 (1.4-6.5); GRAN % 63.3 % (50.0-68.0); LYMPH # 1.4 (1.2-3.4); MEAN CELL VOLUME 90.2 fl (80.0-105.0); MEAN CORPUSCULAR HEMOGLOBIN 30.7 pg (25.0-35.0); MEAN CORPUSCULAR HGB CONC 34.1 g/dl (31.0-37.0); MEAN PLATELET VOLUME 9.3 fl (7.0-11.0); MONO # 0.5 (0.1-0.6); MONO % 8.9 % (1.0-6.0); WHITE BLOOD COUNT 5.5 10^3/ul (4.5-11.0)
[2017-08-08 07:55] LABS: ALB/GLOB RATIO 1.2 (1.1-1.8); ALKALINE PHOSPHATASE 99 U/L (38-126); ALT/SGPT 51 U/L (7-56); AST/SGOT 54 U/L (17-59); BILIRUBIN,TOTAL 0.8 mg/dL (0.2-1.3); BLOOD UREA NITROGEN 13 mg/dL (7-21); CALCIUM 9.4 mg/dL (8.4-10.5); CARBON DIOXIDE 29 mmol/L (21-33); CHLORIDE 102 mmol/L (98-107); GFR AFRICAN-AMERICAN > 60; GLUCOSE,RANDOM 116 mg/dL (70-110); MAGNESIUM 1.8 mg/dL (1.7-2.2); PHOSPHOROUS 2.8 mg/dL (2.5-4.5); POTASSIUM 4.5 mmol/L (3.6-5.0); SODIUM 138 mmol/L (132-148); TOTAL PROTEIN 7.3 g/dL (5.8-8.3)
--- NOTE | 2017-08-08 08:06 | CP.PCM.PN ---
Subjective - Date & Time of Evaluation Date of Evaluation: 08/08/17 Time of Evaluation: 07:00 - Subjective Subjective: Stable on 2R. No CP or SOB. Alert. He wants in-patient detox. V/S noted. RSR. No AF. PE: Lungs: clear Cor.: S1S2 Abd.: soft Ext.: no edema Neuro.: alert I/O= 880/[address] = 88.000 BC x2 NG at 3 days ECG 08/05: AF with RVR Objective - Vital Signs/Intake and Output Vital Signs (last 24 hours): Temp Pulse Resp BP Pulse Ox 98.1 F 82 19 144/89 98 08/08/17 06:00 08/08/17 06:00 08/08/17 06:00 08/08/17 06:00 08/08/17 06:00 Intake and Output: 08/08/17 08/08/17 06:59 18:59 Intake Total 280 Output Total 800 Balance -520 - Medications Medications: Current Medications Apixaban (Eliquis) 5 mg PO BID PATRICK PRN Reason: Protocol Last Admin: 08/07/17 18:12 Dose: 5 mg Chlordiazepoxide (Librium) 25 mg PO Q8 PATRICK PRN Reason: Protocol Last Admin: 08/08/17 05:51 Dose: 25 mg Folic Acid (Folic Acid) 1 mg PO DAILY [facility] Last Admin: 08/07/17 09:28 Dose: 1 mg Gabapentin (Neurontin) 300 mg PO BID PATRICK PRN Reason: Protocol Last Admin: 08/07/17 18:12 Dose: 300 mg diltiaZEM IVPB 100mg in NS (Cardizem 100mg In Ns) 100 mls @ 5 mls/hr IV .Q20H PRN; Protocol; 5 MG/HR PRN Reason: TITRATE PER MD ORDER Insulin Human Lispro (Humalog Low) 0 units SC ACHS PATRICK PRN Reason: Protocol Last Admin: 08/07/17 21:33 Dose: Not Given Lorazepam (Ativan) 2 mg IVP Q6 PATRICK PRN Reason: Protocol Last Admin: 08/08/17 05:54 Dose: 2 mg Metoprolol Succinate (Toprol Xl) 50 mg PO BID [facility] Last Admin: 08/07/17 18:12 Dose: 50 mg Multivitamins (Thera Tab) 1 tab PO 0800 PATRICK Last Admin: 08/07/17 09:28 Dose: 1 tab Mupirocin (Bactroban Ointment) 5 gm TOP BID [facility] Last Admin: 08/07/17 18:11 Dose: 5 gm Pantoprazole Sodium (Protonix Ec Tab) 40 mg PO 0600 [facility] Last Admin: 08/08/17 05:51 Dose: 40 mg Thiamine HCl (Vitamin B1 Tab) 100 mg PO DAILY [facility] Last Admin: 08/07/17 09:28 Dose: 100 mg Venlafaxine HCl (Effexor) 37.5 mg PO DAILY [facility] Last Admin: 08/07/17 09:29 Dose: 37.5 mg - Labs Labs: 08/08/17 07:32 08/08/17 07:32 PT 10.4 SECONDS (9.4-12.5) 08/04/17 16:50 INR 0.96 (0.93-1.08) 08/04/17 16:50 APTT 28.2 Seconds (25.1-36.5) 08/04/17 16:50 Assessment and Plan - Assessment and Plan (Free Text) Assessment: Acute ETOH intoxication, Chronic Ethanolism Alcohol Withdrawl AF Burn/ulcer left foot CCM, ETOH related HBP Diabetes Depression HLD Smoker Plan: Continue metoprolol 50 BID. As per psychiatry and medical team Switch Lovenox to Eliquis 5 BID while in hospital/rehab. Risk assessment for out -pt A/C at time of discharge home. OOB as jonn. Sedation as needed EchO: Update LV fx. Cardiac f/u for CCM upon d/c home.
[2017-08-08] MEDS: Insulin Lispro (humaLOG) LOW Coverage SC SCH ×2 (10:30→12:05)
[2017-08-08] MEDS: Multivitamin Therapeutic Tab PO SCH (10:48)
[2017-08-08] MEDS: Metoprolol Succinate 25 mg XL Tab PO SCH (10:51)
--- NOTE | 2017-08-08 11:57 | CP.PCM.PN ---
<Flo Serra - Last Filed: 08/08/17 19:26> Subjective - Date & Time of Evaluation Date of Evaluation: 08/08/17 Time of Evaluation: 08:10 - Subjective Subjective: IM Progress Note for Hospitalist Service Patient seen and examined at bedside. No acute complaints overnight. Still feels slightly tremulous, but feeling better overall. States less depressed, but still depressed overall and wishes to follow up with Psych. Informed Psych would be around later in the day to re-evaluated and determine if he meets criteria for psych floor admission. Patient was informed that he had been started on a blood thinner due to his Atrial Fibrilation, but was told that unless he remains off of alcohol, he would not be discharged with the blood thinner as the risk of bleeding in alcoholism and non-compliance outweighed any benefit afforded by the medication. Patient was agreeable to remaining off of alcohol, stating he wanted to quit for good, and once again expressed his hope to find a detox bed somewhere after being discharged. Objective - Vital Signs/Intake and Output Vital Signs (last 24 hours): Temp Pulse Resp BP Pulse Ox 98.1 F 82 19 144/89 98 08/08/17 06:00 08/08/17 06:00 08/08/17 06:00 08/08/17 06:00 08/08/17 06:00 Intake and Output: 08/08/17 08/08/17 06:59 18:59 Intake Total 280 Output Total 800 Balance -520 - Medications Medications: Current Medications Apixaban (Eliquis) 5 mg PO BID PATRICK PRN Reason: Protocol Last Admin: 08/08/17 10:48 Dose: 5 mg Chlordiazepoxide (Librium) 25 mg PO Q8 PATRICK PRN Reason: Protocol Last Admin: 08/08/17 05:51 Dose: 25 mg Folic Acid (Folic Acid) 1 mg PO DAILY [facility] Last Admin: 08/08/17 10:48 Dose: 1 mg Gabapentin (Neurontin) 300 mg PO BID [facility] PRN Reason: Protocol Last Admin: 08/08/17 10:53 Dose: 300 mg diltiaZEM IVPB 100mg in NS (Cardizem 100mg In Ns) 100 mls @ 5 mls/hr IV .Q20H PRN; Protocol; 5 MG/HR PRN Reason: TITRATE PER MD ORDER Insulin Human Lispro (Humalog Low) 0 units SC ACHS [facility] PRN Reason: Protocol Last Admin: 08/08/17 10:30 Dose: Not Given Lorazepam (Ativan) 2 mg IVP Q6 [facility] PRN Reason: Protocol Last Admin: 08/08/17 05:54 Dose: 2 mg Metoprolol Succinate (Toprol Xl) 50 mg PO BID [facility] Last Admin: 08/08/17 10:51 Dose: 50 mg Multivitamins (Thera Tab) 1 tab PO 0800 [facility] Last Admin: 08/08/17 10:48 Dose: 1 tab Mupirocin (Bactroban Ointment) 5 gm TOP BID [facility] Last Admin: 08/08/17 10:50 Dose: 5 gm Pantoprazole Sodium (Protonix Ec Tab) 40 mg PO 0600 [facility] Last Admin: 08/08/17 05:51 Dose: 40 mg Thiamine HCl (Vitamin B1 Tab) 100 mg PO DAILY [facility] Last Admin: 08/08/17 10:48 Dose: 100 mg Venlafaxine HCl (Effexor) 37.5 mg PO DAILY [facility] Last Admin: 08/08/17 10:48 Dose: 37.5 mg - Labs Labs: 08/08/17 07:32 08/08/17 07:32 PT 10.4 SECONDS (9.4-12.5) 08/04/17 16:50 INR 0.96 (0.93-1.08) 08/04/17 16:50 APTT 28.2 Seconds (25.1-36.5) 08/04/17 16:50 - Additional Findings Additional findings: - Constitutional Appears: Non-toxic, No Acute Distress, Chronically Ill - Head Exam Head Exam: ATRAUMATIC, NORMAL INSPECTION, NORMOCEPHALIC - Eye Exam Eye Exam: EOMI, Normal appearance. absent: Conjunctival injection, Scleral icterus Pupil Exam: absent: Irregular, Unequal - ENT Exam ENT Exam: Mucous Membranes Moist - Neck Exam Neck Exam: Full ROM, Normal Inspection - Respiratory Exam Respiratory Exam: Decreased Breath Sounds (mildly decreased breath sounds in all krause), Clear to Ausculation Bilateral, NORMAL BREATHING PATTERN. absent: Rales, Rhonchi, Wheezes - Cardiovascular Exam Cardiovascular Exam: Irregular Rhythm, +S1, +S2. absent: Bradycardia, REGULAR RHYTHM, JVD, RRR, +S4 - GI/Abdominal Exam GI & Abdominal Exam: Soft, Normal Bowel Sounds. absent: Distended, Firm, Rigid , Tenderness, Diminished Bowel Sounds, Hyperactive Bowel Sounds, Hypoactive Bowel Sounds - Extremities Exam Extremities Exam: Tenderness (at site of left foot dorsum wound). absent: Calf Tenderness, Joint Swelling, Pedal Edema wound at left foot dorsum, irregular circular wound, granular appearing, poorly healed, surrounding erythema 1-2 distant from wound borders, now bandaged - Neurological Exam Neurological Exam: Alert, Awake, Oriented x3 Neuro motor strength exam: Left Upper Extremity: 4, Right Upper Extremity: 4, Left Lower Extremity: 4, Right Lower Extremity: 4 Able to move all extremities independently, motor and sensory grossly intact and equal bilaterally no overt tremor in bilateral UE when holding up parallel to the ground, no intention tremor noted - Psychiatric Exam Psychiatric exam: Flat Affect - Skin Skin Exam: Dry, Intact (except for wound described in extremities section), Normal Color, Warm Assessment and Plan - Assessment and Plan (Free Text) Assessment: 56 year old male with past medical history of ETOH abuse, paroxysmal afib (not on AC), CHF, HTN, DM, dyslipidemia presents to the ED for excessive alcohol intake and feeling depressed. Rapid AFib has resolved, depression improved but patient still requesting psych eval and admission. Pending re-evaluation by Psych service. Plan: 1. Afib with RVR - resolved -EKG showed atrial fibrillation at 147 BPM on admission; borderline sinus tachy with HR high 90's to low 100's on tele monitor -Likely 2/2 cardiomyopathy, may have component of holiday heart as patient admits increased amount of drinking (~2x his baseline intake) over last 2-3 days prior to admission -Hemodynamically stable -Trops negative x3 -Cardio (Dr. Cheung) consulted, appreciate all recs; Cardizem held, Metoprolol 50 mg PO BID, Eliquis 5 mg PO BID -Patient informed if he is non-compliant with medications or if he is going to resume drinking, he will not be discharged with the Eliquis, as bleeding risks outweigh any benefit in that scenario, patient re-iterates that he wants to stop using alcohol completely 2. Alcohol intoxication -Librium and Ativan tapered, Librium 25mg Q8H PATRICK, decreased Ativan 2mg IVP Q6H PATRICK to 1mg PATRICK and 1mg PO PRN (both Q6H), will attempt to further wean librium next -Thiamine, Folate, MV PO -Monitor electrolytes -Seizure precautions, fall precautions -CIWA protocol -SW consult ordered 3. Burn on dorsal aspect of L foot -mupricon -Wound care consulted 4. History of Diabetes Mellitus with peripheral neuropathy -HgbA1C 5.7 -Low dose ISS -Accuchecks -Gabapentin 300mg BID 5. History of depression -Continue Effexor 37.5 -Psych consulted, Dr. Orozco, follow recs -Pending re-evaluation for possible psych admission 6. History Hypertension -Hemodynamically stable -Metoprolol 50mg BID, hold if HR<60, or BP<110 -Continue to monitor 7. History of systolic CHF; Dilated cardiomyopathy -alcohol induced -Last echo 04/2016 showed EF 31%, LV borderline dilated -Continue to monitor 8. History of dyslipidemia -elevated triglycerides and cholesterol, LDL and HDL within acceptable ranges -given hx of alcohol abuse, would be wary of using statins, already at increased risk for rhabdomyolysis and hepatic insult due to drinking -heart-healthy low fat diet Dispo: Telemetry, on PO rate control medications now that RVR is resolved, [facility] protocol for alcohol withdrawal, pending Psych eval and input FEN: Heart-healthy low fat Access: Peripheral IVs Consults: Cardio, Psych Ppx: Protonix for GI, SCDs/Eliquis for DVT Patient seen, reviewed, and discussed with attending, Dr. Ochoa. <Marjorie Ochoa - Last Filed: 08/09/17 13:58> Objective - Vital Signs/Intake and Output Vital Signs (last 24 hours): Temp Pulse Resp BP Pulse Ox 97.3 F L 93 H 21 127/84 98 08/08/17 12:00 08/08/17 14:00 08/08/17 12:00 08/08/17 12:00 08/08/17 06:00 - Labs Labs: 08/08/17 07:32 08/08/17 07:32 PT 10.4 SECONDS (9.4-12.5) 08/04/17 16:50 INR 0.96 (0.93-1.08) 08/04/17 16:50 APTT 28.2 Seconds (25.1-36.5) 08/04/17 16:50 Attending/Attestation - Attestation I have personally seen and examined this patient.: Yes I have fully participated in the care of the patient.: Yes I have reviewed all pertinent clinical information, including history, physical exam and plan: Yes Notes (Text): 08/09/17 13:52 Patient was seen and examined with durable medical equipment technician. Patient is feeling better.Alcohol withdrawals are improved. Patient is ambulatory, there is no tremor, he is alert,awake and oriented. AF , rate is controlled.The issue of anticoagulation was discussed in detail with patient.The risk of stroke was discussed.Risk and benefit was discussed in detail.Patient was advised not to drink alcohol while he is on anticoagulation.Patient has promised that he is not going to drink alcohol.He was advised that anticoagulation will not be safe for him if he would start drinking again.As patient has promised that he would not drink and want to go on anticoagulation, will continue Apixiban. Management plan was discussed in detail with patient Education was provided.
[2017-08-08 12:08] VITALS: BP 127/84; PULSE 93; RESP 21; TEMP 97.3
--- NOTE | 2017-08-08 16:12 | CP.PCM.PCO ---
Physician Communication Note - Physician Communication Note Physician Communication Note: pt will be f/u tomorrow
--- NOTE | 2017-08-09 08:47 | CP.PCM.PCO ---
Physician Communication Note - Physician Communication Note Physician Communication Note: pt was d/c
--- NOTE | 2017-08-09 08:47 | PN ---
DATE: 08/08/2017 SUBJECTIVE: The patient is a 56-year-old, who is depressed right now with a history of alcohol abuse. PHYSICAL EXAMINATION: GENERAL: Patient is alert, oriented. His mood and affect have improved significantly, but always still feels somewhat depressed. He is not however homicidal or suicidal. He and his family are requesting hospital stay so that he can stay here until a rehab facility becomes available to him if they are concern that he will have an alcohol relapse. Unfortunately, the patient's level of acuity did not meet standards of continued inpatient stay. I have discussed the case with Social Work. Ousmane Orozco MD/ PhD
--- NOTE | 2017-08-09 08:56 | PN ---
DATE: 08/08/2017 Addendum The patient is also homeless. I am concerned that the patient is seeking a more comfortable with domicile than a [facility]. Ousmane Orozco MD/ PhD
--- NOTE | 2017-08-09 09:30 | CARD ---
APPROVED REPORT EXAM: Two-dimensional and M-mode echocardiogram with Doppler and color Doppler. Other Information Quality : FairRhythm : INDICATION Cardiomyopathy , PAF, ETOH 2D DIMENSIONS Left Atrium (2D)3.9 (1.6-4.0cm)IVSd1.1 (0.7-1.1cm) LVDd5.3 (3.9-5.9cm)PWd1.2 (0.7-1.1cm) LVDs4.0 (2.5-4.0cm)FS (%) 25.8 % LVEF (%)50.0 (>50%) M-Mode DIMENSIONS Aortic Root3.10 (2.2-3.7cm)Aortic Cusp Exc.2.30 (1.5-2.0cm) Aortic Valve AoV Peak Hhweeiwd538.0cm/s Mitral Valve E/A ratio0.0 TDI E/Lateral E'0.0E/Medial E'0.0 Tricuspid Valve TR Peak [id number]/sRAP [id number] Peak Gr.8mmHg [id number] LEFT VENTRICLE The left ventricle is normal size. There is normal left ventricular wall thickness. The left ventricular function is normal. The left ventricular ejection fraction is low normal (- 50%) There is normal LV segmental wall motion (on a limited study). RIGHT VENTRICLE The right ventricle is normal size. ATRIA The left atrium size is normal. The right atrium size is normal. The interatrial septum is intact with no evidence for an atrial septal defect. AORTIC VALVE The aortic valve is mildly calcified. MITRAL VALVE The mitral valve is normal in structure. TRICUSPID VALVE The tricuspid valve is normal in structure. There is trace tricuspid regurgitation. PULMONIC VALVE The pulmonic valve is not well visualized. There is trace pulmonic valvular regurgitation. GREAT VESSELS The aortic root is normal in size. PERICARDIAL EFFUSION There is no pericardial effusion. <Conclusion> The left ventricle is normal size. There is normal left ventricular wall thickness. The left ventricular function is normal. The left ventricular ejection fraction is low normal (- 50%) There is normal LV segmental wall motion (on a limited study).
--- NOTE | 2017-08-09 17:30 | CP.PCM.DIS ---
Provider - Provider Date of Admission: 08/05/17 16:50 Attending physician: Francis Dinero MD Primary care physician: Sully Mendiola MD Consults: Psych: Ernesto Cardio: Jonatan Time Spent in preparation of Discharge (in minutes): 35 Diagnosis - Discharge Diagnosis (1) Alcohol dependence Status: Chronic Priority: Medium (2) Alcohol withdrawal Status: Resolved Priority: High (3) MDD (major depressive disorder) Status: Chronic Priority: High (4) Rapid atrial fibrillation Status: Resolved Priority: High Hospital Course - Lab Results Lab Results: Most Recent Lab Values WBC 5.5 10^3/ul (4.5-11.0) 08/08/17 07:32 RBC 4.10 10^6/uL (3.5-6.1) 08/08/17 07:32 Hgb 12.6 g/dL (14.0-18.0) L 08/08/17 07:32 Hct 37.0 % (42.0-52.0) L 08/08/17 07:32 MCV 90.2 fl (80.0-105.0) 08/08/17 07:32 MCH 30.7 pg (25.0-35.0) 08/08/17 07:32 MCHC 34.1 g/dl (31.0-37.0) 08/08/17 07:32 RDW 14.0 % (11.5-14.5) 08/08/17 07:32 Plt Count 88 10^3/uL (120.0-450.0) L 08/08/17 07:32 MPV 9.3 fl (7.0-11.0) 08/08/17 07:32 Gran % 63.3 % (50.0-68.0) 08/08/17 07:32 Lymph % (Auto) 26.0 % (22.0-35.0) 08/08/17 07:32 Payne % (Auto) 8.9 % (1.0-6.0) H 08/08/17 07:32 Eos % (Auto) 1.6 % (1.5-5.0) 08/08/17 07:32 Baso % (Auto) 0.2 % (0.0-3.0) 08/08/17 07:32 Gran # 3.50 (1.4-6.5) 08/08/17 07:32 Lymph # 1.4 (1.2-3.4) 08/08/17 07:32 Payne # 0.5 (0.1-0.6) 08/08/17 07:32 Eos # 0.1 (0.0-0.7) 08/08/17 07:32 Baso # 0.01 K/mm3 (0.0-2.0) 08/08/17 07:32 PT 10.4 SECONDS (9.4-12.5) 08/04/17 16:50 INR 0.96 (0.93-1.08) 08/04/17 16:50 APTT 28.2 Seconds (25.1-36.5) 08/04/17 16:50 pO2 133 mm/Hg (30-55) H 08/04/17 20:37 VBG pH 7.50 (7.32-7.43) H 08/04/17 20:37 VBG pCO2 37.0 (40-60) L 08/04/17 20:37 VBG HCO3 28.9 mmol/l (21-28) H 08/04/17 20:37 VBG Total CO2 30.0 mmol.L (22-28) H 08/04/17 20:37 VBG O2 Sat (Calc) 98.4 % (40-65) H 08/04/17 20:37 VBG Base Excess 5.5 mmol/L (0.0-2.0) H 08/04/17 20:37 VBG Potassium 3.8 mmol/L (3.6-5.2) 08/04/17 20:37 Sodium 142.0 mmol/L (132-148) 08/04/17 20:37 Chloride 108.0 mmol/L (98-107) H 08/04/17 20:37 Glucose 99 mg/dl (75-110) 08/04/17 20:37 Lactate 2.6 mmol/L (0.7-2.1) H 08/04/17 20:37 FiO2 21.0 % 08/04/17 20:37 Sodium 138 mmol/L (132-148) 08/08/17 07:32 Potassium 4.5 mmol/L (3.6-5.0) 08/08/17 07:32 Chloride 102 mmol/L (98-107) 08/08/17 07:32 Carbon Dioxide 29 mmol/L (21-33) 08/08/17 07:32 Anion Gap 12 (10-20) 08/08/17 07:32 BUN 13 mg/dL (7-21) 08/08/17 07:32 Creatinine 1.0 mg/dL (0.8-1.5) 08/08/17 07:32 Est GFR ( Amer) > 60 08/08/17 07:32 Est GFR (Non-Af Amer) > 60 08/08/17 07:32 POC Glucose (mg/dL) 117 mg/dL (65-110) H 08/08/17 16:47 Random Glucose 116 mg/dL (70-110) H 08/08/17 07:32 Hemoglobin A1c 5.7 % (4.2-6.5) 08/05/17 06:00 Calcium 9.4 mg/dL (8.4-10.5) 08/08/17 07:32 Phosphorus 2.8 mg/dL (2.5-4.5) 08/08/17 07:32 Magnesium 1.8 mg/dL (1.7-2.2) 08/08/17 07:32 Total Bilirubin 0.8 mg/dL (0.2-1.3) 08/08/17 07:32 AST 54 U/L (17-59) 08/08/17 07:32 ALT 51 U/L (7-56) 08/08/17 07:32 Alkaline Phosphatase 99 U/L (38-126) 08/08/17 07:32 Lactate Dehydrogenase 723 U/L (333-699) H 08/04/17 16:50 Total Creatine Kinase 435 U/L (35-230) H 08/04/17 16:50 CK-MB (CK-2) 4.4 ng/mL (0.0-3.6) H 08/04/17 16:50 CK-MB (CK-2) % Cancelled 08/04/17 16:50 Troponin I < 0.01 ng/mL 08/05/17 06:00 NT-Pro-B Natriuret Pep 88.3 pg/mL (0-450) 08/04/17 16:50 Total Protein 7.3 g/dL (5.8-8.3) 08/08/17 07:32 Albumin 4.0 g/dL (3.0-4.8) 08/08/17 07:32 Globulin 3.4 gm/dL 08/08/17 07:32 Albumin/Globulin Ratio 1.2 (1.1-1.8) 08/08/17 07:32 Triglycerides 296 mg/dL (35-160) H 08/05/17 06:00 Cholesterol 145 mg/dL (130-200) 08/05/17 06:00 LDL Cholesterol Direct 49 mg/dL (0-129) 08/05/17 06:00 HDL Cholesterol 67 mg/dL (29-60) H 08/05/17 06:00 TSH 3rd Generation 1.25 mIU/mL (0.46-4.68) 08/05/17 06:00 Venous Blood Potassium 3.8 mmol/L (3.6-5.2) 08/04/17 20:37 Alcohol, Quantitative 297 mg/dL (0-10) H 08/04/17 16:50 - Hospital Course Hospital Course: 56 year old male with past medical history of ETOH abuse, paroxysmal afib (not on AC), CHF, HTN, DM, dyslipidemia presents to the ED for excessive alcohol intake and feeling depressed. While here, patient was seen by Cardio and Psych. As per Cardio, he was converted from rapid AFib on Cardizem, then switched to Metoprolol 50mg BID, and was started on Eliquis anticoagulation for his rapid AFib. Patient was informed if he is non-compliant with medications or if he is going to resume drinking, he will not be discharged with the Eliquis , as bleeding risks outweigh any benefit in that scenario, but he re-iterated that he wants to stop using alcohol completely. Psych cleared for discharge, stating he did not qualify for Psych admission. He was given the number for a group home, and was given follow up instructions for detox centers by Case management/social group worker. He was then discharged. Patient seen, reviewed, and discussed with attending, Dr. Ochoa. Discharge Exam - Additional Findings Additional findings: Please see hospitalist service progress note for 08/08/17 for exam details Discharge Plan - Discharge Medications Prescriptions: Apixaban [Eliquis] 5 mg PO BID 60 Days tab Multivitamin Therapeutic Tab [Thera Tab] 1 tab PO 0800 7 Days tab Thiamine [Vitamin B1 Tab] 100 mg PO DAILY 7 Days tab - Follow Up Plan Condition: GUARDED Disposition: HOME/ ROUTINE Instructions: Atrial Fibrillation (DC), Heart Healthy Diet (DC), Narcotic Abuse (DC), Abuse of Alcohol (DC) Referrals: Sully Mendiola MD [Primary Care Provider] -
== END 2017-08-08 19:00 | disposition home or self-care (01) | DRG 544 ==
LOC: ED 16:27 → ERH 20:33 → 2RSO 22:12 → OBSVTOIN 08-05 16:50
PROVIDERS: ADMIT Internal Medicine; ATTEND Internal Medicine
PROC: HZ2ZZZZ Detoxification Services for Substance Abuse Treatment (ICD-10-PCS; principal; 2017-08-04)
DX: I48.0 Paroxysmal atrial fibrillation (principal); F10.239 Alcohol dependence with withdrawal, unspecified; I50.22 Chronic systolic (congestive) heart failure; I42.6 Alcoholic cardiomyopathy; I11.0 Hypertensive heart disease with heart failure; E11.42 Type 2 diabetes mellitus with diabetic polyneuropathy; L97.529 Non-pressure chronic ulcer of other part of left foot with unspecified severity; E11.621 Type 2 diabetes mellitus with foot ulcer; F10.24 Alcohol dependence with alcohol-induced mood disorder; E78.5 Hyperlipidemia, unspecified; I48.2 Chronic atrial fibrillation; F32.9 Major depressive disorder, single episode, unspecified; Y90.8 Blood alcohol level of 240 mg/100 ml or more; F17.210 Nicotine dependence, cigarettes, uncomplicated; Z59.0 Homelessness; Z91.81 History of falling

== ENCOUNTER 2018-03-26 05:42 | Emergency (ER) | payer OTHER ==
[2018-03-26 05:42] VITALS: PULSE 73; BMI 31.1
--- NOTE | 2018-03-26 05:54 | ED PDOC ---
Arrival/HPI - General Chief Complaint: Alcohol Ingestion Time Seen by Provider: 03/26/18 05:51 Historian: Patient - History of Present Illness Narrative History of Present Illness (Text): 03/26/18 05:52 57 year old male, with past medical history includes hypertension, depression and alcohol abuse, presents to the Emergency department s/p public intoxication prior to arrival. Patient admits to drinking tonight and requests a place to stay. Patient denies any fever, chill, nausea, vomiting, diarrhea, abdominal pain, chest pain, shortness of breath or any other somatic complaints. Patient denies any suicidal or homicidal ideation. Time/Duration: Prior to Arrival Symptom Onset: Gradual Symptom Course: Unchanged Activities at Onset: Other (Drinking) Past Medical History - Provider Review Nursing Documentation Reviewed: Yes - Past History Past History: Unable to Obtain - Infectious Disease Hx of Infectious Diseases: None - Tetanus Immunization Tetanus Immunization: Unknown - Cardiac Hx Atrial Fibrillation: Yes Hx Hypertension: Yes Hx Peripheral Edema: Yes - Pulmonary Hx Respiratory Disorders: No Hx Tuberculosis: No - Neurological Hx Neurological Disorder: No HX Cerebrovascular Accident: No - HEENT Hx HEENT Disorder: No - Renal Hx Renal Disorder: No - Endocrine/Metabolic Hx Endocrine Disorders: Yes - Hematological/Oncological Hx Blood Disorders: No Hx Blood Transfusions: No Hx Cancer: No - Integumentary Hx Dermatological Disorder: No - Musculoskeletal/Rheumatological Hx Falls: No - Gastrointestinal Hx Gastrointestinal Disorders: No - Genitourinary/Gynecological Hx Genitourinary Disorders: No Hx Reproductive Disorders: No - Psychiatric Hx Anxiety: Yes Hx Bipolar Disorder: Yes Hx Depression: Yes Hx Substance Use: No (denies) - Past Surgical History Past Surgical History: Non-Contributing - Surgical History Hx Orthopedic Surgery: Yes Other/Comment: had sx to drain left elbow infection 10 yrs ago - Anesthesia Hx Anesthesia: Yes Hx Anesthesia Reactions: No Hx Malignant Hyperthermia: No - Suicidal Assessment Feels Threatened In Home Enviroment: No Family/Social History - Physician Review Nursing Documentation Reviewed: Yes Family/Social History: No Known Family HX Smoking Status: Current Some Days Smoker Hx Alcohol Use: Yes Amount per day: 10 Hx Substance Use: No (denies) Hx Substance Use Treatment: No Allergies/Home Meds Allergies/Adverse Reactions: Allergies No Known Allergies Allergy (Verified 08/11/17 15:55) Home Medications: Home Meds Medication Instructions Recorded Confirmed Unobtainable 07/31/17 07/31/17 Review of Systems - Physician Review All systems were reviewed & negative as marked: Yes - Review of Systems Constitutional: Other (Intoxicated). absent: Fevers Eyes: Normal ENT: Normal Respiratory: Normal. absent: SOB Cardiovascular: Normal. absent: Chest Pain Gastrointestinal: Normal. absent: Abdominal Pain, Diarrhea, Nausea, Vomiting Genitourinary Male: Normal Musculoskeletal: Normal Skin: Normal Neurological: Normal Endocrine: Normal Hemo/Lymphatic: Normal Psychiatric: Normal. absent: Suicidal Ideation Physical Exam Vital Signs Reviewed: Yes Vital Signs Temp Pulse Resp BP Pulse Ox 03/26/18 05:42 97.8 F 88 18 135/84 97 Temperature: Afebrile Blood Pressure: Normal Pulse: Regular Respiratory Rate: Normal Appearance: Positive for: Well-Appearing, Non-Toxic, Comfortable Pain Distress: None Mental Status: Positive for: Alert and Oriented X 3 - Systems Exam Head: Present: Atraumatic, Normocephalic Pupils: Present: PERRL Extroacular Muscles: Present: EOMI Conjunctiva: Present: Normal Neck: Present: Normal Range of Motion Respiratory/Chest: Present: Clear to Auscultation, Good Air Exchange. No: Respiratory Distress, Accessory Muscle Use Cardiovascular: Present: Regular Rate and Rhythm, Normal S1, S2. No: Murmurs Abdomen: No: Tenderness, Distention, Peritoneal Signs Back: Present: Normal Inspection Upper Extremity: Present: Normal Inspection. No: Cyanosis, Edema Lower Extremity: Present: Normal Inspection. No: Edema Neurological: Present: GCS=15, CN II-XII Intact, Speech Normal Skin: Present: Warm, Dry, Normal Color. No: Rashes Psychiatric: Present: Alert, Oriented x 3, Normal Insight, Normal Concentration Medical Decision Making ED Course and Treatment: 03/26/18 05:56 Impression: 57 year old male presents to the Emergency department s/p public intoxication. Differential Diagnosis included but are not limited to: alcohol intoxication Plan: -- Reassess and disposition Prior Visits: Notes and results from previous visits were reviewed. Progress Notes: 03/26/18 07:00 Case endorsed to /pending sobriety/reassess/final disposition - Scribe Statement The provider has reviewed the documentation as recorded by the Scribe Palak Corley. All medical record entries made by the Scribe were at my direction and personally dictated by me. I have reviewed the chart and agree that the record accurately reflects my personal performance of the history, physical exam, medical decision making, and the department course for this patient. I have also personally directed, reviewed, and agree with the discharge instructions and disposition. Disposition/Present on Arrival - Present on Arrival Any Indicators Present on Arrival: No History of DVT/PE: No History of Uncontrolled Diabetes: No Urinary Catheter: No History of Decub. Ulcer: No History Surgical Site Infection Following: None - Disposition Have Diagnosis and Disposition been Completed?: No Diagnosis: Alcohol intoxication Disposition Time: 07:00 Patient Problems: Current Active Problems Problem Status Onset Alcohol intoxication Acute Condition: STABLE Forms: [employer] (French)
--- NOTE | 2018-03-26 07:39 | ED PDOC ---
Physical Exam Vital Signs Reviewed: Yes Vital Signs Temp Pulse Resp BP Pulse Ox 03/26/18 08:21 98 F 70 18 130/66 98 03/26/18 07:30 76 17 128/72 97 03/26/18 05:42 97.8 F 88 18 135/84 97 Temperature: Afebrile Blood Pressure: Normal Pulse: Regular Respiratory Rate: Normal Appearance: Positive for: Well-Appearing, Non-Toxic, Comfortable Pain Distress: None Mental Status: Positive for: Alert and Oriented X 3 - Systems Exam Head: Present: Atraumatic, Normocephalic Pupils: Present: PERRL Extroacular Muscles: Present: EOMI Conjunctiva: Present: Normal Mouth: Present: Moist Mucous Membranes Neck: Present: Normal Range of Motion. No: Meningeal Signs, MIDLINE TENDERNESS , Paraspinal Tenderness Respiratory/Chest: Present: Clear to Auscultation, Good Air Exchange. No: Respiratory Distress, Accessory Muscle Use Cardiovascular: Present: Regular Rate and Rhythm, Normal S1, S2. No: Murmurs Abdomen: No: Tenderness, Distention, Peritoneal Signs Back: Present: Normal Inspection. No: CVA Tenderness, Midline Tenderness Upper Extremity: Present: Normal Inspection. No: Cyanosis, Edema Lower Extremity: Present: Normal Inspection. No: Edema, CALF TENDERNESS Neurological: Present: GCS=15, CN II-XII Intact, Speech Normal Skin: Present: Warm, Dry, Normal Color. No: Rashes Psychiatric: Present: Alert, Oriented x 3, Normal Insight, Normal Concentration Medical Decision Making ED Course and Treatment: 03/26/18 07:38 Pt signed out to me by Dr. Patel, pending sobriety/reassess/final disposition. 03/26/18 08:23 Patient is awake, alert, oriented and speaking full sentences. Pt is sober and stable for d/c. - Scribe Statement The provider has reviewed the documentation as recorded by the Scribgail Abdul All medical record entries made by the Scribe were at my direction and personally dictated by me. I have reviewed the chart and agree that the record accurately reflects my personal performance of the history, physical exam, medical decision making, and the department course for this patient. I have also personally directed, reviewed, and agree with the discharge instructions and disposition. Disposition/Present on Arrival - Present on Arrival Any Indicators Present on Arrival: No History of DVT/PE: No History of Uncontrolled Diabetes: No Urinary Catheter: No History of Decub. Ulcer: No History Surgical Site Infection Following: None - Disposition Have Diagnosis and Disposition been Completed?: Yes Diagnosis: Alcohol intoxication Disposition: HOME/ ROUTINE Disposition Time: 08:00 Condition: STABLE Discharge Instructions (ExitCare): Alcohol Abuse and Alcoholism (DC) Additional Instructions: return to er with worsening symptoms or concerns. Referrals: Alcoholics Anonymous [Outside] - Follow up with primary Sully Mendiola MD [Primary Care Provider] - Follow up with primary Forms: [employer] (Italian)
[2018-03-26 08:22] VITALS: BP 130/66; PULSE 70; RESP 18; TEMP 98; O2SAT 98
== END 2018-03-26 08:24 | disposition home or self-care (01) ==
LOC: ED 05:42
DX: F10.129 Alcohol abuse with intoxication, unspecified (principal)

== ENCOUNTER 2018-04-18 16:35 | Emergency (ER) | payer OTHER ==
[2018-04-18 16:35] VITALS: PULSE 73; BMI 31.6
[2018-04-18 16:49] VITALS: TEMP 98.5
[2018-04-18] MEDS ORDERED: Sodium Chloride 0.9% 1,000 ML IV STA (17:12)
--- NOTE | 2018-04-18 17:12 | ED PDOC ---
Arrival/HPI - General Chief Complaint: Alcohol Ingestion Time Seen by Provider: 04/18/18 17:07 Historian: Patient, EMS - History of Present Illness Narrative History of Present Illness (Text): 04/18/18 17:08 57 y/o male, pmh including a.fibb?, psychiatric history including alcohol intoxication and abuse, nkda, +etoh on breath, biba c/o alcohol intoxication in public. Pt. stated that he was drinking today, walk to the homeless assisted which they called for the ambulance to bring to the ER for evaluation as he had a fall today on the frontal head but not on any antiplatete or anticoagulant, stated that he has headache from the fall today, no numbness or tingling, no LOC , able to recall the whole event from the fall, no change in vision, no neck or back pain, no palpitation, no night sweat, no other medical or psychological complaints. Past Medical History - Provider Review Nursing Documentation Reviewed: Yes - Past History Past History: Unable to Obtain - Infectious Disease Hx of Infectious Diseases: None - Tetanus Immunization Tetanus Immunization: Unknown - Cardiac Hx Atrial Fibrillation: Yes Hx Cardiac Arrhythmia: Yes (afib) Hx Hypertension: Yes Hx Peripheral Edema: Yes - Pulmonary Hx Respiratory Disorders: No Hx Tuberculosis: No - Neurological Hx Neurological Disorder: No HX Cerebrovascular Accident: No - HEENT Hx HEENT Disorder: No - Renal Hx Renal Disorder: No - Endocrine/Metabolic Hx Endocrine Disorders: Yes - Hematological/Oncological Hx Blood Disorders: No - Integumentary Hx Dermatological Disorder: No - Musculoskeletal/Rheumatological Hx Fractures: Yes - Gastrointestinal Hx Gastrointestinal Disorders: No - Genitourinary/Gynecological Hx Genitourinary Disorders: No Hx Reproductive Disorders: No - Psychiatric Hx Anxiety: Yes Hx Bipolar Disorder: Yes Hx Depression: Yes Hx Substance Use: No (denies) - Past Surgical History Past Surgical History: Non-Contributing - Surgical History Hx Orthopedic Surgery: Yes Other/Comment: had sx to drain left elbow infection 10 yrs ago - Anesthesia Hx Anesthesia: Yes Hx Anesthesia Reactions: No Hx Malignant Hyperthermia: No - Suicidal Assessment Feels Threatened In Home Enviroment: No Family/Social History - Physician Review Nursing Documentation Reviewed: Yes Family/Social History: Unknown Family HX Smoking Status: Light Smoker < 10 Cigarettes Daily Hx Alcohol Use: Yes Frequency of alcohol use: Daily Amount per day: 10 Hx Substance Use: No (denies) Hx Substance Use Treatment: No Allergies/Home Meds Allergies/Adverse Reactions: Allergies No Known Allergies Allergy (Verified 04/17/18 12:00) Home Medications: Home Meds Medication Instructions Recorded Confirmed Gabapentin 300 mg PO TID 04/17/18 04/17/18 Venlafaxine [Effexor] 37.5 mg PO DAILY 04/17/18 04/17/18 Review of Systems - Review of Systems Constitutional: absent: Fatigue, Fevers Eyes: absent: Vision Changes ENT: absent: Hearing Changes Respiratory: absent: SOB, Cough Cardiovascular: absent: Chest Pain Gastrointestinal: absent: Abdominal Pain, Nausea, Vomiting Musculoskeletal: absent: Arthralgias, Back Pain Skin: absent: Rash, Pruritis Neurological: Headache Psychiatric: absent: Anxiety, Depression Physical Exam Vital Signs Reviewed: Yes Vital Signs Temp Pulse Resp BP Pulse Ox 04/18/18 19:56 90 14 90/42 L 95 04/18/18 18:37 96 H 18 121/68 97 04/18/18 16:35 98.5 F 99 H 18 108/56 L 93 L Temperature: Afebrile Pulse: Regular Respiratory Rate: Normal Appearance: Positive for: Well-Appearing, Non-Toxic, Comfortable Pain Distress: Mild Mental Status: Positive for: Alert and Oriented X 3 - Systems Exam Head: Present: Atraumatic, Normocephalic, Other (Facial: no bony tenderness or swelling, no deformity, no abrasion or laceration. ). No: Tenderness, Contusion , Swelling, Ecchymosis, Abrasion, Laceration Pupils: Present: PERRL Extroacular Muscles: Present: EOMI Conjunctiva: Present: Normal Ears: Present: NORMAL TM, Normal Canal. No: Erythema Mouth: Present: Moist Mucous Membranes Pharnyx: No: ERYTHEMA, EXUDATE, TONSILS ENLARGED Nose (External): Present: Atraumatic. No: Abrasion, Contusion, Laceration Nose (Internal): Present: Normal Inspection, No Active Bleeding. No: Rhinorrhea , Septal Hematoma, Epistaxis Neck: Present: Normal Range of Motion. No: MIDLINE TENDERNESS, Paraspinal Tenderness Respiratory/Chest: Present: Clear to Auscultation, Good Air Exchange. No: Respiratory Distress, Accessory Muscle Use Cardiovascular: Present: Regular Rate and Rhythm, Normal S1, S2. No: Murmurs Abdomen: No: Tenderness, Distention, Peritoneal Signs, Rebound, Guarding Back: Present: Normal Inspection. No: Midline Tenderness, Paraspinal Tenderness Upper Extremity: Present: Normal Inspection, Normal ROM, NORMAL PULSES, Neurovascularly Intact, Capillary Refill < 2s. No: Cyanosis, Edema, Deformity Lower Extremity: Present: Normal Inspection, NORMAL PULSES, Normal ROM, Neurovascularly Intact, Capillary Refill < 2 s. No: Edema, Deformity Neurological: Present: GCS=15, CN II-XII Intact, Speech Normal, Motor Func Grossly Intact, Memory Normal Skin: Present: Warm, Dry, Normal Color. No: Rashes Psychiatric: Present: Alert, Oriented x 3, Normal Insight, Normal Concentration Medical Decision Making ED Course and Treatment: 04/18/18 17:19 Differential: ICH vs. Rhabdomylosis vs. Dehydration -Labs -CT head -IV banana bag -Observe and reassess 04/18/18 17:35 -Pt. walking with normal gait and posture, no focal neurological deficits, no signs of withdrawals, aox4, refused blood work and hydration, convinced him to only agreed to CT head and refused all other labs/radiology testing. 04/18/18 17:55 -FS 77 -Pt. finally agreed to lab work and chest xray with CT head 04/18/18 21:09 -CT head: No acute intracranial pathology. -Chest xray: No active disease. -Labs are non-significant except elevated ast/alt to 100s which likely from the alcohol drinkin, pt. walking with normal gait and posture, no focal neurological deficits, no signs of withdrawals, aox4 -Headache resolved after sleeping and hydration -Discharge home with education on follow up with your own pmd and neurologist within 2 days, avoid public intoxication, return to the ER for any new or worsening signs or symptoms. - Lab Interpretations Lab Results: 04/18/18 18:10 04/18/18 18:10 Lab Results 04/18/18 18:10: Sodium 143, Potassium 4.1, Chloride 106, Carbon Dioxide 24, Anion Gap 17, BUN 10, Creatinine 1.0, Est GFR ( Amer) > 60, Est GFR (Non- Af Amer) > 60, Random Glucose 86, Calcium 8.7, Magnesium 2.1, Total Bilirubin 0.6, AST 108 H D, ALT 103 H, Alkaline Phosphatase 90, Total Creatine Kinase 203 , Total Protein 6.9, Albumin 4.1, Globulin 2.9, Albumin/Globulin Ratio 1.4 04/18/18 18:10: WBC 4.4 L, RBC 3.94, Hgb 12.3 L, Hct 35.5 L, MCV 90.1, MCH 31.2 , MCHC 34.6, RDW 16.4 H, Plt Count 128, MPV 9.7, Gran % 45.8 L, Lymph % (Auto) 40.1 H, Otero % (Auto) 12.5 H, Eos % (Auto) 1.4 L, Baso % (Auto) 0.2, Gran # 2.02 , Lymph # (Auto) 1.8, Otero # (Auto) 0.6, Eos # (Auto) 0.1, Baso # (Auto) 0.01 04/18/18 17:54: POC Glucose (mg/dL) 77 - RAD Interpretation Radiology Orders: 04/18/18 17:12 HEAD W/O CONTRAST [CT] Stat 04/18/18 17:14 CHEST ONE VIEW [RAD] Stat CT Head: COMPARISON: CT head dated 07/31/2017. TECHNIQUE: Axial computed tomography images were obtained through the head/brain without intravenous contrast. Radiation dose: Total exam DLP = 967.8 mGy-cm. This CT exam was performed using one or more of the following dose reduction techniques: Automated exposure control, adjustment of the mA and/or kV according to patient size, and/or use of iterative reconstruction technique. FINDINGS: HEMORRHAGE: No intracranial hemorrhage. BRAIN: No mass effect or edema. Mild atrophy. Mild chronic microvascular ischemic changes. VENTRICLES: Mildly prominent. No hydrocephalus. CALVARIUM: Unremarkable. PARANASAL SINUSES: Unremarkable as visualized. No significant inflammatory changes. MASTOID AIR CELLS: Unremarkable as visualized. No inflammatory changes. OTHER FINDINGS: None. IMPRESSION: No acute intracranial pathology. Age-related changes. No significant interval change. Chest xray: HISTORY: medical clearance COMPARISON: Chest radiograph dated 08/04/2017. FINDINGS: LUNGS: Clear. PLEURA: No pneumothorax or pleural fluid seen. CARDIOVASCULAR: Normal. OSSEOUS STRUCTURES: Unchanged. VISUALIZED UPPER ABDOMEN: Normal. OTHER FINDINGS: None. IMPRESSION: No active disease. 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 Disposition/Present on Arrival - Present on Arrival Any Indicators Present on Arrival: No History of DVT/PE: No History of Uncontrolled Diabetes: No Urinary Catheter: No History of Decub. Ulcer: No History Surgical Site Infection Following: None - Disposition Have Diagnosis and Disposition been Completed?: Yes Diagnosis: Fall, Alcohol intoxication Disposition: HOME/ ROUTINE Disposition Time: 21:09 Patient Plan: Discharge Patient Problems: Current Active Problems Problem Status Onset Alcohol intoxication Acute Fall Acute Condition: IMPROVED Additional Instructions: -Discharge home with education on follow up with your own pmd and neurologist within 2 days, avoid public intoxication, return to the ER for any new or worsening signs or symptoms. Referrals: Inocencia Marsh MD [Staff Provider] - Follow up with primary Forms: [employer] ([employer]), WORK NOTE
[2018-04-18] MEDS ORDERED: Multivitamin (MVI) 10 ML, Thiamine 100 MG, Folic Acid 1 MG in Sodium Chloride 0.9% 1,00... IV ONE (17:13)
--- NOTE | 2018-04-18 18:40 | CT ---
Date of service: 04/18/2018 PROCEDURE: CT HEAD WITHOUT CONTRAST. HISTORY: etoh, headache COMPARISON: CT head dated 07/31/2017. TECHNIQUE: Axial computed tomography images were obtained through the head/brain without intravenous contrast. Radiation dose: Total exam DLP = 967.8 mGy-cm. This CT exam was performed using one or more of the following dose reduction techniques: Automated exposure control, adjustment of the mA and/or kV according to patient size, and/or use of iterative reconstruction technique. FINDINGS: HEMORRHAGE: No intracranial hemorrhage. BRAIN: No mass effect or edema. Mild atrophy. Mild chronic microvascular ischemic changes. VENTRICLES: Mildly prominent. No hydrocephalus. CALVARIUM: Unremarkable. PARANASAL SINUSES: Unremarkable as visualized. No significant inflammatory changes. MASTOID AIR CELLS: Unremarkable as visualized. No inflammatory changes. OTHER FINDINGS: None. IMPRESSION: No acute intracranial pathology. Age-related changes. No significant interval change.
[2018-04-18 18:42] LABS: BASO # 0.01 K/mm3 (0.0-2.0); BASO % 0.2 % (0.0-3.0); EOS # 0.1 (0.0-0.7); EOS % 1.4 % (1.5-5.0); GRAN # 2.02 (1.4-6.5); GRAN % 45.8 % (50.0-68.0); HEMOGLOBIN 12.3 g/dL (14.0-18.0); LYMPH # 1.8 (1.2-3.4); LYMPH % 40.1 % (22.0-35.0); MEAN CELL VOLUME 90.1 fl (80.0-105.0); MEAN CORPUSCULAR HEMOGLOBIN 31.2 pg (25.0-35.0); MEAN CORPUSCULAR HGB CONC 34.6 g/dl (31.0-37.0); MEAN PLATELET VOLUME 9.7 fl (7.0-11.0); MONO # 0.6 (0.1-0.6); MONO % 12.5 % (1.0-6.0); RBC 3.94 10^6/uL (3.5-6.1); RED CELL DISTRIBUTION WIDTH 16.4 % (11.5-14.5); WHITE BLOOD COUNT 4.4 10^3/ul (4.5-11.0)
--- NOTE | 2018-04-18 18:43 | RAD ---
Date of service: 04/18/2018 PROCEDURE: CHEST RADIOGRAPH, 1 VIEW HISTORY: medical clearance COMPARISON: Chest radiograph dated 08/04/2017. FINDINGS: LUNGS: Clear. PLEURA: No pneumothorax or pleural fluid seen. CARDIOVASCULAR: Normal. OSSEOUS STRUCTURES: Unchanged. VISUALIZED UPPER ABDOMEN: Normal. OTHER FINDINGS: None. IMPRESSION: No active disease.
[2018-04-18 18:49] LABS: ALB/GLOB RATIO 1.4 (1.1-1.8)
[2018-04-18 18:50] LABS: ALBUMIN 4.1 g/dL (3.0-4.8); ALT/SGPT 103 U/L (7-56); AST/SGOT 108 U/L (17-59); BLOOD UREA NITROGEN 10 mg/dL (7-21); CALCIUM 8.7 mg/dL (8.4-10.5); GFR AFRICAN-AMERICAN > 60; GFR NON-AFRICAN AMERICAN > 60
[2018-04-18 21:34] VITALS: BP 130/83; PULSE 83; RESP 18; O2SAT 96
== END 2018-04-18 21:32 | disposition home or self-care (01) ==
LOC: ED 16:35
DX: F10.129 Alcohol abuse with intoxication, unspecified (principal); F17.210 Nicotine dependence, cigarettes, uncomplicated; I10 Essential (primary) hypertension; I48.91 Unspecified atrial fibrillation
CPT/HCPCS: 70450; 71045; 80053; 82550; 82948; 83735; 85025; 96360; 99285; J3411; J7030

== ENCOUNTER 2018-04-21 00:08 | Emergency (ER) | payer OTHER ==
[2018-04-21 00:09] VITALS: PULSE 73
[2018-04-21 00:18] VITALS: BMI 32.1
[2018-04-21 00:22] VITALS: O2SAT 98
--- NOTE | 2018-04-21 00:39 | ED PDOC ---
Arrival/HPI - General Chief Complaint: Psychiatric Evaluation Time Seen by Provider: 04/21/18 00:12 Historian: EMS EM Caveat: Intoxicated - History of Present Illness Narrative History of Present Illness (Text): 04/21/18 00:35 57 year old male, whose past medical history includes hypertension, depression and alcohol abuse, presents to the emergency department by EMS for public intoxication. Patient was found outside of a alevism sleeping and [employer] was called. Patient admits drinking tonight, but denies any drug use. HPI and ROS limited due to patient's state of intoxication. Past Medical History - Provider Review Nursing Documentation Reviewed: Yes - Past History Past History: Unable to Obtain - Infectious Disease Hx of Infectious Diseases: None - Tetanus Immunization Tetanus Immunization: Unknown - Cardiac Hx Atrial Fibrillation: Yes Hx Cardiac Arrhythmia: Yes (afib) Hx Hypertension: Yes Hx Peripheral Edema: Yes - Pulmonary Hx Respiratory Disorders: No Hx Tuberculosis: No - Neurological Hx Neurological Disorder: No HX Cerebrovascular Accident: No - HEENT Hx HEENT Disorder: No - Renal Hx Renal Disorder: No - Endocrine/Metabolic Hx Endocrine Disorders: Yes - Hematological/Oncological Hx Blood Disorders: No - Integumentary Hx Dermatological Disorder: No - Musculoskeletal/Rheumatological Hx Fractures: Yes - Gastrointestinal Hx Gastrointestinal Disorders: No - Genitourinary/Gynecological Hx Genitourinary Disorders: No Hx Reproductive Disorders: No - Psychiatric Hx Anxiety: Yes Hx Bipolar Disorder: Yes Hx Depression: Yes Hx Substance Use: No (denies) - Past Surgical History Past Surgical History: Non-Contributing - Surgical History Hx Orthopedic Surgery: Yes Other/Comment: had sx to drain left elbow infection 10 yrs ago - Anesthesia Hx Anesthesia: Yes Hx Anesthesia Reactions: No Hx Malignant Hyperthermia: No - Suicidal Assessment Feels Threatened In Home Enviroment: No Family/Social History - Physician Review Nursing Documentation Reviewed: Yes Family/Social History: No Known Family HX Smoking Status: Light Smoker < 10 Cigarettes Daily Hx Alcohol Use: Yes Amount per day: 10 Hx Substance Use: No (denies) Hx Substance Use Treatment: No Allergies/Home Meds Allergies/Adverse Reactions: Allergies No Known Allergies Allergy (Verified 04/17/18 12:00) Home Medications: Home Meds Medication Instructions Recorded Confirmed Gabapentin 300 mg PO TID 04/17/18 04/17/18 Venlafaxine [Effexor] 37.5 mg PO DAILY 04/17/18 04/17/18 Review of Systems - Physician Review All systems were reviewed & negative as marked: Yes - Review of Systems Systems not reviewed;Unavailable: Intoxicated Physical Exam Vital Signs Reviewed: Yes Vital Signs Temp Pulse Resp BP Pulse Ox 04/21/18 00:56 97.5 F L 98 H 18 137/70 98 04/21/18 00:18 97.6 F 102 H 16 138/92 H 98 Temperature: Afebrile Blood Pressure: Hypertensive Pulse: Tachycardic Respiratory Rate: Normal Appearance: Positive for: Well-Appearing, Non-Toxic, Comfortable Pain Distress: None Mental Status: Positive for: other (Alert and intoxicated ) - Systems Exam Head: Present: Atraumatic, Normocephalic Pupils: Present: PERRL Extroacular Muscles: Present: EOMI Conjunctiva: Present: Normal Mouth: Present: Moist Mucous Membranes, Other (Alcohol on breath) Neck: Present: Normal Range of Motion Respiratory/Chest: Present: Clear to Auscultation, Good Air Exchange. No: Respiratory Distress, Accessory Muscle Use Cardiovascular: Present: Regular Rate and Rhythm, Normal S1, S2. No: Murmurs Abdomen: No: Tenderness, Distention, Peritoneal Signs Back: Present: Normal Inspection Upper Extremity: Present: Normal Inspection. No: Cyanosis, Edema Lower Extremity: Present: Normal Inspection. No: Edema Neurological: Present: GCS=15, CN II-XII Intact Skin: Present: Warm, Dry, Normal Color. No: Rashes Psychiatric: Present: Alert, Intoxicated Medical Decision Making ED Course and Treatment: 04/21/18 00:40 Impression: 57 year old male presents for public intoxication. Admits to drinking tonight. Plan: -- Reassess and disposition Prior Visits: Notes and results from previous visits were reviewed. Patient was last seen in the emergency department on 04/21/18 presents for alcohol intoxication and fall today. Patient was discharged. Progress Notes: - Scribe Statement The provider has reviewed the documentation as recorded by the Josi Baker Provider Scribe Attestation: All medical record entries made by the Scribgail were at my direction and personally dictated by me. I have reviewed the chart and agree that the record accurately reflects my personal performance of the history, physical exam, medical decision making, and the department course for this patient. I have also personally directed, reviewed, and agree with the discharge instructions and disposition. Disposition/Present on Arrival - Present on Arrival Any Indicators Present on Arrival: No History of DVT/PE: No History of Uncontrolled Diabetes: No Urinary Catheter: No History of Decub. Ulcer: No History Surgical Site Infection Following: None - Disposition Have Diagnosis and Disposition been Completed?: Yes Diagnosis: Alcohol intoxication Disposition: HOME/ ROUTINE Disposition Time: 00:20 Condition: GOOD Discharge Instructions (ExitCare): Alcohol Abuse and Alcoholism (DC) Additional Instructions: EULOGIO ZUÑIGA, thank you for letting us take care of you today. The emergency medical care you received today was directed at your acute symptoms. If you were prescribed any medication, please fill it and take as directed. It may take several days for your symptoms to resolve. Return to the Emergency Department if your symptoms worsen, do not improve, or if you have any other problems. Please contact your doctor or call one of the physicians/clinics you have been referred to that are listed on the Patient Visit Information form that is included in your discharge packet. Bring any paperwork you were given at discharge with you along with any medications you are taking to your follow up visit. Our treatment cannot replace ongoing medical care by a primary care provider outside of the emergency department. Thank you for allowing the [facility] team to be part of your care today. Do not drink too much alcohol at once. Follow up with the clinic in 3-4 days for outpatient care. Referrals: Alcoholics Anonymous [Outside] - Follow up with primary [facility] [Outside] - Follow up with primary Lizeth Goins MD [Staff Provider] - Follow up with primary Forms: [employer] (Romanian)
[2018-04-21 01:25] VITALS: BP 137/70; PULSE 98; RESP 18; TEMP 97.5
== END 2018-04-21 01:05 | disposition home or self-care (01) ==
LOC: ED 00:08
DX: F10.129 Alcohol abuse with intoxication, unspecified (principal)

== ENCOUNTER 2018-06-24 21:52 | Emergency (ER) | payer OTHER ==
[2018-06-24 22:13] VITALS: BMI 29.8
--- NOTE | 2018-06-24 22:23 | ED PDOC ---
Arrival/HPI - General Time Seen by Provider: 06/24/18 22:19 Historian: Patient - History of Present Illness Narrative History of Present Illness (Text): 06/24/18 22:19 57 y/o male, very uncooperative patient, nkda, under arrest, c/o nasal congestion/coughing x 1 week. Pt. stated that he has been having nasal congestion, associated with productive coughing, no night sweat or fever, no palpitation, no chest pain, no dizziness, no night sweat, no rash, no abdominal or pelvic pain, no other medical or psychological complaints. I reviewed the triage note from the PROOF INSPECTOR, patient disagreed with the triage as well. Past Medical History - Provider Review Nursing Documentation Reviewed: Yes - Psychiatric Hx Substance Use: No - Anesthesia Hx Anesthesia: No Family/Social History - Physician Review Nursing Documentation Reviewed: Yes Family/Social History: Unknown Family HX Smoking Status: Unknown If Ever Smoked Hx Alcohol Use: Yes Hx Substance Use: No Allergies/Home Meds Allergies/Adverse Reactions: Allergies bee venom protein (honey bee) Allergy (Verified 05/26/18 23:56) URTICARIA Review of Systems - Review of Systems Constitutional: Fevers. absent: Fatigue Eyes: absent: Vision Changes ENT: Rhinorrhea. absent: Hearing Changes Respiratory: Cough, Sputum, Wheezing. absent: SOB Cardiovascular: absent: Chest Pain Gastrointestinal: absent: Abdominal Pain, Nausea, Vomiting Musculoskeletal: absent: Arthralgias, Back Pain Skin: absent: Rash, Pruritis, Skin Lesions Psychiatric: absent: Anxiety, Depression, Suicidal Ideation Physical Exam - Systems Exam Head: Present: Atraumatic, Normocephalic Pupils: Present: PERRL Extroacular Muscles: Present: EOMI Conjunctiva: Present: Normal Ears: Present: NORMAL TM, Normal Canal. No: Erythema Mouth: Present: Moist Mucous Membranes Pharnyx: Present: Normal. No: ERYTHEMA, EXUDATE, TONSILS ENLARGED Nose (External): Present: Atraumatic. No: Abrasion, Contusion, Laceration, Lesions Nose (Internal): Present: Normal Inspection, No Active Bleeding, Rhinorrhea. No: Septal Hematoma, Epistaxis Neck: Present: Normal Range of Motion, Trachea Midline. No: Meningeal Signs, MIDLINE TENDERNESS, Paraspinal Tenderness, Lymphadenopathy Respiratory/Chest: Present: Clear to Auscultation, Good Air Exchange, Wheezes (rt. lower lobe), Rhonchi. No: Respiratory Distress, Accessory Muscle Use, Decreased Breath Sounds, Rales, Retracting, Tachypneic, Tender to Palpation Cardiovascular: Present: Regular Rate and Rhythm, Normal S1, S2. No: Murmurs Abdomen: No: Tenderness, Distention, Peritoneal Signs Back: Present: Normal Inspection. No: CVA Tenderness, Midline Tenderness, Paraspinal Tenderness, Pain with Leg Raise, Decubitus Ulcer Upper Extremity: Present: Normal Inspection. No: Cyanosis, Edema Lower Extremity: Present: Normal Inspection. No: Edema Neurological: Present: GCS=15, CN II-XII Intact, Speech Normal, Motor Func Grossly Intact, Gait Normal, Memory Normal Skin: Present: Warm, Dry, Normal Color. No: Rashes Psychiatric: Present: Alert, Oriented x 3, Normal Insight, Normal Concentration Medical Decision Making ED Course and Treatment: 06/24/18 22:31 -labs/ua -CXR -IVF/duoneb/prednisone 06/25/18 00:06 -Chest xray wet read: no active disease -Labs show no acute findings with the vital signs are stable -BNP and troponin within normal limit after 1 week of coughing -All labs and radiology results discussed with the patient. Pt. is agitated, cursing at me, making racist comment towards me, spitting at me and the ER staffs, and threatened to punch me, yelling at the ER staffs and the assigned PROOF INSPECTOR Benjamin as well. Pt. is here with the police with incarceration. Pt. refused further care and evaluation as he wants to leave the ER now, he is medically clear and stable at this time to leave. -Lung's wheezing and rhonchi resolved with the medications given in the ER, talking and yelling without shortness of breath. -Pt. feels well, will discharge home since he refused to further evaluate. -Pt. is medically clear and stable at this time for incarceration but bring the patient back for any new or worsening signs or symptoms. Discharge the patient with prednisone, albuterol MDI, zithromax, follow up with your own pmd within 2 days, return to the ER for any new or worsening signs or symptoms. - PA / SENIOR MEDIA PLANNER / Resident Statement MD/DO has reviewed & agrees with the documentation as recorded. Disposition/Present on Arrival - Present on Arrival Any Indicators Present on Arrival: No History of DVT/PE: No History of Uncontrolled Diabetes: No Urinary Catheter: No History of Decub. Ulcer: No History Surgical Site Infection Followin - Disposition Have Diagnosis and Disposition been Completed?: Yes Diagnosis: URI (upper respiratory infection) Disposition: HOME/ ROUTINE Disposition Time: 00:10 Patient Plan: Discharge Condition: IMPROVED Additional Instructions: -Pt. is medically clear and stable at this time for incarceration but bring the patient back for any new or worsening signs or symptoms. Discharge the patient with prednisone, albuterol MDI, zithromax, follow up with your own pmd within 2 days, return to the ER for any new or worsening signs or symptoms. Prescriptions: Albuterol HFA [Ventolin HFA 90 mcg/actuation (8 g)] 2 puff IH [id number] PRN #1 in PRN Reason: Other Azithromycin [Zithromax] 250 mg PO DAILY #4 tab Prednisone 50 mg PO DAILY #4 tab Referrals: Marjorie Moncada MD [Staff Provider] - Follow up with primary [facility] [Outside] - Follow up with primary Forms: WORK NOTE
[2018-06-24] MEDS ORDERED: Albuterol-Ipratrop 3 mg / 0.5 (3 ml) UD IH STA (22:25)
[2018-06-24 22:34] VITALS: RESP 18; TEMP 98.1
[2018-06-24 23:31] LABS: BASO # 0.04 K/mm3 (0.0-2.0); BASO % 0.6 % (0.0-3.0); EOS # 0.2 (0.0-0.7); EOS % 2.5 % (1.5-5.0); GRAN # 3.17 (1.4-6.5); GRAN % 46.7 % (50.0-68.0); HEMOGLOBIN 13.2 g/dL (14.0-18.0); LYMPH # 2.8 (1.2-3.4); LYMPH % 41.8 % (22.0-35.0); MEAN CELL VOLUME 93.2 fl (80.0-105.0); MEAN CORPUSCULAR HEMOGLOBIN 31.9 pg (25.0-35.0); MEAN CORPUSCULAR HGB CONC 34.2 g/dl (31.0-37.0); MEAN PLATELET VOLUME 10.2 fl (7.0-11.0); MONO # 0.6 (0.1-0.6); MONO % 8.4 % (1.0-6.0); RBC 4.14 10^6/uL (3.5-6.1); RED CELL DISTRIBUTION WIDTH 14.3 % (11.5-14.5); WHITE BLOOD COUNT 6.8 10^3/ul (4.5-11.0)
[2018-06-24 23:41] LABS: ALB/GLOB RATIO 1.5 (1.1-1.8); ALBUMIN 4.3 g/dL (3.0-4.8); ALT/SGPT 42 U/L (7-56); AST/SGOT 44 U/L (17-59); BLOOD UREA NITROGEN 18 mg/dL (7-21); CALCIUM 8.9 mg/dL (8.4-10.5); GFR NON-AFRICAN AMERICAN > 60
[2018-06-24 23:52] LABS: B-TYPE NATRIURETIC PEPTIDE 155 pg/mL (0-450); TROPONIN I < 0.01 ng/mL
[2018-06-25 01:45] VITALS: BP 138/78; PULSE 85; O2SAT 100
--- NOTE | 2018-06-25 10:18 | RAD ---
Date of service: 06/24/2018 HISTORY: cough and congestion COMPARISON: No prior. FINDINGS: LUNGS: No active pulmonary disease. PLEURA: No significant pleural effusion identified, no pneumothorax apparent. CARDIOVASCULAR: Normal. OSSEOUS STRUCTURES: No significant abnormalities. VISUALIZED UPPER ABDOMEN: Normal. OTHER FINDINGS: None. IMPRESSION: No active disease. Concordant results with the preliminary interpretation rendered by the emergency department physician procedure.
== END 2018-06-25 00:17 | disposition home or self-care (01) ==
LOC: MERGE 21:52 → ED 21:52
DX: Z02.89 Encounter for other administrative examinations (principal); J06.9 Acute upper respiratory infection, unspecified

== ENCOUNTER 2018-07-09 16:54 | Emergency (ER) | payer OTHER ==
[2018-07-09 16:55] VITALS: PULSE 73; BMI 35.9
[2018-07-09] MEDS ORDERED: Multivitamin (MVI) 10 ML, Thiamine 100 MG, Folic Acid 1 MG in Dextrose 5% In Water 1,00... IV ONE (17:16)
--- NOTE | 2018-07-09 17:22 | ED PDOC ---
Arrival/HPI <Perez Pacheco - Last Filed: 07/09/18 18:30> - History of Present Illness Narrative History of Present Illness (Text): 07/09/18 17:18 57 yo M with Past medical history of alcohol abuse, depression, HTN, DM brought into ED under police custody for alcohol intoxication and public uri nation. Awaiting medical clearance for incarceration. HPI and ROS unattainable due to clinical status. Time/Duration: Prior to Arrival Symptom Onset: Sudden Symptom Course: Unchanged Quality: Unable to Describe Activities at Onset: Light <Ian Fernandes - Last Filed: 07/09/18 18:33> - General Chief Complaint: Alcohol Ingestion Time Seen by Provider: 07/09/18 16:58 Past Medical History - Provider Review Nursing Documentation Reviewed: Yes - Past History Past History: Unable to Obtain - Infectious Disease Hx of Infectious Diseases: None - Tetanus Immunization Tetanus Immunization: Unknown - Cardiac Hx Cardiac Disorders: Yes - Pulmonary Hx Respiratory Disorders: No - Neurological Hx Neurological Disorder: No - HEENT Hx HEENT Disorder: No - Renal Hx Renal Disorder: No - Endocrine/Metabolic Hx Endocrine Disorders: Yes - Hematological/Oncological Hx Blood Disorders: No - Integumentary Hx Dermatological Disorder: No - Musculoskeletal/Rheumatological Hx Musculoskeletal Disorders: Yes - Gastrointestinal Hx Gastrointestinal Disorders: No - Genitourinary/Gynecological Hx Genitourinary Disorders: No - Psychiatric Hx Psychophysiologic Disorder: Yes Hx Substance Use: No (denies) - Past Surgical History Past Surgical History: Non-Contributing - Surgical History Hx Orthopedic Surgery: Yes Other/Comment: had sx to drain left elbow infection 10 yrs ago - Anesthesia Hx Anesthesia: Yes - Suicidal Assessment Feels Threatened In Home Enviroment: No <Ian Fernandes - Last Filed: 07/09/18 18:33> Family/Social History - Physician Review Nursing Documentation Reviewed: Yes Family/Social History: Unknown Family HX Smoking Status: Light Smoker < 10 Cigarettes Daily Hx Alcohol Use: Yes Frequency of alcohol use: Daily Amount per day: 10 Hx Substance Use: No (denies) Hx Substance Use Treatment: No <Ian Fernandes - Last Filed: 07/09/18 18:33> Allergies/Home Meds <Perez Pacheco - Last Filed: 07/09/18 18:30> <Ian Fernandes - Last Filed: 07/09/18 18:33> Allergies/Adverse Reactions: Allergies bee venom protein (honey bee) Allergy (Verified 07/09/18 17:05) URTICARIA Home Medications: Home Meds Medication Instructions Recorded Confirmed Gabapentin 300 mg PO TID 04/17/18 07/09/18 Venlafaxine [Effexor] 37.5 mg PO DAILY 04/17/18 07/09/18 Review of Systems - Review of Systems Systems not reviewed;Unavailable: Intoxicated <Ian Fernandes - Last Filed: 07/09/18 18:33> Physical Exam Vital Signs Resp Pulse Ox 07/09/18 17:26 19 98 <Perez Pacheco - Last Filed: 07/09/18 18:30> - Physical Exam Physical Exam Limitations: Intoxication, Uncooperative <Ian Fernandes - Last Filed: 07/09/18 18:33> Medical Decision Making - Lab Interpretations Lab Results: 07/09/18 18:00 07/09/18 18:00 Lab Results 07/09/18 18:00: WBC 7.2, RBC 3.95, Hgb 12.6 L, Hct 37.0 L, MCV 93.7, MCH 31.9, MCHC 34.1, RDW 13.7, Plt Count 160, MPV 10.5, Gran % 59.9, Lymph % (Auto) 29.0, [place] % (Auto) 8.8 H, Eos % (Auto) 2.0, Baso % (Auto) 0.3, Gran # 4.29, Lymph # (Auto) 2.1, [place] # (Auto) 0.6, Eos # (Auto) 0.1, Baso # (Auto) 0.02 07/09/18 18:00: Sodium 141, Potassium 4.6, Chloride 108 H, Carbon Dioxide 25, An ion Gap 13, BUN 18, Creatinine 0.8, Est GFR ( Amer) > 60, Est GFR (Non-Af Amer) > 60, Random Glucose 100, Calcium 8.5, Phosphorus 2.7, Magnesium 2.1, Total Bilirubin 0.3, AST 47, ALT 37, Alkaline Phosphatase 117, Total Protein 7.1, Albumin 4.1, Globulin 3.1, Albumin/Globulin Ratio 1.3 07/09/18 18:00: Alcohol, Quantitative 196 H <Perez Pacheco - Last Filed: 07/09/18 18:30> ED Course and Treatment: 07/09/18 17:21 Impression: 57 yo M brought in under police custody for alcohol intoxication and public urination. Awaiting medical clearance for incarceration Plan: --CMP --fingerstick glucose --IV banana bag --alcohol serum --reassess and disposition - Medication Orders Current Medication Orders: Multivitamins/Vitamin C 10 ml/Thiamine HCl 100 mg/ Folic Acid 1 mg/ Dextrose 1,011.2 mls @ 1,000 mls/hr IV .[id number] ONE Stop: 07/09/18 18:16 <Ian Fernandes - Last Filed: 07/09/18 18:33> Disposition/Present on Arrival - Present on Arrival Any Indicators Present on Arrival: No - Disposition Have Diagnosis and Disposition been Completed?: Yes Disposition Time: 18:31 Patient Plan: Discharge <Perez Pacheco - Last Filed: 07/09/18 18:30> - Present on Arrival Any Indicators Present on Arrival: No History of DVT/PE: No History of Uncontrolled Diabetes: No Urinary Catheter: No History of Decub. Ulcer: No History Surgical Site Infection Following: None - Disposition Have Diagnosis and Disposition been Completed?: Yes Patient Plan: Discharge <Ian Fernandes - Last Filed: 07/09/18 18:33> - Disposition Diagnosis: Alcohol abuse Disposition: HOME/ ROUTINE Patient Problems: Current Active Problems Problem Status Onset Alcohol abuse Acute Condition: STABLE Discharge Instructions (ExitCare): Alcohol Abuse and Alcoholism (DC) Referrals: Lizeth Goins MD [Medical Doctor] - Follow up with primary [facility] - Follow up with primary Forms: [employer] ([place]ese)
[2018-07-09 17:28] VITALS: RESP 19
[2018-07-09 18:11] LABS: BASO # 0.02 K/mm3 (0.0-2.0); BASO % 0.3 % (0.0-3.0); EOS # 0.1 (0.0-0.7); GRAN # 4.29 (1.4-6.5); GRAN % 59.9 % (50.0-68.0); HEMOGLOBIN 12.6 g/dL (14.0-18.0); LYMPH # 2.1 (1.2-3.4); MEAN CELL VOLUME 93.7 fl (80.0-105.0); MEAN CORPUSCULAR HEMOGLOBIN 31.9 pg (25.0-35.0); MEAN CORPUSCULAR HGB CONC 34.1 g/dl (31.0-37.0); MEAN PLATELET VOLUME 10.5 fl (7.0-11.0); MONO # 0.6 (0.1-0.6); MONO % 8.8 % (1.0-6.0); RBC 3.95 10^6/uL (3.5-6.1); RED CELL DISTRIBUTION WIDTH 13.7 % (11.5-14.5); WHITE BLOOD COUNT 7.2 10^3/ul (4.5-11.0)
[2018-07-09 18:21] LABS: ALB/GLOB RATIO 1.3 (1.1-1.8); ALBUMIN 4.1 g/dL (3.0-4.8); ALT/SGPT 37 U/L (7-56); AST/SGOT 47 U/L (17-59); BLOOD UREA NITROGEN 18 mg/dL (7-21); CALCIUM 8.5 mg/dL (8.4-10.5); GFR NON-AFRICAN AMERICAN > 60
[2018-07-09 18:43] VITALS: BP 129/53; PULSE 85; TEMP 98; O2SAT 99
== END 2018-07-09 18:44 ==
LOC: ED 16:54
DX: F10.129 Alcohol abuse with intoxication, unspecified (principal); I10 Essential (primary) hypertension; E11.9 Type 2 diabetes mellitus without complications; F17.210 Nicotine dependence, cigarettes, uncomplicated

== ENCOUNTER 2018-07-14 00:42 | Emergency (ER) | payer OTHER ==
[2018-07-14 00:44] VITALS: PULSE 73
[2018-07-14 00:49] VITALS: BMI 30.4
--- NOTE | 2018-07-14 01:32 | ED PDOC ---
Arrival/HPI - General Chief Complaint: Alcohol Ingestion Time Seen by Provider: 07/14/18 01:22 Historian: Patient, EMS - History of Present Illness Narrative History of Present Illness (Text): 07/14/18 01:30 A 57 year old male, whose past medical history includes alcohol abuse, depression, hypertension, and diabetes, presents to the emergency department brought in by EMS for alcohol intoxication earlier tonight. EMS reports they found the patient intoxicated and sleeping in a garcia. Patient denies any fever, chills, shortness of breath, chest pain, diarrhea, nausea, vomiting, urinary symptoms, back pain, neck pain, headache, dizziness, or any other complaints. Time/Duration: 4-6 hours (earlier) Symptom Onset: Gradual Symptom Course: Unchanged Activities at Onset: Light Context: Street Past Medical History - Provider Review Nursing Documentation Reviewed: Yes - Past History Past History: Unable to Obtain - Infectious Disease Hx of Infectious Diseases: None - Tetanus Immunization Tetanus Immunization: Unknown - Cardiac Hx Cardiac Disorders: Yes - Pulmonary Hx Respiratory Disorders: No - Neurological Hx Neurological Disorder: No - HEENT Hx HEENT Disorder: No - Renal Hx Renal Disorder: No - Endocrine/Metabolic Hx Endocrine Disorders: Yes - Hematological/Oncological Hx Blood Disorders: No - Integumentary Hx Dermatological Disorder: No - Musculoskeletal/Rheumatological Hx Musculoskeletal Disorders: Yes - Gastrointestinal Hx Gastrointestinal Disorders: No - Genitourinary/Gynecological Hx Genitourinary Disorders: No - Psychiatric Hx Psychophysiologic Disorder: Yes Hx Substance Use: No (denies) - Past Surgical History Past Surgical History: Non-Contributing - Surgical History Hx Orthopedic Surgery: Yes Other/Comment: had sx to drain left elbow infection 10 yrs ago - Anesthesia Hx Anesthesia: Yes - Suicidal Assessment Feels Threatened In Home Enviroment: No Family/Social History - Physician Review Nursing Documentation Reviewed: Yes Family/Social History: Unknown Family HX Smoking Status: Light Smoker < 10 Cigarettes Daily Hx Alcohol Use: Yes Frequency of alcohol use: Daily Amount per day: 10 Hx Substance Use: No (denies) Hx Substance Use Treatment: No Allergies/Home Meds Allergies/Adverse Reactions: Allergies bee venom protein (honey bee) Allergy (Verified 07/15/18 15:34) URTICARIA Home Medications: Home Meds Medication Instructions Recorded Confirmed RX: Gabapentin 300 mg PO TID 04/17/18 07/15/18 Venlafaxine [Effexor] 37.5 mg PO DAILY 04/17/18 07/15/18 Review of Systems - Physician Review All systems were reviewed & negative as marked: Yes - Review of Systems Constitutional: absent: Fevers, Night Sweats Respiratory: absent: SOB Cardiovascular: absent: Chest Pain Gastrointestinal: absent: Diarrhea, Nausea, Vomiting Genitourinary Male: absent: Urinary Output Changes Musculoskeletal: absent: Back Pain, Neck Pain Neurological: absent: Headache, Dizziness Physical Exam Vital Signs Reviewed: Yes Temperature: Afebrile Blood Pressure: Normal Pulse: Regular Respiratory Rate: Normal Appearance: Positive for: Non-Toxic, Ill-Appearing, Unkept, Other (+Inebriated) Pain Distress: None Mental Status: Positive for: Alert and Oriented X 3 - Systems Exam Head: Present: Atraumatic, Normocephalic Pupils: Present: PERRL Extroacular Muscles: Present: EOMI Conjunctiva: Present: Normal Mouth: Present: Moist Mucous Membranes Neck: Present: Normal Range of Motion Respiratory/Chest: Present: Clear to Auscultation, Good Air Exchange. No: Respiratory Distress, Accessory Muscle Use Cardiovascular: Present: Regular Rate and Rhythm, Normal S1, S2. No: Murmurs Abdomen: No: Tenderness, Distention, Peritoneal Signs Back: Present: Normal Inspection Upper Extremity: Present: Normal Inspection. No: Cyanosis, Edema Lower Extremity: Present: Normal Inspection. No: Edema Neurological: Present: GCS=15, CN II-XII Intact, Speech Normal Skin: Present: Warm, Dry, Normal Color. No: Rashes Psychiatric: Present: Alert, Oriented x 3, Intoxicated Medical Decision Making ED Course and Treatment: 07/14/18 01:32 Impression: 57 year old presenting to the emergency department by EMS for alcohol intoxication. Plan: -- Accucheck -- Obs in ED, reassess and disposition Prior Visits: Notes and results from previous visits were reviewed. Progress Notes: Accucheck is 94. 07/14/18 06:48 Patient awake and alert x 3, ambulating with a steady gait, speech is clear and coherent. Patient has no complaints. Patient is stable for discharge home. He verbalized understanding of his d/c instructions to f/u w/his pcp and to RTED for any new or concerning symptoms. - Scribe Statement The provider has reviewed the documentation as recorded by the Scribgail Smyth All medical record entries made by the Scribe were at my direction and personally dictated by me. I have reviewed the chart and agree that the record accurately reflects my personal performance of the history, physical exam, medical decision making, and the department course for this patient. I have also personally directed, reviewed, and agree with the discharge instructions and disposition. Disposition/Present on Arrival - Present on Arrival Any Indicators Present on Arrival: No History of DVT/PE: No History of Uncontrolled Diabetes: No Urinary Catheter: No History of Decub. Ulcer: No History Surgical Site Infection Following: None - Disposition Have Diagnosis and Disposition been Completed?: Yes Diagnosis: Alcohol intoxication, Alcohol dependence Disposition: HOME/ ROUTINE Disposition Time: 06:51 Patient Plan: Discharge Condition: STABLE Discharge Instructions (ExitCare): Alcohol Abuse and Alcoholism (DC) Referrals: Sully Mendiola MD [Primary Care Provider] - Follow up with primary Forms: [employer] (Swedish)
[2018-07-14 02:56] VITALS: RESP 18; TEMP 97.7
[2018-07-14 06:47] VITALS: BP 118/79; PULSE 90; O2SAT 98
== END 2018-07-14 06:48 | disposition home or self-care (01) ==
LOC: ED 00:42
DX: F10.229 Alcohol dependence with intoxication, unspecified (principal); E11.9 Type 2 diabetes mellitus without complications; I10 Essential (primary) hypertension; F17.210 Nicotine dependence, cigarettes, uncomplicated

== ENCOUNTER 2018-07-15 15:26 | Emergency (ER) | payer OTHER ==
[2018-07-15 15:27] VITALS: PULSE 73; BMI 30.4
--- NOTE | 2018-07-15 15:43 | ED PDOC ---
Arrival/HPI <Ethan Parker - Last Filed: 07/15/18 16:17> - General Historian: Patient - History of Present Illness Narrative History of Present Illness (Text): 07/15/18 15:38 57 y/o male with PMH of alcohol abuse, depression, HTN, DM presents to the ED vis EMS for acute alcohol intoxication. Pt was found unconscious behind an apartment building with abrasions on his face and head. Pt unable to tell me how he acquired the abrasions. He was seen here early this morning for alcohol intoxication and discharged home. ROS limited secondary to intoxication and uncooperative nature of pt. Denies SI, HI, hallucinations, delusions, chest pain, abdominal pain, SOB, headache, vision changes. <Sheri Amaral - Last Filed: 07/15/18 21:01> - General Time Seen by Provider: 07/15/18 15:29 Past Medical History - Provider Review Nursing Documentation Reviewed: Yes - Past History Past History: Unable to Obtain - Infectious Disease Hx of Infectious Diseases: None - Tetanus Immunization Tetanus Immunization: Unknown - Cardiac Hx Cardiac Disorders: Yes - Pulmonary Hx Respiratory Disorders: No - Neurological Hx Neurological Disorder: No - HEENT Hx HEENT Disorder: No - Renal Hx Renal Disorder: No - Endocrine/Metabolic Hx Endocrine Disorders: Yes - Hematological/Oncological Hx Blood Disorders: No - Integumentary Hx Dermatological Disorder: No - Musculoskeletal/Rheumatological Hx Musculoskeletal Disorders: Yes - Gastrointestinal Hx Gastrointestinal Disorders: No - Genitourinary/Gynecological Hx Genitourinary Disorders: No - Psychiatric Hx Psychophysiologic Disorder: Yes Hx Substance Use: No (denies) - Past Surgical History Past Surgical History: Non-Contributing - Surgical History Hx Orthopedic Surgery: Yes Other/Comment: had sx to drain left elbow infection 10 yrs ago - Anesthesia Hx Anesthesia: Yes - Suicidal Assessment Feels Threatened In Home Enviroment: No <Sheri Amaral - Last Filed: 07/15/18 21:01> Family/Social History - Physician Review Nursing Documentation Reviewed: Yes Family/Social History: No Known Family HX Smoking Status: Light Smoker < 10 Cigarettes Daily Hx Alcohol Use: Yes Frequency of alcohol use: Daily Amount per day: 10 Hx Substance Use: No (denies) Hx Substance Use Treatment: No <Sheri Amaral - Last Filed: 07/15/18 21:01> Allergies/Home Meds <Ethan Parker - Last Filed: 07/15/18 16:17> <Sheri Amaral - Last Filed: 07/15/18 21:01> Allergies/Adverse Reactions: Allergies bee venom protein (honey bee) Allergy (Verified 07/15/18 15:34) URTICARIA Home Medications: Home Meds Medication Instructions Recorded Confirmed Gabapentin 300 mg PO TID 04/17/18 07/15/18 Venlafaxine [Effexor] 37.5 mg PO DAILY 04/17/18 07/15/18 Review of Systems - Physician Review All systems were reviewed & negative as marked: Yes - Review of Systems Systems not reviewed;Unavailable: Intoxicated Constitutional: absent: Fevers Eyes: absent: Vision Changes Respiratory: absent: SOB, Cough Cardiovascular: absent: Chest Pain, Palpitations Gastrointestinal: absent: Abdominal Pain, Nausea, Vomiting Musculoskeletal: Neck Pain. absent: Back Pain Skin: Other (abrasions on face and head) Neurological: absent: Headache, Dizziness Psychiatric: absent: Anxiety <Sheri Amaral - Last Filed: 07/15/18 21:01> Physical Exam Vital Signs Reviewed: Yes Temperature: Afebrile Blood Pressure: Normal Pulse: Regular Respiratory Rate: Normal Appearance: Positive for: Non-Toxic, Unkept, Uncomfortable Pain Distress: None Mental Status: Positive for: Confused, Agitated, other (intoxicated) - Systems Exam Head: Present: Normocephalic, Abrasion (nose, left chin, left forehead). No: Contusion, Swelling, Ecchymosis, Laceration Pupils: Present: PERRL Extroacular Muscles: Present: EOMI Conjunctiva: Present: Normal Mouth: Present: Moist Mucous Membranes Nose (External): Present: Abrasion Nose (Internal): Present: No Active Bleeding, Other (dried blood). No: Septal Hematoma Neck: Present: Normal Range of Motion. No: Meningeal Signs, MIDLINE TENDERNESS, Paraspinal Tenderness Respiratory/Chest: Present: Clear to Auscultation, Good Air Exchange. No: Respiratory Distress, Accessory Muscle Use Cardiovascular: Present: Regular Rate and Rhythm, Normal S1, S2. No: Murmurs Abdomen: No: Tenderness, Distention, Peritoneal Signs Back: Present: Normal Inspection. No: Midline Tenderness, Paraspinal Tenderness Upper Extremity: Present: Normal Inspection, Normal ROM, NORMAL PULSES, Neurovascularly Intact. No: Cyanosis, Edema, Tenderness, Swelling, Deformity Lower Extremity: Present: Normal Inspection, NORMAL PULSES, Normal ROM, Neurovascularly Intact. No: Edema, Tenderness, Swelling, Deformity Neurological: Present: GCS=15, CN II-XII Intact, Speech Normal, Motor Func Grossly Intact, Normal Sensory Function Skin: Present: Warm, Dry, Normal Color. No: Rashes Psychiatric: Present: Alert, Oriented x 3, Normal Insight, Normal Concentration, Intoxicated. No: Suicidal Ideation, Homicidal Ideation, Delusional, Hallucinations, Lethargic <Sheri Amaral - Last Filed: 07/15/18 21:01> Medical Decision Making - RAD Interpretation Radiology Orders: 07/15/18 15:43 CERVICAL SPINE W/O CONTRAST [CT] Stat HEAD W/O CONTRAST [CT] Stat MAXILLOFACIAL W/O CONTRAST [CT] Stat <TolericoEthan - Last Filed: 07/15/18 16:17> ED Course and Treatment: 07/15/18 19:01 Initial Plan: --CT head w/o contrast --CT cervical spine w/o contrast --CT maxillofacial w/o contrast --Reassess and disposition --Discharge when clinically sober 07/15/18 19:06 Pt resting comfortably in bed, sleeping. No physical complaints. Abrasions on face cleaned with saline. Impression: Nasal fracture, Alcohol intoxication, Alcohol abuse Plan: --Decrease alcohol consumption --Seek AA --Followup with ENT within 2 days --Followup with primary doctor within 2 days --Return to ED for new or worsening symptoms Pt endorsed to Dr. Patel who will discharge pt when clinically sober with steady gait. Re-evaluation Time: 19:29 Reassessment Condition: Improving,but remains with symptoms - RAD Interpretation Narrative RAD Interpretations (Text): 07/15/2018 18:[address] IMPRESSION: No acute fracture or dislocation. Hypertrophic and degenerative changes at the C5-C6 and C6-C7 levels. Head tilt to the left. Clinical correlation advised. Dictator: Ori Sorenson MD 07/15/2018 18:[address] IMPRESSION: Minimal right nasal bone fracture suggested. Minimal polypoid thickening right maxillary sinus. Dictator: Ori Sorenson MD 07/15/2018 18:[address] IMPRESSION: No acute intracranial abnormality. Dictator: Ori Sorenson MD <Sheri Amaral - Last Filed: 07/15/18 21:01> - PA / CHANGE MANAGEMENT SPECIALIST / Resident Statement / has reviewed & agrees with the documentation as recorded. <Ethan Parker - Last Filed: 07/15/18 16:17> Disposition/Present on Arrival <Ethan Parker - Last Filed: 07/15/18 16:17> - Present on Arrival Any Indicators Present on Arrival: No History of DVT/PE: No History of Uncontrolled Diabetes: No Urinary Catheter: No History of Decub. Ulcer: No History Surgical Site Infection Following: None - Disposition Have Diagnosis and Disposition been Completed?: Yes Disposition Time: 18:45 Patient Plan: Discharge <Sheri Amaral - Last Filed: 07/15/18 21:01> - Disposition Diagnosis: Alcohol abuse, Nasal bone fracture, Alcohol intoxication, Abrasion Disposition: HOME/ ROUTINE Condition: IMPROVED Discharge Instructions (ExitCare): Nose Fracture, Alcohol Abuse and Alcoholism (DC) Additional Instructions: --Decrease alcohol consumption --Seek AA --Followup with ENT within 2 days --Followup with primary doctor within 2 days --Return to ED for new or worsening symptoms Referrals: Sully Mendiola MD [Primary Care Provider] - Follow up with primary Jacobo Moreno DO [Doctor Osteopathy] - Follow up with primary Alcoholics Anonymous [Outside] - Follow up with primary
[2018-07-15 16:52] VITALS: RESP 19; TEMP 98
[2018-07-15 20:14] VITALS: BP 127/62; PULSE 88; O2SAT 99
--- NOTE | 2018-07-16 08:15 | CT ---
Date of service: 07/15/2018 PROCEDURE: CT HEAD WITHOUT CONTRAST. HISTORY: intoxicated, facial injuries COMPARISON: 04/18/2018 TECHNIQUE: Axial computed tomography images were obtained through the head/brain without intravenous contrast. Supplemental Coronal and Sagittal projections created and reviewed. Radiation dose: Total exam DLP = 1106.30 mGy-cm. This CT exam was performed using one or more of the following dose reduction techniques: Automated exposure control, adjustment of the mA and/or kV according to patient size, and/or use of iterative reconstruction technique. FINDINGS: HEMORRHAGE: No intracranial hemorrhage. BRAIN: No mass effect or edema. No atrophy or chronic microvascular ischemic changes. VENTRICLES: Unremarkable. No hydrocephalus. CALVARIUM: Unremarkable. PARANASAL SINUSES: Unremarkable as visualized. No significant inflammatory changes. MASTOID AIR CELLS: Unremarkable as visualized. No inflammatory changes. OTHER FINDINGS: None. IMPRESSION: No acute intracranial abnormalities. No significant findings to account for the clinical presentation. No significant interval change compared to the prior examination(s). Concordant results (preliminary interpretation) provided by [email or web address]. Procedure Completed: 17:21. Preliminary Report: Dictated and Authenticated: 18:51. Final Interpretation: 08:10 July 16, 2018
--- NOTE | 2018-07-16 08:20 | CT ---
Date of service: 07/15/2018 PROCEDURE: CT MAXILLOFACIAL BONES WITHOUT CONTRAST HISTORY: intoxicated, facial injury COMPARISON: None available. TECHNIQUE: Contiguous axial CT images of the maxillofacial bones were obtained. Coronal and sagittal reformats were generated. Radiation dose: Total exam DLP = 883.96 mGy-cm. This CT exam was performed using one or more of the following dose reduction techniques: Automated exposure control, adjustment of the mA and/or kV according to patient size, and/or use of iterative reconstruction technique. FINDINGS: NASAL BONES: Acute fracture of the nasal bones new the bony nasal septum. The finding is marked on the study for review. associated soft tissue swelling noted. Evidence of old nasal bone fractures seen on prior CTs including 04/18/2018. ORBITS: Unremarkable. PARANASAL SINUSES/ MASTOIDS: Clear. MAXILLA: Unremarkable. MANDIBLE/ TEMPOROMANDIBULAR JOINTS: Unremarkable. SKULL BASE: Unremarkable. TEMPORAL BONES: Middle ears and mastoid grossly unremarkable. OTHER FINDINGS: Soft tissue swelling noted about the nose and maxilla. IMPRESSION: Acute nasal bone fractures. Associated facial soft tissue swelling. Concordant results (preliminary interpretation) provided by [facility]. Procedure Completed: 17:24. Preliminary Report: Dictated and Authenticated: 18:52. Final Interpretation: 08:16. July 16, 2018
--- NOTE | 2018-07-16 08:47 | CT ---
Date of service: 07/15/2018 PROCEDURE: CT Cervical Spine without contrast HISTORY: intoxicated, facial injury COMPARISON: None available. TECHNIQUE: Axial computed tomography images were obtained of the cervical spine without the use of intravenous contrast. Coronal and sagittal reformatted images were created and reviewed. Radiation dose: Total exam DLP = 718.07 mGy-cm. This CT exam was performed using one or more of the following dose reduction techniques: Automated exposure control, adjustment of the mA and/or kV according to patient size, and/or use of iterative reconstruction technique. FINDINGS: VERTEBRAE: No fracture. Rotary scoliosis. No destructive bony lesion. DISCS/SPINAL CANAL/NEURAL FORAMINA: Multilevel degenerative changes, uncovertebral hypertrophy. PARASPINAL SOFT TISSUES: Unremarkable. OTHER FINDINGS: None. IMPRESSION: No acute findings related to/accounting for the clinical presentation. Additional benign and/or incidental findings described above. Concordant results (preliminary interpretation) provided by [facility]. Procedure Completed: 17:28 Preliminary Report: Dictated and Authenticated: 18:42. Final Interpretation: 08:43. July 16, 2018
== END 2018-07-15 20:09 | disposition home or self-care (01) ==
LOC: ED 15:26
DX: F10.129 Alcohol abuse with intoxication, unspecified (principal); S02.2XXA Fracture of nasal bones, initial encounter for closed fracture; S00.81XA Abrasion of other part of head, initial encounter; X58.XXXA Exposure to other specified factors, initial encounter; I10 Essential (primary) hypertension; E11.9 Type 2 diabetes mellitus without complications; F17.210 Nicotine dependence, cigarettes, uncomplicated

== ENCOUNTER 2018-07-18 13:42 | Emergency (ER) | payer OTHER ==
[2018-07-18 13:43] VITALS: PULSE 73
[2018-07-18 13:53] VITALS: BMI 29.6
--- NOTE | 2018-07-18 14:20 | ED PDOC ---
Arrival/HPI - General Chief Complaint: Alcohol Ingestion Time Seen by Provider: 07/18/18 14:10 Historian: EMS EM Caveat: Intoxicated - History of Present Illness Associated Symptoms (Text): A 57 year old male, whose past medical history includes alcohol abuse, depression, hypertension, and diabetes, brought to ER by EMS from his doctor's office after patient was noted to walk into the office visibly intoxicated. Per ER nurse, patient admitted to drinking 2 bottles of beer. Upon provider interview, patient is uncooperative and states "I am deep in prayer"; patient declines to answer questions and states "I'll take the 5th." A full HPI & ROS is unavailable as patient is uncooperative. Past Medical History - Provider Review Nursing Documentation Reviewed: Yes - Past History Past History: Unable to Obtain - Infectious Disease Hx of Infectious Diseases: None - Tetanus Immunization Tetanus Immunization: Unknown - Cardiac Hx Cardiac Disorders: Yes Other/Comment: "i take metoprolol" - Pulmonary Hx Respiratory Disorders: No - Neurological Hx Neurological Disorder: No - HEENT Hx HEENT Disorder: No - Renal Hx Renal Disorder: No - Endocrine/Metabolic Hx Endocrine Disorders: Yes - Hematological/Oncological Hx Blood Disorders: No - Integumentary Hx Dermatological Disorder: No - Musculoskeletal/Rheumatological Hx Musculoskeletal Disorders: Yes - Gastrointestinal Hx Gastrointestinal Disorders: No - Genitourinary/Gynecological Hx Genitourinary Disorders: No - Psychiatric Hx Psychophysiologic Disorder: Yes Hx Substance Use: No (denies) - Past Surgical History Past Surgical History: Non-Contributing - Surgical History Hx Orthopedic Surgery: Yes Other/Comment: had sx to drain left elbow infection 10 yrs ago - Anesthesia Hx Anesthesia: Yes - Suicidal Assessment Feels Threatened In Home Enviroment: No Family/Social History - Physician Review Nursing Documentation Reviewed: Yes Family/Social History: Unknown Family HX Smoking Status: Light Smoker < 10 Cigarettes Daily Hx Alcohol Use: Yes Amount per day: 10 Hx Substance Use: No (denies) Hx Substance Use Treatment: No Allergies/Home Meds Allergies/Adverse Reactions: Allergies bee venom protein (honey bee) Allergy (Verified 07/15/18 15:34) URTICARIA Home Medications: Home Meds Medication Instructions Recorded Confirmed Gabapentin 300 mg PO TID 04/17/18 07/15/18 Venlafaxine [Effexor] 37.5 mg PO DAILY 04/17/18 07/15/18 Review of Systems - Review of Systems Systems not reviewed;Unavailable: Uncooperative Physical Exam - Physical Exam Narrative Physical Exam (Text): Patient declined physical exam. Vital Signs Reviewed: Yes Temperature: Afebrile Blood Pressure: Normal Pulse: Regular Respiratory Rate: Normal Appearance: Positive for: Other (Alcohol on breath) Pain Distress: None - Systems Exam Head: Present: Abrasion (healing abrasions noted to left periorbital area as well as bridge of nose; consistent with patient's ER visit on 07/15/18) Pupils: Present: PERRL Extroacular Muscles: Present: EOMI Mouth: Present: Other (Alcohol on breath) Neck: Present: Normal Range of Motion Respiratory/Chest: Present: Clear to Auscultation, Good Air Exchange. No: Respiratory Distress, Accessory Muscle Use Cardiovascular: Present: Regular Rate and Rhythm, Normal S1, S2. No: Murmurs Abdomen: No: Tenderness, Distention, Peritoneal Signs Back: Present: Normal Inspection Upper Extremity: Present: Normal Inspection. No: Cyanosis, Edema Lower Extremity: Present: Normal Inspection. No: Edema Neurological: Present: GCS=15, CN II-XII Intact, Speech Normal Skin: Present: Warm, Dry, Normal Color. No: Rashes Psychiatric: Present: Alert Medical Decision Making ED Course and Treatment: Impression: 57yo male brought to ER due to alcohol intoxication Plan: -- Per THIRD HELPER, pt agreed to blood draw * Labs * UDS * Urinalysis -- Reassess and disposition Prior Visits: Notes and results from previous visits were reviewed. Patient was last seen in the emergency department on 07/15 for alcohol intoxication, fall, abrasions on head. Patient was discharged home. Progress Notes: 07/18/18 19:00 Patient states feeling better and would like to go home. Patient is very well appearing and non-toxic. Vital signs are stable. I discussed the results of the work-up, diagnosis and treatment. Written discharge instructions were provided to patient. Additional verbal instructions were given and discussed with patient. We discussed the importance of follow up with PCP/consultants. I also reiterated reasons to immediately return to the ER including: worsening in current symptoms and/or new, continued, or concerning symptoms. Pt understood and agreed. - Scribe Statement The provider has reviewed the documentation as recorded by the Josi Garcia Provider Scribe Attestation: All medical record entries made by the Scribe were at my direction and perso nura dictated by me. I have reviewed the chart and agree that the record accurately reflects my personal performance of the history, physical exam, medical decision making, and the department course for this patient. I have also personally directed, reviewed, and agree with the discharge instructions and disposition. Disposition/Present on Arrival - Present on Arrival History of DVT/PE: No History of Uncontrolled Diabetes: No Urinary Catheter: No History of Decub. Ulcer: No History Surgical Site Infection Following: None - Disposition Diagnosis: Alcohol intoxication Disposition: HOME/ ROUTINE Disposition Time: 19:01 Patient Problems: Current Active Problems Problem Status Onset Alcohol intoxication Acute Condition: STABLE Discharge Instructions (ExitCare): Alcohol Abuse and Alcoholism (DC) Additional Instructions: EULOGIO ZUÑIGA, thank you for letting us take care of you today. Your provider was Liliana Russ MD and you were treated for ETOH. The emergency medical care you received today was directed at your acute symptoms. If you were prescribed any medication, please fill it and take as directed. It may take several days for your symptoms to resolve. Return to the Emergency Department if your symptoms worsen, do not improve, or if you have any other problems. Please contact your doctor for a follow up appointment in 1 day. Bring any paperwork you were given at discharge with you along with any medications you are taking to your follow up visit. Our treatment cannot replace ongoing medical care by a primary care provider outside of the emergency department. Thank you for allowing the [facility] team to be part of your care today. Referrals: Sully Mendiola MD [Primary Care Provider] - Follow up with primary Forms: [employer] (V[place]an)
[2018-07-18 15:07] VITALS: RESP 18; O2SAT 96
[2018-07-18 15:31] LABS: BASO # 0.01 K/mm3 (0.0-2.0); BASO % 0.2 % (0.0-3.0); EOS # 0.2 (0.0-0.7); EOS % 3.7 % (1.5-5.0); GRAN # 3.1 (1.4-6.5); GRAN % 53.9 % (50.0-68.0); HEMOGLOBIN 12.9 g/dL (14.0-18.0); LYMPH % 35.1 % (22.0-35.0); MEAN CELL VOLUME 95.8 fl (80.0-105.0); MEAN CORPUSCULAR HEMOGLOBIN 32.2 pg (25.0-35.0); MEAN CORPUSCULAR HGB CONC 33.6 g/dl (31.0-37.0); MEAN PLATELET VOLUME 9.5 fl (7.0-11.0); MONO # 0.4 (0.1-0.6); MONO % 7.1 % (1.0-6.0); RBC 4.01 10^6/uL (3.5-6.1); RED CELL DISTRIBUTION WIDTH 14.1 % (11.5-14.5); WHITE BLOOD COUNT 5.8 10^3/ul (4.5-11.0)
[2018-07-18 15:40] LABS: ACETAMINOPHEN < 10.0 ug/ml (10.0-20.0); SALICYLATE < 1 mg/dL (2.0-20.0)
[2018-07-18 16:25] LABS: ALB/GLOB RATIO 1.4 (1.1-1.8); ALT/SGPT 39 U/L (7-56); AST/SGOT 37 U/L (17-59); BLOOD UREA NITROGEN 17 mg/dL (7-21); CALCIUM 8.8 mg/dL (8.4-10.5); GFR NON-AFRICAN AMERICAN > 60
[2018-07-18 19:18] VITALS: BP 122/82; PULSE 96; TEMP 97.7
== END 2018-07-18 19:15 | disposition home or self-care (01) ==
LOC: ED 13:42
DX: F10.129 Alcohol abuse with intoxication, unspecified (principal); E11.9 Type 2 diabetes mellitus without complications; I10 Essential (primary) hypertension; F17.210 Nicotine dependence, cigarettes, uncomplicated

== ENCOUNTER 2018-07-19 09:30 | Emergency (ER) | payer OTHER ==
[2018-07-19 09:30] VITALS: PULSE 73; BMI 29.6
--- NOTE | 2018-07-19 11:24 | ED PDOC ---
Addendum entered and electronically signed by Clari Santos PA 07/19/18 18:54: Addendum Addendum: 07/19/18 18:53 Pt bib EMS for alcohol intoxication He slept comfortably in ED He was Observed in ED for hours On re evaluation he had a stable gait without help. He was AAOx3 and requested to be DC home and he was DC, Original Note: Arrival/HPI - General Historian: Patient - History of Present Illness Narrative History of Present Illness (Text): 07/19/18 11:15 57yo male with pmhx of alcohol abuse bib EMS for alcohol intoxication. Per the EMS pt was picked up from the street, where he was laying down drunk on the street. Pt is well known to this ED for alcohol intoxication. His last visit to the ED was on 07/18/18 for same complaint. Pt is not answering any questions in ED. He is rude and obnxious. States he wants to sleep. <Clari Santos A - Last Filed: 07/19/18 17:37> <Porsha Cabrera - Last Filed: 07/19/18 17:42> - General Chief Complaint: Alcohol Ingestion Time Seen by Provider: 07/19/18 09:33 Past Medical History - Provider Review Nursing Documentation Reviewed: Yes - Past History Past History: Unable to Obtain - Infectious Disease Hx of Infectious Diseases: None - Tetanus Immunization Tetanus Immunization: Unknown - Cardiac Hx Cardiac Disorders: Yes Other/Comment: "i take metoprolol" - Pulmonary Hx Respiratory Disorders: No - Neurological Hx Neurological Disorder: No - HEENT Hx HEENT Disorder: No - Renal Hx Renal Disorder: No - Endocrine/Metabolic Hx Endocrine Disorders: Yes - Hematological/Oncological Hx Blood Disorders: No - Integumentary Hx Dermatological Disorder: No - Musculoskeletal/Rheumatological Hx Musculoskeletal Disorders: Yes - Gastrointestinal Hx Gastrointestinal Disorders: No - Genitourinary/Gynecological Hx Genitourinary Disorders: No - Psychiatric Hx Psychophysiologic Disorder: Yes Hx Substance Use: No (denies) - Past Surgical History Past Surgical History: Non-Contributing - Surgical History Hx Orthopedic Surgery: Yes Other/Comment: had sx to drain left elbow infection 10 yrs ago - Anesthesia Hx Anesthesia: Yes - Suicidal Assessment Feels Threatened In Home Enviroment: No <Clari Santos - Last Filed: 07/19/18 17:37> Family/Social History - Physician Review Nursing Documentation Reviewed: Yes Family/Social History: Unknown Family HX Smoking Status: Light Smoker < 10 Cigarettes Daily Hx Alcohol Use: Yes Frequency of alcohol use: Daily Amount per day: 10 Hx Substance Use: No (denies) Hx Substance Use Treatment: No <Clari Santos A - Last Filed: 07/19/18 17:37> Allergies/Home Meds <TomClari A - Last Filed: 07/19/18 17:37> <Porsha Cabrera A - Last Filed: 07/19/18 17:42> Allergies/Adverse Reactions: Allergies bee venom protein (honey bee) Allergy (Verified 07/19/18 09:36) URTICARIA Home Medications: Home Meds Medication Instructions Recorded Confirmed RX: Gabapentin 300 mg PO TID 04/17/18 07/19/18 Venlafaxine [Effexor] 37.5 mg PO DAILY 04/17/18 07/19/18 Review of Systems - Review of Systems Systems not reviewed;Unavailable: Intoxicated <TomClari A - Last Filed: 07/19/18 17:37> Physical Exam - Physical Exam Physical Exam Limitations: Intoxication, Uncooperative Vital Signs Temp Pulse Resp BP Pulse Ox 07/19/18 09:34 98.3 F 88 18 132/80 98 <TomClari A - Last Filed: 07/19/18 17:37> Vital Signs Temp Pulse Resp BP Pulse Ox 07/19/18 14:55 98.0 F 93 H 18 129/91 H 98 07/19/18 11:32 98.2 F 99 H 18 139/96 H 99 07/19/18 09:34 98.3 F 88 18 132/80 98 <Porsha Cabrera A - Last Filed: 07/19/18 17:42> - PA / SHORT ORDER COOK / Resident Statement MD/DO has reviewed & agrees with the documentation as recorded. <Porsha Cabrera - Last Filed: 07/19/18 17:42> Disposition/Present on Arrival - Present on Arrival Any Indicators Present on Arrival: No History of DVT/PE: No History of Uncontrolled Diabetes: No Urinary Catheter: No History of Decub. Ulcer: No History Surgical Site Infection Following: None - Disposition Have Diagnosis and Disposition been Completed?: Yes Disposition Time: 17:40 Patient Plan: Discharge <mingoClari - Last Filed: 07/19/18 17:37> - Disposition Have Diagnosis and Disposition been Completed?: Yes <Porsha Cabrera - Last Filed: 07/19/18 17:42> - Disposition Diagnosis: Alcohol intoxication Disposition: HOME/ ROUTINE Condition: STABLE Discharge Instructions (ExitCare): Alcohol Abuse and Alcoholism (DC) Additional Instructions: Stop drinking alcohol and join AA Follow up with your Doctor Return to ED or any new symptoms Referrals: Sully Mendiola MD [Primary Care Provider] - Follow up with primary Alcoholics Anonymous [Outside] - Follow up with primary Forms: [employer] (Greek)
[2018-07-19 16:48] VITALS: TEMP 98; O2SAT 98
[2018-07-19 18:00] VITALS: BP 130/69; PULSE 90; RESP 19
== END 2018-07-19 17:59 | disposition home or self-care (01) ==
LOC: ED 09:30
DX: F10.129 Alcohol abuse with intoxication, unspecified (principal)

== ENCOUNTER 2018-07-20 22:12 | Emergency (ER) | payer OTHER ==
[2018-07-20 22:12] VITALS: PULSE 73; BMI 29.6
--- NOTE | 2018-07-20 22:33 | ED PDOC ---
Arrival/HPI - General Chief Complaint: Alcohol Ingestion Time Seen by Provider: 07/20/18 22:15 Historian: Patient, EMS - History of Present Illness Narrative History of Present Illness (Text): 07/20/18 22:30 57 year old male, with a past medical history of alcohol abuse, presents to the emergency department by EMS for alcohol intoxication. Patient has a history of recurrent visits to the emergency department for alcohol abuse. Patient admits to drinking alcohol today, doesn't know how much. Patient denies any complaints and states "I want to leave". Patient denies any fevers, chills, headache, dizziness, chest pain, shortness of breath, cough, abdominal pain, nausea, vomiting, diarrhea, back pain, neck pain, urinary/bowel changes, or any other complaint. Time/Duration: Prior to Arrival Past Medical History - Provider Review Nursing Documentation Reviewed: Yes - Past History Past History: Unable to Obtain - Infectious Disease Hx of Infectious Diseases: None - Tetanus Immunization Tetanus Immunization: Unknown - Cardiac Hx Cardiac Disorders: Yes - Pulmonary Hx Respiratory Disorders: No - Neurological Hx Neurological Disorder: No - HEENT Hx HEENT Disorder: No - Renal Hx Renal Disorder: No - Endocrine/Metabolic Hx Endocrine Disorders: Yes - Hematological/Oncological Hx Blood Disorders: No - Integumentary Hx Dermatological Disorder: No - Musculoskeletal/Rheumatological Hx Musculoskeletal Disorders: Yes - Gastrointestinal Hx Gastrointestinal Disorders: No - Genitourinary/Gynecological Hx Genitourinary Disorders: No - Psychiatric Hx Psychophysiologic Disorder: Yes Hx Substance Use: No (denies) - Past Surgical History Past Surgical History: Non-Contributing - Surgical History Hx Orthopedic Surgery: Yes Other/Comment: had sx to drain left elbow infection 10 yrs ago - Anesthesia Hx Anesthesia: Yes - Suicidal Assessment Feels Threatened In Home Enviroment: No Family/Social History - Physician Review Nursing Documentation Reviewed: Yes Family/Social History: No Known Family HX Smoking Status: Light Smoker < 10 Cigarettes Daily Hx Alcohol Use: Yes Frequency of alcohol use: Daily Amount per day: 10 Hx Substance Use: No (denies) Hx Substance Use Treatment: No Allergies/Home Meds Allergies/Adverse Reactions: Allergies bee venom protein (honey bee) Allergy (Verified 07/19/18 09:36) URTICARIA Home Medications: Home Meds Medication Instructions Recorded Confirmed Gabapentin 300 mg PO TID 04/17/18 07/19/18 Venlafaxine [Effexor] 37.5 mg PO DAILY 04/17/18 07/19/18 Review of Systems - Physician Review All systems were reviewed & negative as marked: Yes - Review of Systems Constitutional: absent: Fevers, Night Sweats Respiratory: absent: SOB, Cough Cardiovascular: absent: Chest Pain Gastrointestinal: absent: Abdominal Pain, Diarrhea, Nausea, Vomiting Genitourinary Male: absent: Urinary Output Changes Musculoskeletal: absent: Back Pain, Neck Pain Neurological: absent: Headache, Dizziness Physical Exam Vital Signs Reviewed: Yes Temperature: Afebrile Blood Pressure: Normal Pulse: Regular Respiratory Rate: Normal Appearance: Positive for: Well-Appearing, Non-Toxic, Comfortable Pain Distress: None Mental Status: Positive for: Alert and Oriented X 3 - Systems Exam Head: Present: Atraumatic, Normocephalic Pupils: Present: PERRL Extroacular Muscles: Present: EOMI Conjunctiva: Present: Normal Mouth: Present: Moist Mucous Membranes Neck: Present: Normal Range of Motion Respiratory/Chest: Present: Clear to Auscultation, Good Air Exchange. No: Respiratory Distress, Accessory Muscle Use Cardiovascular: Present: Regular Rate and Rhythm, Normal S1, S2. No: Murmurs Abdomen: No: Tenderness, Distention, Peritoneal Signs Back: Present: Normal Inspection Upper Extremity: Present: Normal Inspection. No: Cyanosis, Edema Lower Extremity: Present: Normal Inspection. No: Edema Neurological: Present: GCS=15, CN II-XII Intact, Speech Normal Skin: Present: Warm, Dry, Normal Color. No: Rashes Psychiatric: Present: Alert, Oriented x 3, Intoxicated Medical Decision Making ED Course and Treatment: 07/20/18 22:35 Impression: 57 year old male presents for alcohol intoxication. Plan: -- Reassess and disposition Prior Visits: Notes and results from previous visits were reviewed. Progress Notes: 07/20/18 22:40 In the emergency department, patient was seen attempting to leave, staggering towards the doors. Patient was non compliant when told to wait in his room and had to be restrained and sedated for his own protection. 07/21/18 06:35 Patient is awake alert,sober with steady gait in ED. - Medication Orders Current Medication Orders: Discontinued Medications Ziprasidone (Geodon Inj) 20 mg IM STAT STA; Protocol Stop: 07/20/18 22:21 - Scribe Statement The provider has reviewed the documentation as recorded by the Josi Curry Provider Scribe Attestation: All medical record entries made by the Scribe were at my direction and personally dictated by me. I have reviewed the chart and agree that the record accurately reflects my personal performance of the history, physical exam, medical decision making, and the department course for this patient. I have also personally directed, reviewed, and agree with the discharge instructions and disposition. Disposition/Present on Arrival - Present on Arrival Any Indicators Present on Arrival: No History of DVT/PE: No History of Uncontrolled Diabetes: No Urinary Catheter: No History of Decub. Ulcer: No History Surgical Site Infection Following: None - Disposition Have Diagnosis and Disposition been Completed?: Yes Diagnosis: Alcohol abuse Disposition: HOME/ ROUTINE Disposition Time: 06:40 Patient Plan: Discharge Condition: GOOD Discharge Instructions (ExitCare): Alcohol Abuse and Alcoholism (DC) Referrals: Alcoholics Anonymous [Outside] - Follow up with primary Forms: [employer] (Macedonian)
[2018-07-21 06:40] VITALS: BP 132/82; PULSE 88; RESP 17; TEMP 98.2; O2SAT 99
== END 2018-07-21 06:40 | disposition home or self-care (01) ==
LOC: ED 22:12
DX: F10.10 Alcohol abuse, uncomplicated (principal)
CPT/HCPCS: 96372; 99283; J3486

== ENCOUNTER 2018-07-29 22:22 | Emergency (ER) | payer OTHER ==
[2018-07-29 22:23] VITALS: PULSE 73; BMI 29.6
--- NOTE | 2018-07-29 22:51 | ED PDOC ---
Arrival/HPI - General Chief Complaint: Alcohol Ingestion Time Seen by Provider: 07/29/18 22:25 Historian: Patient, EMS EM Caveat: Intoxicated - History of Present Illness Narrative History of Present Illness (Text): 07/29/18 22:45 57 year old male, whose past medical history includes alcohol abuse, hypertension, and depression, presents to the emergency department by EMS for public intoxication. Patient admits to drinking tonight. Patient has a history of recurrent visits to the emergency department for alcohol abuse. HPI and ROS limited due to patient's intoxicated state. Symptom Onset: Gradual Context: Street Past Medical History - Provider Review Nursing Documentation Reviewed: Yes - Past History Past History: Unable to Obtain - Infectious Disease Hx of Infectious Diseases: None - Tetanus Immunization Tetanus Immunization: Unknown - Cardiac Hx Cardiac Disorders: Yes Other/Comment: "i take metoprolol" - Pulmonary Hx Respiratory Disorders: No - Neurological Hx Neurological Disorder: No - HEENT Hx HEENT Disorder: No - Renal Hx Renal Disorder: No - Endocrine/Metabolic Hx Endocrine Disorders: Yes - Hematological/Oncological Hx Blood Disorders: No - Integumentary Hx Dermatological Disorder: No - Musculoskeletal/Rheumatological Hx Musculoskeletal Disorders: Yes - Gastrointestinal Hx Gastrointestinal Disorders: No - Genitourinary/Gynecological Hx Genitourinary Disorders: No - Psychiatric Hx Psychophysiologic Disorder: Yes Hx Substance Use: No (denies) - Past Surgical History Past Surgical History: Non-Contributing - Surgical History Hx Orthopedic Surgery: Yes Other/Comment: had sx to drain left elbow infection 10 yrs ago - Anesthesia Hx Anesthesia: Yes - Suicidal Assessment Feels Threatened In Home Enviroment: No Family/Social History - Physician Review Nursing Documentation Reviewed: Yes Family/Social History: No Known Family HX Smoking Status: Light Smoker < 10 Cigarettes Daily Hx Alcohol Use: Yes Frequency of alcohol use: Daily Amount per day: 10 Hx Substance Use: No (denies) Hx Substance Use Treatment: No Allergies/Home Meds Allergies/Adverse Reactions: Allergies bee venom protein (honey bee) Allergy (Verified 07/29/18 22:36) URTICARIA Home Medications: Home Meds Medication Instructions Recorded Confirmed Gabapentin 300 mg PO TID 04/17/18 07/19/18 Venlafaxine [Effexor] 37.5 mg PO DAILY 04/17/18 07/19/18 Review of Systems - Physician Review All systems were reviewed & negative as marked: Yes - Review of Systems Systems not reviewed;Unavailable: Intoxicated Physical Exam Vital Signs Reviewed: Yes Appearance: Positive for: Well-Appearing, Non-Toxic, Comfortable Pain Distress: None Mental Status: Positive for: other (Intoxicated) - Systems Exam Head: Present: Atraumatic, Normocephalic Pupils: Present: PERRL Extroacular Muscles: Present: EOMI Conjunctiva: Present: Normal Mouth: Present: Moist Mucous Membranes Neck: Present: Normal Range of Motion Respiratory/Chest: Present: Clear to Auscultation, Good Air Exchange. No: Respiratory Distress, Accessory Muscle Use Cardiovascular: Present: Regular Rate and Rhythm, Normal S1, S2. No: Murmurs Abdomen: No: Tenderness, Distention, Peritoneal Signs Back: Present: Normal Inspection Upper Extremity: Present: Normal Inspection. No: Cyanosis, Edema Lower Extremity: Present: Normal Inspection. No: Edema Neurological: Present: GCS=15, CN II-XII Intact, Speech Normal Skin: Present: Warm, Dry, Normal Color. No: Rashes Psychiatric: Present: Alert, Normal Insight, Normal Concentration, Intoxicated Medical Decision Making ED Course and Treatment: 07/29/18 22:45 Impression: 57 year old male presents for public intoxication tonight. Plan: -- Sobriety -- Reassess and disposition Prior Visits: Notes and results from previous visits were reviewed. Progress Notes: 07/30/18 06:23 Patient is awake, alert, and ambulating with a steady gait. Patient is sober and denies any complaints at this time. Patient is stable for discharge. - Lab Interpretations I have reviewed the lab results: Yes - Scribe Statement The provider has reviewed the documentation as recorded by the Josi Baker Provider Scribe Attestation: All medical record entries made by the Scribgail were at my direction and personally dictated by me. I have reviewed the chart and agree that the record accurately reflects my personal performance of the history, physical exam, medical decision making, and the department course for this patient. I have also personally directed, reviewed, and agree with the discharge instructions and disposition. Disposition/Present on Arrival - Present on Arrival Any Indicators Present on Arrival: No History of DVT/PE: No History of Uncontrolled Diabetes: No Urinary Catheter: No History of Decub. Ulcer: No History Surgical Site Infection Following: None - Disposition Have Diagnosis and Disposition been Completed?: Yes Diagnosis: Alcohol intoxication Disposition: HOME/ ROUTINE Disposition Time: 06:34 Patient Plan: Discharge Patient Problems: Current Active Problems Problem Status Onset Alcohol intoxication Acute Condition: STABLE Referrals: Alcoholics Anonymous [Outside] - Follow up with primary Forms: [employer] (Tristanian)
[2018-07-29 22:53] VITALS: RESP 17
[2018-07-30 06:35] VITALS: BP 133/62; PULSE 72; TEMP 98; O2SAT 100
== END 2018-07-30 06:35 | disposition home or self-care (01) ==
LOC: ED 22:22
DX: F10.129 Alcohol abuse with intoxication, unspecified (principal); F17.210 Nicotine dependence, cigarettes, uncomplicated; I10 Essential (primary) hypertension

== ENCOUNTER 2018-08-02 19:40 | Emergency (ER) | payer OTHER ==
[2018-08-02 19:40] VITALS: PULSE 73
[2018-08-02 19:46] VITALS: BMI 34.7
[2018-08-02] MEDS ORDERED: Multivitamin (MVI) 10 ML, Thiamine 100 MG, Folic Acid 1 MG in Sodium Chloride 0.9% 1,00... IV ONE (20:26)
--- NOTE | 2018-08-02 20:36 | ED PDOC ---
Arrival/HPI <Nazario Clements - Last Filed: 08/03/18 07:08> - General Historian: EMS EM Caveat: Intoxicated - Critical Care Critical Care Minutes: 30 minutes - History of Present Illness Narrative History of Present Illness (Text): 08/02/18 20:31 57 year old male with a past medical history of atrial fibrillation, dyslipidemia, hypertension and diabetes comes in via EMS after drinking too much. Per patient, he can't recall how he got here. Patient also reports right sided numbness for the past two weeks. He reports this is the first time having this sensation. It reports it being constant in nature with no other associated symptoms. He denies any recent accident or trauma to the area. Patient also admits to having a problem with alcohol and would like to quit. Patient was intoxicated at the time of the interview. Past medical history retrieved by chart review. PMD: Denies Past medical history: atrial fibrillation, chf, dyslipidemia, hypertension, diabetes Medications: Unable to obtain Allergies: Been venom Surgical history: Left elbow surgery Time/Duration: < week Symptom Onset: Gradual Symptom Course: Unchanged Quality: Other Severity Level: 2 Activities at Onset: Rest Context: Sitting <Prabhakar Estesn - Last Filed: 08/05/18 19:14> - General Chief Complaint: Alcohol Ingestion Time Seen by Provider: 08/02/18 19:51 Past Medical History - Provider Review Nursing Documentation Reviewed: Yes - Travel History Have you recently traveled outside [place] w/in the past 3 mons?: No - Past History Past History: Unable to Obtain - Infectious Disease Hx of Infectious Diseases: None - Tetanus Immunization Tetanus Immunization: Unknown - Cardiac Hx Cardiac Disorders: Yes Other/Comment: "i take metoprolol" - Pulmonary Hx Respiratory Disorders: No - Neurological Hx Neurological Disorder: No - HEENT Hx HEENT Disorder: No - Renal Hx Renal Disorder: No - Endocrine/Metabolic Hx Endocrine Disorders: Yes - Hematological/Oncological Hx Blood Disorders: No - Integumentary Hx Dermatological Disorder: No - Musculoskeletal/Rheumatological Hx Musculoskeletal Disorders: Yes - Gastrointestinal Hx Gastrointestinal Disorders: No - Genitourinary/Gynecological Hx Genitourinary Disorders: No - Psychiatric Hx Psychophysiologic Disorder: Yes Hx Substance Use: No (denies) - Past Surgical History Past Surgical History: Non-Contributing - Surgical History Hx Orthopedic Surgery: Yes Other/Comment: had sx to drain left elbow infection 10 yrs ago - Anesthesia Hx Anesthesia: Yes - Suicidal Assessment Feels Threatened In Home Enviroment: No <Mahamed Estes - Last Filed: 08/05/18 19:14> Family/Social History - Physician Review Nursing Documentation Reviewed: Yes Family/Social History: No Known Family HX Smoking Status: Light Smoker < 10 Cigarettes Daily Hx Alcohol Use: Yes Frequency of alcohol use: Daily Amount per day: 10 Hx Substance Use: No (denies) Hx Substance Use Treatment: No <Mahamed Estes - Last Filed: 08/05/18 19:14> Allergies/Home Meds <Nazario Clements - Last Filed: 08/03/18 07:08> <Mahamed Estes - Last Filed: 08/05/18 19:14> Allergies/Adverse Reactions: Allergies bee venom protein (honey bee) Allergy (Verified 08/03/18 17:53) URTICARIA Home Medications: Home Meds Medication Instructions Recorded Confirmed RX: Gabapentin 300 mg PO TID 04/17/18 07/19/18 Venlafaxine [Effexor] 37.5 mg PO DAILY 04/17/18 07/19/18 Review of Systems - Physician Review All systems were reviewed & negative as marked: Yes - Review of Systems Systems not reviewed;Unavailable: Intoxicated Constitutional: Normal. absent: Fatigue, Weight Change, Fevers, Night Sweats Eyes: Normal. absent: Vision Changes, Photophobia ENT: Normal. absent: Hearing Changes, Tinnitus, Epistaxis Respiratory: Normal. absent: SOB, Cough, Sputum Cardiovascular: Normal. absent: Chest Pain, Syncope Gastrointestinal: Normal. absent: Abdominal Pain, Stool Changes, Appetite Changes Genitourinary Male: Normal. absent: Dysuria, Frequency Musculoskeletal: Normal. absent: Back Pain, Neck Pain, Myalgias Skin: Normal. absent: Rash, Pruritis Neurological: Other (+Numbness of Right sided of upper and lower extremity) Endocrine: Normal. absent: Diaphoresis, Polyuria, Polydipsia Hemo/Lymphatic: Normal. absent: Adenopathy, Easy Bleeding Psychiatric: Normal. absent: Anxiety, Depression <Mahamed Estes - Last Filed: 08/05/18 19:14> Physical Exam Vital Signs Temp Pulse Resp BP Pulse Ox 08/03/18 06:24 98 H 20 158/79 H 96 08/03/18 04:00 84 18 153/71 H 96 08/03/18 02:00 89 20 153/82 H 95 08/03/18 00:00 82 18 154/70 H 99 08/02/18 22:24 95 H 163/94 H 08/02/18 20:07 97.9 F 100 H 17 163/91 H 98 <Nazario Clements - Last Filed: 08/03/18 07:08> - Physical Exam Physical Exam Limitations: Intoxication Vital Signs Reviewed: Yes Vital Signs Temp Pulse Resp BP Pulse Ox 08/02/18 20:07 97.9 F 100 H 17 163/91 H 98 Temperature: Afebrile Blood Pressure: Hypertensive Pulse: Tachycardic Respiratory Rate: Normal Appearance: Positive for: Well-Appearing, Non-Toxic, Comfortable. No: Cachectic Pain Distress: None Mental Status: Positive for: Alert and Oriented X 3. No: Confused, Agitated Finger Stick Blood Glucose: 113 - Systems Exam Head: Present: Atraumatic, Normocephalic. No: Tenderness, Laceration Pupils: Present: PERRL. No: Sluggish, Non-Reactive Extroacular Muscles: Present: EOMI. No: Gaze Palsy, Entrapment Conjunctiva: Present: Injected Mouth: Present: Moist Mucous Membranes. No: Dry, Normal Teeth Pharnyx: Present: Normal. No: ERYTHEMA, EXUDATE, Uvular Deviation, Other Neck: Present: Normal Range of Motion. No: Meningeal Signs, Paraspinal Tenderness, JVD, Lymphadenopathy Respiratory/Chest: Present: Clear to Auscultation, Good Air Exchange. No: Wheezes Cardiovascular: Present: Normal S1, S2, Tachycardic Abdomen: Present: Normal Bowel Sounds. No: Tenderness, Distention Upper Extremity: Present: Normal Inspection. No: Cyanosis, Edema, Swelling, Erythema Lower Extremity: Present: Normal Inspection. No: CALF TENDERNESS, Andrea's Sign, Tenderness, Temperature Abnormalties Neurological: Present: CN II-XII Intact, Normal Sensory Function Skin: Present: Dry, Normal Color. No: Cold, Pale Psychiatric: Present: Alert, Oriented x 3, Intoxicated <Mahamed Estes - Last Filed: 08/05/18 19:14> Medical Decision Making ED Course and Treatment: Patient Seen with Resident: In agreement with resident note which contains more details about the patient. Patient seen and evaluated with resident. Came up with plan and treatment together. Pt, past medical history of atrial fibrillation, dyslipidemia, hypertension and diabetes, brought in for alcohol intoxication. - Lab Interpretations Lab Results: 08/02/18 21:48 08/02/18 21:48 Lab Results 08/02/18 21:48: Sodium 144, Potassium 4.6, Chloride 105, Carbon Dioxide 27, Anion Gap 16, BUN 18, Creatinine 0.9, Est GFR ( Amer) > 60, Est GFR (Non- Af Amer) > 60, Random Glucose 117 H, Calcium 8.7, Total Bilirubin 0.4, AST 54, ALT 59 H, Alkaline Phosphatase 76, Total Protein 7.2, Albumin 4.2, Globulin 3.0, Albumin/Globulin Ratio 1.4 08/02/18 21:48: WBC 7.1, RBC 4.43, Hgb 14.1, Hct 42.0, MCV 94.8, MCH 31.8, MCHC 33.6, RDW 14.4, Plt Count 170, MPV 9.2, Gran % 47.8 L, Lymph % (Auto) 42.5 H, Cherry % (Auto) 8.6 H, Eos % (Auto) 0.8 L, Baso % (Auto) 0.3, Gran # 3.39, Lymph # (Auto) 3.0, Cherry # (Auto) 0.6, Eos # (Auto) 0.1, Baso # (Auto) 0.02 08/02/18 20:03: POC Glucose (mg/dL) 113 H - RAD Interpretation Radiology Orders: 08/02/18 20:25 HEAD W/O CONTRAST [CT] Stat - Medication Orders Current Medication Orders: Discontinued Medications Multivitamins/Vitamin C 10 ml/Thiamine HCl 100 mg/ Folic Acid 1 mg/ Sodium Chloride 1,011.2 mls @ 100 mls/hr IV .Q10H7M ONE Stop: 08/03/18 06:32 Last Admin: 08/02/18 22:19 Dose: 100 mls/hr eMAR Start Stop Document 08/02/18 22:19 HI (Rec: 08/02/18 22:19 [place] [id number]) Intravenous Solution Start Date 08/02/18 Start Time 22:19 <Nazario Clements - Last Filed: 08/03/18 07:08> ED Course and Treatment: 08/02/18 20:40 57 year old male with a pastg medical history of atrial fibrillation, chf, dyslipidemia, hypertension and diabetes presents to hospital for alcohol intoxication and right sided numbness for the past two weeks. Plan: CBC CMP Head CT EKG Banana bag - Critical Care Critical Care Minutes: 30 minutes - RAD Interpretation Radiology Orders: 08/02/18 20:25 HEAD W/O CONTRAST [CT] Stat - Medication Orders Current Medication Orders: Multivitamins/Vitamin C 10 ml/Thiamine HCl 100 mg/ Folic Acid 1 mg/ Sodium Chloride 1,011.2 mls @ 100 mls/hr IV .Q10H7M ONE Stop: 08/03/18 06:32 <Mahamed Estes - Last Filed: 08/05/18 19:14> - PA / ROBOT OPERATOR / Resident Statement / has reviewed & agrees with the documentation as recorded. / has examined the patient and agrees with the treatment plan. <Nazario Clements - Last Filed: 08/03/18 07:08> Disposition/Present on Arrival <Nazario Clements - Last Filed: 08/03/18 07:08> - Present on Arrival Any Indicators Present on Arrival: No History of DVT/PE: No History of Uncontrolled Diabetes: No Urinary Catheter: No History of Decub. Ulcer: No History Surgical Site Infection Following: None - Disposition Have Diagnosis and Disposition been Completed?: Yes Disposition Time: 07:00 <Mahamed Estes - Last Filed: 08/05/18 19:14> - Disposition Diagnosis: Alcohol intoxication Disposition: HOME/ ROUTINE Condition: IMPROVED Discharge Instructions (ExitCare): Alcohol Abuse and Alcoholism (DC) Additional Instructions: EULOGIO ZUÑIGA, thank you for letting us take care of you today. The emergency medical care you received today was directed at your acute symptoms. If you were prescribed any medication, please fill it and take as directed. It may take several days for your symptoms to resolve. Return to the Emergency Department if your symptoms worsen, do not improve, or if you have any other problems. Please contact your doctor or call one of the physicians/clinics you have been referred to that are listed on the Patient Visit Information form that is included in your discharge packet. Bring any paperwork you were given at discharge with you along with any medications you are taking to your follow up visit. Our treatment cannot replace ongoing medical care by a primary care pro vider outside of the emergency department. Thank you for allowing the [facility] team to be part of your care today. Follow up with your doctor for outpatient care. Referrals: Nazario Rivas MD [Primary Care Provider] - Follow up with primary Forms: [employer] (Czech)
[2018-08-02 22:13] LABS: BASO # 0.02 K/mm3 (0.0-2.0); BASO % 0.3 % (0.0-3.0); EOS # 0.1 (0.0-0.7); EOS % 0.8 % (1.5-5.0); GRAN # 3.39 (1.4-6.5); GRAN % 47.8 % (50.0-68.0); HEMOGLOBIN 14.1 g/dL (14.0-18.0); LYMPH % 42.5 % (22.0-35.0); MEAN CELL VOLUME 94.8 fl (80.0-105.0); MEAN CORPUSCULAR HEMOGLOBIN 31.8 pg (25.0-35.0); MEAN CORPUSCULAR HGB CONC 33.6 g/dl (31.0-37.0); MEAN PLATELET VOLUME 9.2 fl (7.0-11.0); MONO # 0.6 (0.1-0.6); MONO % 8.6 % (1.0-6.0); RBC 4.43 10^6/uL (3.5-6.1); RED CELL DISTRIBUTION WIDTH 14.4 % (11.5-14.5); WHITE BLOOD COUNT 7.1 10^3/uL (4.5-11.0)
[2018-08-02 22:25] LABS: ALBUMIN 4.2 g/dL (3.0-4.8); BLOOD UREA NITROGEN 18 mg/dL (7-21); CALCIUM 8.7 mg/dL (8.4-10.5); GFR NON-AFRICAN AMERICAN > 60
[2018-08-02 22:26] LABS: ALB/GLOB RATIO 1.4 (1.1-1.8); ALT/SGPT 59 U/L (7-56); AST/SGOT 54 U/L (17-59)
--- NOTE | 2018-08-03 08:44 | CT ---
Date of service: 08/03/2018 PROCEDURE: CT HEAD WITHOUT CONTRAST. HISTORY: loc COMPARISON: None available. TECHNIQUE: Axial computed tomography images were obtained through the head/brain without intravenous contrast. Radiation dose: Total exam DLP = 1064.1 mGy-cm. This CT exam was performed using one or more of the following dose reduction techniques: Automated exposure control, adjustment of the mA and/or kV according to patient size, and/or use of iterative reconstruction technique. FINDINGS: HEMORRHAGE: No intracranial hemorrhage. BRAIN: No mass effect or edema. No atrophy or chronic microvascular ischemic changes. VENTRICLES: Unremarkable. No hydrocephalus. CALVARIUM: Unremarkable. PARANASAL SINUSES: Unremarkable as visualized. No significant inflammatory changes. MASTOID AIR CELLS: Unremarkable as visualized. No inflammatory changes. OTHER FINDINGS: The report concurs with the preliminary [facility] report IMPRESSION: No acute findings
[2018-08-03 09:12] VITALS: BP 138/74; PULSE 92; RESP 18; TEMP 98; O2SAT 98
--- NOTE | 2018-08-03 09:58 | CARD ---
APPROVED REPORT Date of service: 08/02/2018 EKG Measurement Heart [id number] DC [id number] <Conclusion> Sinus tachycardia Otherwise normal ECG
== END 2018-08-03 09:13 | disposition home or self-care (01) ==
LOC: ED 19:40
DX: F10.129 Alcohol abuse with intoxication, unspecified (principal); I10 Essential (primary) hypertension; I48.91 Unspecified atrial fibrillation; E11.9 Type 2 diabetes mellitus without complications; E78.5 Hyperlipidemia, unspecified; F17.210 Nicotine dependence, cigarettes, uncomplicated
CPT/HCPCS: 70450; 80053; 82948; 85025; 93005; 96374; 99282; J3411; J7030

== ENCOUNTER 2018-08-04 15:14 | Emergency (ER) | payer OTHER ==
[2018-08-04 15:15] VITALS: PULSE 73; BMI 34.7
[2018-08-04 15:41] VITALS: RESP 18
--- NOTE | 2018-08-04 15:42 | ED PDOC ---
Arrival/HPI - General Chief Complaint: Alcohol Ingestion Time Seen by Provider: 08/04/18 15:16 Historian: Patient, EMS - History of Present Illness Narrative History of Present Illness (Text): 08/04/18 15:41 A 57 year old male, whose past medical history includes alcohol abuse, presents to the emergency department brought in by EMS for alcohol intoxication since earlier. Per EMS, patient was found intoxicated on the street. Patient denies any fever, chills, shortness of breath, chest pain, diarrhea, nausea, vomiting, urinary symptoms, back pain, neck pain, headache, dizziness, or any other complaints. Time/Duration: Prior to Arrival Symptom Onset: Gradual Symptom Course: Unchanged Activities at Onset: Light Context: Home Past Medical History - Provider Review Nursing Documentation Reviewed: Yes - Past History Past History: Unable to Obtain - Infectious Disease Hx of Infectious Diseases: None - Tetanus Immunization Tetanus Immunization: Unknown - Cardiac Hx Atrial Fibrillation: Yes Hx Cardiac Arrhythmia: Yes (afib) Hx Hypertension: Yes Hx Peripheral Edema: Yes - Pulmonary Hx Respiratory Disorders: No - Neurological Hx Neurological Disorder: No - HEENT Hx HEENT Disorder: No - Renal Hx Renal Disorder: No - Endocrine/Metabolic Hx Endocrine Disorders: Yes - Hematological/Oncological Hx Blood Disorders: No - Integumentary Hx Dermatological Disorder: No - Musculoskeletal/Rheumatological Hx Fractures: Yes - Gastrointestinal Hx Gastrointestinal Disorders: No - Genitourinary/Gynecological Hx Genitourinary Disorders: No - Psychiatric Hx Anxiety: Yes Hx Bipolar Disorder: Yes Hx Depression: Yes Hx Substance Use: Yes - Past Surgical History Past Surgical History: Non-Contributing - Surgical History Hx Orthopedic Surgery: Yes Other/Comment: had sx to drain left elbow infection 10 yrs ago - Anesthesia Hx Anesthesia: Yes - Suicidal Assessment Feels Threatened In Home Enviroment: No Family/Social History - Physician Review Nursing Documentation Reviewed: Yes Family/Social History: Unknown Family HX Smoking Status: Heavy Smoker > 10 Cigarettes Daily Hx Alcohol Use: Yes Amount per day: 10 Hx Substance Use: Yes Substance used: cocaine Hx Substance Use Treatment: No Allergies/Home Meds Allergies/Adverse Reactions: Allergies bee venom protein (honey bee) Allergy (Verified 08/03/18 17:53) URTICARIA Home Medications: Home Meds Medication Instructions Recorded Confirmed Gabapentin 300 mg PO TID 04/17/18 07/19/18 Venlafaxine [Effexor] 37.5 mg PO DAILY 04/17/18 07/19/18 Review of Systems - Physician Review All systems were reviewed & negative as marked: Yes - Review of Systems Constitutional: absent: Fevers, Night Sweats Respiratory: absent: SOB Cardiovascular: absent: Chest Pain Gastrointestinal: absent: Diarrhea, Nausea, Vomiting Musculoskeletal: absent: Back Pain, Neck Pain Neurological: absent: Headache, Dizziness Physical Exam Vital Signs Reviewed: Yes Temperature: Hypothermic Blood Pressure: Hypertensive Pulse: Tachycardic Respiratory Rate: Normal Appearance: Positive for: Comfortable, Ill-Appearing, Unkept, Other (Inebriated) Mental Status: Positive for: Alert and Oriented X 3 - Systems Exam Head: Present: Atraumatic, Normocephalic Pupils: Present: PERRL Extroacular Muscles: Present: EOMI Conjunctiva: Present: Normal Mouth: Present: Moist Mucous Membranes Neck: Present: Normal Range of Motion Respiratory/Chest: Present: Clear to Auscultation, Good Air Exchange. No: Respiratory Distress, Accessory Muscle Use Cardiovascular: Present: Regular Rate and Rhythm, Normal S1, S2. No: Murmurs Abdomen: No: Tenderness, Distention, Peritoneal Signs Back: Present: Normal Inspection Upper Extremity: Present: Normal Inspection. No: Cyanosis, Edema Lower Extremity: Present: Normal Inspection. No: Edema Neurological: Present: GCS=15, CN II-XII Intact, Speech Normal Skin: Present: Warm, Dry, Normal Color. No: Rashes Psychiatric: Present: Alert, Oriented x 3, Normal Insight, Normal Concentration, Intoxicated Medical Decision Making ED Course and Treatment: 08/04/18 15:44 Impression: 57 year old male presenting to the emergency department for alcohol intoxication. Plan: -- Reassess and disposition Prior Visits: Notes and results from previous visits were reviewed. Patient is well know to the emergency department. Progress Notes: - Scribe Statement The provider has reviewed the documentation as recorded by the Scribgail Smyth All medical record entries made by the Scribe were at my direction and personally dictated by me. I have reviewed the chart and agree that the record accurately reflects my personal performance of the history, physical exam, medical decision making, and the department course for this patient. I have also personally directed, reviewed, and agree with the discharge instructions and disposition. Disposition/Present on Arrival - Present on Arrival Any Indicators Present on Arrival: No History of DVT/PE: No History of Uncontrolled Diabetes: No Urinary Catheter: No History of Decub. Ulcer: No History Surgical Site Infection Following: None - Disposition Have Diagnosis and Disposition been Completed?: Yes Diagnosis: Alcohol intoxication Disposition: HOME/ ROUTINE Disposition Time: 16:00 Patient Problems: Current Active Problems Problem Status Onset Alcohol intoxication Acute Condition: IMPROVED Discharge Instructions (ExitCare): Alcohol Abuse and Alcoholism (DC) Additional Instructions: EULOGIO ZUÑIGA, thank you for letting us take care of you today. The emergency medical care you received today was directed at your acute symptoms. If you were prescribed any medication, please fill it and take as directed. It may take several days for your symptoms to resolve. Return to the Emergency Department if your symptoms worsen, do not improve, or if you have any other problems. Please contact your doctor or call one of the physicians/clinics you have been referred to that are listed on the Patient Visit Information form that is included in your discharge packet. Bring any paperwork you were given at discharge with you along with any medications you are taking to your follow up visit. Our treatment cannot replace ongoing medical care by a primary care provider outside of the emergency department. Thank you for allowing the [facility] team to be part of your care today. Follow up with our clinic for outpatient care. Referrals: Lizeth Goins MD [Medical Doctor] - Follow up with primary [facility] [Outside] - Follow up with primary Forms: [employer] (Kazakh)
[2018-08-04 22:04] VITALS: TEMP 97.6
[2018-08-05 02:29] VITALS: BP 139/82; PULSE 94; O2SAT 98
== END 2018-08-05 02:53 | disposition home or self-care (01) ==
LOC: ED 15:14
DX: F10.129 Alcohol abuse with intoxication, unspecified (principal)